=== PATIENT | male | born 1950 | race Caucasian/White ===

== ENCOUNTER → 2024-04-20 | Outpatient (CLI) | payer MEDICARE, SELFPAY ==
[2024-04-20 10:20] LABS: Basophils # (Auto) 0.1 Thou/mm3 (0.0-0.2); Basophils % (Auto) 1 % (0-2.5); Eosinophils # (Auto) 0.2 Thou/mm3 (0.0-0.5); Eosinophils % (Auto) 2 % (0-10); Hematocrit 39.2 % (41.0-53.0); Hemoglobin 12.8 g/dL (13.5-16.0); Immature Granulocytes % (Auto) 0 % (0-0); Immature Granulocytes Auto 0.03 Thou/mm3 (0.00-0.00); Lymphocytes # (Auto) 0.9 Thou/mm3 (1.0-4.8); Lymphocytes % (Auto) 11 % (10-50); Mean Corpuscular HGB Conc 32.7 g/dl (31.0-37.0); Mean Corpuscular Hemoglobin 30.5 pg (25.0-35.0); Mean Corpuscular Volume 93 fL (80-100); Monocytes # (Auto) 0.9 Thou/mm3 (0.0-0.8); Monocytes % (Auto) 10 % (0-12); Neutrophils # (Auto) 6.4 Thou/mm3 (1.8-7.7); Neutrophils % (Auto) 76 % (37-80); Nucleated Red Blood Cell % 0 /100 WBC (0); Platelet Count 305 Thou/mm3 (140-440); RDW Standard Deviation 50.3 fL (35.1-43.9); White Blood Count 8.4 Thou/mm3 (3.8-10.6)
[2024-04-20 10:37] LABS: Alanine Aminotransferase 21 U/L (10-49); Albumin, Serum 3.9 gm/dL (3.4-4.8); Alkaline Phosphatase 152 U/L (46-116); Anion Gap 8 (7-16); Aspartate Amino Transferase 19 U/L (0-34); BUN/Creatinine Ratio 19 Ratio (12-20); Bilirubin,Direct 0.3 mg/dL (0.0-0.3); Bilirubin,Total 0.8 mg/dL (0.3-1.2); Blood Urea Nitrogen 21 mg/dL (9-23); Calcium 9.1 mg/dL (8.3-10.6); Carbon Dioxide 28.2 mMol/L (20.0-31.0); Cardiac Risk Estimate 3.3 RATIO (4.0-6.7); Chloride 103 mMol/L (98-107); Cholesterol 166 mg/dL (132-200); Creatinine (Component) 1.1 mg/dL (0.6-1.3); Free T4 (Free Thyroxine) 1.23 ng/dL (0.89-1.76); Glucose 109 mg/dL (74-106); HDL Cholesterol 51 mg/dL (40-60); LDL Cholesterol,Calculated 100 mg/dL (0-130); Osmolality,Calculated 281 (275-295); Potassium 4.3 mMol/L (3.4-5.1); Sodium 139 mMol/L (136-145); Thyroid Stimulating Hormone 3.91 uIU/mL (0.55-4.78); Total Protein 6.5 gm/dL (5.7-8.2); Triglycerides 76 mg/dL (30-150); eGFR > 60 See Note
[2024-04-20 10:40] LABS: B-Type Natriuretic Peptide 459 pg/mL (0-100)
== END | disposition home or self-care (01) ==
LOC: COPL 08:53
PROVIDERS: PCP Family Medicine; Referring Provider Internal Medicine Cardiovascular Disease; Visit Provider Internal Medicine Cardiovascular Disease
DX: I11.0 Hypertensive heart disease with heart failure (principal); I50.9 Heart failure, unspecified; I48.0 Paroxysmal atrial fibrillation; I25.118 Atherosclerotic heart disease of native coronary artery with other forms of angina pectoris; E78.00 Pure hypercholesterolemia, unspecified
CPT/HCPCS: 36415; 80048; 80061; 80076; 83880; 84439; 84443; 85025

== ENCOUNTER 2024-07-06 07:28 | Day surgery (SDC) | payer MEDICARE, SELFPAY ==
[2024-07-02 15:41] VITALS: BMI 41.8
[2024-07-06] VITALS (7 sets, daily range): BP systolic 126–162; BP diastolic 63–78; PULSE 53–78; RESP 12–17; TEMP 36.5; O2SAT 96–99
[2024-07-06 07:18] LABS: Basophils # (Auto) 0.1 Thou/mm3 (0.0-0.2); Basophils % (Auto) 1 % (0-2.5); Eosinophils # (Auto) 0.2 Thou/mm3 (0.0-0.5); Eosinophils % (Auto) 2 % (0-10); Hematocrit 35.2 % (41.0-53.0); Hemoglobin 11.9 g/dL (13.5-16.0); Immature Granulocytes % (Auto) 0 % (0-0); Immature Granulocytes Auto 0.03 Thou/mm3 (0.00-0.00); Lymphocytes % (Auto) 10 % (10-50); Mean Corpuscular HGB Conc 33.8 g/dl (31.0-37.0); Mean Corpuscular Hemoglobin 31.8 pg (25.0-35.0); Mean Corpuscular Volume 94 fL (80-100); Monocytes # (Auto) 1.1 Thou/mm3 (0.0-0.8); Monocytes % (Auto) 11 % (0-12); Neutrophils # (Auto) 7.7 Thou/mm3 (1.8-7.7); Neutrophils % (Auto) 76 % (37-80); Nucleated Red Blood Cell % 0 /100 WBC (0); Platelet Count 282 Thou/mm3 (140-440); RDW Standard Deviation 50.4 fL (35.1-43.9); Red Blood Count 3.74 Miln/mm3 (4.50-5.90)
[2024-07-06 07:35] LABS: Anion Gap 7 (7-16); BUN/Creatinine Ratio 16 Ratio (12-20); Blood Urea Nitrogen 19 mg/dL (9-23); Calcium 8.6 mg/dL (8.3-10.6); Carbon Dioxide 27.3 mMol/L (20.0-31.0); Chloride 105 mMol/L (98-107); Creatinine (Component) 1.2 mg/dL (0.6-1.3); Estimated Creatinine Clearance 78.4 mL/min (>60); Glucose 112 mg/dL (74-106); INR 1.1 (0.9-1.3); Osmolality,Calculated 280 (275-295); Partial Thromboplastin Time 25.6 Seconds (22.0-36.0); Potassium 4.2 mMol/L (3.4-5.1); Prothrombin Time 11.6 Seconds (9.0-12.2); Sodium 139 mMol/L (136-145); eGFR > 60 See Note
[2024-07-06] MEDS: HYDROcodone/APAP 10/325 TAB PO (09:17)
--- NOTE | 2024-07-06 18:57 | ESOP_ITS ---
RE: DEMARCUS SINCLAIR : 1950 DATE OF OPERATION: 07/06/2024 PROCEDURE PERFORMED: 1. Dual chamber AICD generator change out. 2. Conscious sedation monitoring. INDICATIONS FOR PROCEDURE: The patient with a history of arteriosclerotic heart disease, chronic congestive heart failure, previous history of AICD implantation. During the routine check, the patient was noted to have end-of-life parameters of the pacemaker generator. DETAILS OF THE PROCEDURE: After explaining the procedure in detail to the patient and after obtaining appropriate consent, the patient was given intravenous Versed and intravenous fentanyl as premedication. The left subclavian area was prepped with antiseptic solution. Local anesthetic 2% lidocaine was used and an oblique incision 5 cm in length was made in the left subclavian area. Subcutaneous tissue was dissected and AICD pocket was opened. The generator was taken out of the pocket. The leads were unsecured and were tested and as the leads were functioning appropriately, new AICD generator were attached to the leads and was put back in the pocket. The pocket was irrigated with IV vancomycin solution and subcutaneous tissue was closed with 2- 0 chromic catgut continuous sutures. Skin was closed with yobani. The patient tolerated the procedure very well without any complications. The AICD data obtained is as follows: The atrial lead threshold potential obtained is 1.25 volts with lead resistance of 494 ohms and P-wave amplitude of 1.3 millivolts. Ventricular lead threshold potential obtained is 0.75 volts with lead resistance of 342 ohms and RV amplitude of 12.8 millivolts. The AICD used is [employer] [place] XTDR serial number [id number]. The AICD settings were set at VT mode above 143 beats per minute and VF mode of over 200 beats per minute at 40 joules each shock. The VT mode was set at first time with 20 joules and repeat one with 40 joules. DT: 09:06:21 TT: 13:23:00 Ref: [id number] - TID: [id number]
== END 2024-07-06 10:34 | disposition home or self-care (01) ==
PROVIDERS: Referring Provider Internal Medicine Cardiovascular Disease; Visit Provider Internal Medicine Cardiovascular Disease
PROC: (CPT 33228; principal; 2024-07-06 07:30)
DX: Z45.02 Encounter for adjustment and management of automatic implantable cardiac defibrillator (principal); E78.00 Pure hypercholesterolemia, unspecified; I10 Essential (primary) hypertension; I48.0 Paroxysmal atrial fibrillation; Z95.1 Presence of aortocoronary bypass graft; I50.9 Heart failure, unspecified; I25.10 Atherosclerotic heart disease of native coronary artery without angina pectoris
CPT/HCPCS: 33228; 36415; 80048; 85025; 85610; 85730; 99152; 99153; A4649; C1882; J0171; J0461; J2250; J2310; J2371; J3010; J3490; A9270

== ENCOUNTER 2024-08-22 20:15 | Inpatient (IN) | payer MEDICARE, SELFPAY ==
[2024-08-22] VITALS (7 sets, daily range): BP systolic 144–151; BP diastolic 47–76; PULSE 72–92; RESP 18–94; TEMP 37.4–37.5; O2SAT 24–97; BMI 44.7
--- NOTE | 2024-08-22 20:17 | EKG_ITS ---
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
--- NOTE | 2024-08-22 20:21 | XR_ITS ---
Examination: CT brain head without contrast. 2-D sagittal coronal reconstructions Date and time of exam:August 22, 2024 2126 hours INDICATIONS: Frequent falls this week with head pain CTDI: vol (mGy):11.5 DLP: (mGycm):294 Technique: Multiple CT axial sections of the brain have been obtained, 5 mm slice thickness. Contrast has not been administered. 2-D sagittal, coronal reconstructions have been obtained Low dose protocols were performed. One or more of the following dose reduction techniques were used; automated exposure control, adjustment of the mA and/or KV according to patient size, use of iterative reconstruction technique. Findings: No significant ventricular enlargement. Intra-axial or extra-axial hemorrhage density is not seen. No mass effect or midline shift Basal cisterns are not remarkable. Fourth ventricle is midline. Cranial vault intact. Impression: Negative for acute hemorrhage, mass effect or midline shift
--- NOTE | 2024-08-22 20:21 | XR_ITS ---
Examination: CT cervical spine without contrast 2-D sagittal reconstructions 2-D coronal reconstructions 3-D reconstructions. Exam date and time:August 22, 2024 2122 hours INDICATIONS: Patient fell today with injury to the neck, neck pain CTDI:vol (mGy) 11.6 DLP: (mGycm) 295 Technique: Multiple 2 mm axial sections of the cervical spine have been obtained. The coronal and sagittal reconstructions have been obtained. 3-D reconstructions have been obtained. Low dose protocols were performed. One or more of the following dose reduction techniques were used; automated exposure control, adjustment of the mA and/or KV according to patient size, use of iterative reconstruction technique. Findings: Axial sections demonstrate intact base of the skull. C1 exhibit satisfactory relationship to the odontoid. No acute cervical vertebral body fracture seen. Alignment posterior spinous processes satisfactory. Impression: No acute cervical fracture.
--- NOTE | 2024-08-22 20:22 | XR_ITS ---
Examination: AP chest single view Technique one AP portable semiupright chest single view Date and time: August 22, 20242042 hours INDICATIONS: Wheezing today. FINDINGS: Mild heart failure Mild large cardiac contour Prominent vascular congestion with early septal edema in the lung walter Cardiac leads satisfactory position IMPRESSION: Mild heart failure
--- NOTE | 2024-08-22 20:32 | PD.EDSOB ---
ED SOB =RME/HPI General Chief Complaint: Shortness of Breath/Dyspnea Stated Complaint: SOB Time Seen by Provider: 08/22/24 20:20 Source: patient and EMS Arrival date/time: 08/22/24 20:15 Mode of arrival: EMS Limitations: physical limitation RME / HPI RME / HPI Narrative: DR. GAUTAM?S MAIN ED EVALUATION: 74-year-old male with history of Pacemaker, HTN, and CAD presenting to the emergency department via EMS from home who is presenting for chief complaint of shortness of breath, generalized weakness and pain x 2 days. Patient also reports falling 2 times over the last 2 days. Denies hitting his head during falls, but does admit hitting his head when attempting to get back up. Patient fell evening around 2100 hours, then the fire department was able to get him back up at a730 hours the next morning. Patient fell again yesterday morning while trying to move from his motorized scooter to his desk chair. Patient has abrasions to BLE but attributes them to Xeralto. 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 No associated symptoms include abdominal pain and fever. Patient denies recent travel, history of COPD or current history of smoking or alcohol consumption, or any other associated symptoms or medical complaints. - PMH: Pacemaker, HTN, Pacemaker, Migraine, Coronary Artery Disease, Congestive Heart Failure, Edema, Chronic Obstructive Pulmonary Disease (COPD), Obesity, Renal Disease, Depression and Anxiety - PSH: Pacemaker - Social history: Former smoker, Former alcohol user - Current medications: Reviewed PCP is Unknown MD Complaint: shortness of breath Onset (ago): day(s) (2) Consistency/Duration: constant Exacerbating factors: exertion, movement and coughing Treatment prior to arrival: bronchodilator Related Data Home Medications ?Medication ?Instructions ?Recorded ?Confirmed amiodarone 200 mg tablet 200 mg PO QDAY 08/22/24 08/22/24 atorvastatin 40 mg tablet 40 mg PO QDAY 08/22/24 08/22/24 carvedilol 12.5 mg tablet 12.5 mg PO BID 08/22/24 08/22/24 furosemide 40 mg tablet 40 mg PO BID 08/22/24 08/22/24 lisinopril 5 mg tablet 5 mg PO QDAY 08/22/24 08/22/24 rivaroxaban 20 mg tablet (Xarelto) 20 mg PO QDAY 08/22/24 08/22/24 Allergies Allergy/AdvReac Type Severity Reaction Status Date / Time amoxicillin Allergy Verified 08/22/24 20:33 NSAIDS (Non-Steroidal Allergy Verified 08/22/24 22:59 Anti-Inflamma Penicillins Allergy Verified 08/22/24 20:33 salicylates Allergy Verified 08/22/24 20:33 Review of Systems Review of Systems Systems Reviewed: All systems reviewed, normal except as documented Past Medical History Past Medical History NEUROLOGIC: Positive Migraine CARDIAC: Positive Coronary Artery Disease, Congestive Heart Failure and Edema RESPIRATORY: Negative Chronic Obstructive Pulmonary Disease (COPD) GASTROINTESTINAL: Positive Obesity GENITOURINARY: Negative Renal Disease MUSCULOSKELETAL: Positive Musculoskeletal Disorders and Fractures ENDOCRINE: Negative Diabetes Mellitus Type 1 or Diabetes Mellitus Type 2 PSYCHO/SOCIAL: Positive Depression and Anxiety OTHER HISTORY: Positive Falls Surgical History SURGICAL: Positive Pacemaker Social History SMOKING STATUS: Former smoker ED Exam General Limitations: Present physical limitation General appearance: Present alert and in no apparent distress Head Head exam: Present atraumatic Eye Eye exam: Present normal appearance, PERRL and EOMI ENT ENT exam: Present normal exam, normal oropharynx and mucous membranes moist Neck Neck exam: Present normal inspection, full ROM and trachea midline Chest Chest inspection: Present normal inspection and symmetric chest wall rise Respiratory Respiratory exam: Present normal lung sounds bilaterally Cardiovascular Cardiovascular exam: Present regular rate, normal rhythm and normal heart sounds Abdominal Exam Abdominal exam: Present soft and normal bowel sounds Extremities Exam Extremities exam: Present normal inspection and full ROM Back Exam Back exam: Present normal inspection and full ROM Neurological Exam Neurological exam: Present alert, oriented X3 and CN II-XII intact Psychiatric Psychiatric exam: Present normal affect and normal mood Skin Skin exam: Present warm, dry, intact and normal color Course Quality Measures none Orders Category Date Time Status Bedside COVID-19 Antigen Test NOW Care 08/22/24 23:29 Active COVID-19 Screening Questionnaire NOW Care 08/22/24 23:55 Active Decision to Admit X1 Care 08/22/24 23:55 Completed EKG (ED ONLY) *Do not use* NOW Care 08/22/24 20:[address] cervical spine wo con Stat Exams 08/22/24 20:[address] head/brain wo con Stat Exams 08/22/24 20:[address] thoracic spine wo con Stat Exams 08/22/24 20:57 Completed CXRP [XR chest 1V portable] Stat Exams 08/22/24 20:22 Completed EKG (ED Only) Stat Exams 08/22/24 20:17 Draft BNP [B-Type Natriuretic Peptide] Stat Lab 08/22/24 20:49 Completed CBC Stat Lab 08/22/24 20:49 Completed CMP [Comprehensive Metabolic Panel] Stat Lab 08/22/24 20:49 Completed Mag [Magnesium] Stat Lab 08/22/24 20:49 Completed PTT [Partial Thromboplastin Time] Stat Lab 08/22/24 20:49 Completed Prothrombin Time with INR Stat Lab 08/22/24 20:49 Completed Troponin I Stat Lab 08/22/24 20:49 Completed Albuterol/Ipratr Rt Jacinta [Duoneb Rt Jacinta] Med 08/22/24 20:29 Discontinued 3 ml INH X1 ONE Albuterol/Ipratr Rt Jacinta [Duoneb Rt Jacinta] Med 08/22/24 22:34 Discontinued 3 ml INH X1 ONE Dexamethasone Inj [Decadron Inj] Med 08/22/24 23:53 Discontinued 6 mg IVP X1 ONE Diltiazem Inj [Cardizem Inj] Med 08/22/24 22:35 Discontinued 10 mg IV X1 ONE Furosemide Inj [Lasix Inj] Med 08/22/24 20:23 Discontinued 40 mg IVP X1 ONE Vital Signs Vital signs: Vital Signs Temperature 99.5 F 08/22/24 20:17 Pulse Rate 84 08/22/24 20:17 Respiratory Rate 94 H 08/22/24 20:17 Blood Pressure 151/76 H 08/22/24 20:17 Pulse Oximetry (%) 24 L 08/22/24 20:17 Oxygen Delivery Method Room Air 08/22/24 20:17 Shortness of Breath / Dyspnea MDM Narrative MDM Narrative:: Scribe Attestation: 08/22/2024 Jessy Wong am scribing for and in the presence of Dr. Gautam. Provider Notation: Although this document has been carefully reviewed, there may still be some phonetic and other typographical errors.? These errors are purely grammatical due to imperfections in the software program and should not be construed in any way to compromise the substance of the patient's medical care during this visit. ROS: shortness of breath, generalized weakness and pain, falls EDC: Differential diagnoses include CHF, COPD exacerbation, PE, Atrial Fibrillation Patient data External records reviewed:: [facility] previous records (No prior ED records available for review.) and EMS form Clinical information provided by:: patient and EMS Social determinants that could affect healthcare access:: none Patient has the following chronic illnesses:: Pacemaker, Migraine, Coronary Artery Disease, Congestive Heart Failure, Edema, Chronic Obstructive Pulmonary Disease (COPD), Obesity, Renal Disease, Depression and Anxiety How is presenting disease/condition affected by chronic disease/condition?: exacerbated by Evaluation data The following diagnostics were reviewed and interpreted by me:: lab results, radiology exam(s) and EKG tracing(s) (EKG manual reading, August 22, 2024 20:21 hours, my interpretation: Atrial fibrillation, 85 BPM, PA is 233, QTc is 512, QRS is -9.) Lab and/or radiology exams considered but not ordered:: None Interpretation Summary: RADIOLOGY Thoracic Spine CT: Findings: Adequate alignment thoracic vertebral bodies No thoracic vertebral body compression fracture Thoracic pedicles and lamina appear intact Moderate thoracic spondylosis IMPRESSION: No acute thoracic fracture Chest X-Ray: FINDINGS: Mild heart failure Mild large cardiac contour Prominent vascular congestion with early septal edema in the lung walter Cardiac leads satisfactory position IMPRESSION: Mild heart failure Head CT: Findings: No significant ventricular enlargement. Intra-axial or extra-axial hemorrhage density is not seen. No mass effect or midline shift Basal cisterns are not remarkable. Fourth ventricle is midline. Cranial vault intact. Impression: Negative for acute hemorrhage, mass effect or midline shift Cervical Spine CT: Findings: Axial sections demonstrate intact base of the skull. C1 exhibit satisfactory relationship to the odontoid. No acute cervical vertebral body fracture seen. Alignment posterior spinous processes satisfactory. Impression: No acute cervical fracture. LABS WBC 12, RBC 4.05, Hgb 13, Hct 37.1%, RDW Std Dev 49.9, Neut % 82%, Lymph % 6%, Neut # 9.8, Lymph # 0.7, [place] # 1.5, Immature Gran # 0.03. PT 12.5. BUN 32, BUN/Creatinine Ratio 27, Glucose 116, Total Bilirubin 1.4, AST 239, ALT 73, Alkaline Phosphatase 126, Troponin I 3.678, BNP 493. Medications / Prescriptions Medications or Prescriptions considered but not ordered:: None Medication administrations:: Medication Administration History Acetaminophen (Acetaminophen 325 Mg Tablet) 650 mg PO Q6H PRN PRN Reason: Fever >100.4 or Pain 1-3 Stop: 09/22/24 00:26 Albuterol/Ipratropium (Albuterol/Ipratropium (Duoneb) Rt Jacinta 3 Ml Nebu) 3 ml INH Q6HRRT ON LICENSE OF [facility] Stop: 09/22/24 00:59 Amiodarone HCl (Amiodarone Hcl 200 Mg Tablet) 200 mg PO QDAY ON LICENSE OF [facility] Stop: 09/22/24 08:59 Atorvastatin Calcium (Atorvastatin Calcium 20 Mg Tablet) 40 mg PO QDAY ON LICENSE OF [facility] Stop: 09/22/24 08:59 Carvedilol (Carvedilol 12.5 Mg Tablet) 12.5 mg PO BID ON LICENSE OF [facility] Stop: 09/22/24 08:59 Dexamethasone Sodium Phosphate (Dexamethasone Sod Phos Inj 4 Mg/Ml Vial) 6 mg IVP QDAY ON LICENSE OF [facility]; Protocol Stop: 09/23/24 08:59 Furosemide (Furosemide 40 Mg Tablet) 40 mg PO BID ON LICENSE OF [facility] Stop: 09/22/24 08:59 Gabapentin (Gabapentin 100 Mg Capsule) 200 mg PO BID ON LICENSE OF [facility] Stop: 09/22/24 00:49 Last Admin: 08/23/24 01:27 Dose: 200 mg Documented By: Remdesivir 100 mg/ Sodium (Chloride) 100 mls @ 100 mls/hr IV Q24H NR; Protocol Stop: 08/24/24 01:44 Ondansetron HCl (Ondansetron Inj 2 Mg/Ml Inj 2 Ml) 4 mg IVP Q6H PRN; Protocol PRN Reason: NAUSEA OR VOMITING Stop: 09/22/24 00:26 Oxycodone/Acetaminophen (Oxycodone/Apap 5/325 Tablet) 1 tab PO Q6HR PRN PRN Reason: PAIN SCALE 4-10(Mod-Sev Stop: 08/28/24 00:50 Last Admin: 08/23/24 02:37 Dose: 1 tab Documented By: EDUARDO Rivaroxaban (Rivaroxaban 10 Mg Tablet) 20 mg PO WSUPPER KARMEN Stop: 09/22/24 17:29 Discontinued Medications Albuterol/Ipratropium (Albuterol/Ipratropium (Duoneb) Rt Jacinta 3 Ml Nebu) 3 ml INH X1 ONE Stop: 08/22/24 20:30 Last Admin: 08/22/24 20:39 Dose: 3 ml Documented By: GREYSON Albuterol/Ipratropium (Albuterol/Ipratropium (Duoneb) Rt Jacinta 3 Ml Nebu) 3 ml INH X1 ONE Stop: 08/22/24 22:35 Last Admin: 08/22/24 22:40 Dose: 3 ml Documented By: GREYSON Dexamethasone Sodium Phosphate (Dexamethasone Sod Phos Inj 4 Mg/Ml Vial) 6 mg IVP X1 ONE; Protocol Stop: 08/22/24 23:54 Last Admin: 08/23/24 01:27 Dose: 6 mg Documented By: Diltiazem HCl (Diltiazem Inj 5 Mg/Ml Vial 5 Ml) 10 mg IV X1 ONE Stop: 08/22/24 22:36 Last Admin: 08/22/24 22:50 Dose: 10 mg Documented By: MODESTO Comments: pushed over 2mins Furosemide (Furosemide Inj 10 Mg/Ml 4ml Vial) 40 mg IVP X1 ONE Stop: 08/22/24 20:24 Last Admin: 08/22/24 20:37 Dose: 40 mg Documented By: MODESTO Sodium Chloride (Sodium Chloride Rt 10% 15 Ml Nebu) 5 ml INH X1 ONE Stop: 08/23/24 00:33 See above if any Consultations Consultation(s) initiated? (list below): Yes Consultation #1 (Physician, Specialty, Details): Dr. Carter made aware of the patient?s HPI, PMHx, lab and/or radiology results. Treatment plan was discussed. Will admit for further evaluation and management. Accepts patient for admission. Time: 00:00 Diagnosis Shortness of Breath Differential Diagnosis: congestive heart failure, pulmonary embolism and other (CHF exacerbation, COPD , PE, Atrial Fibrillation) Most likely diagnosis given after review of the tests above:: Atrial fibrilation, CHF, CHF exacerbation Admission Indicated Admission indicated?: indicated Explain why admission is indicated or not indicated:: CHF, CHF exacerbation, Atrial fibrilation, Elevated Troponin, Elevated BNP Admission Request Was there a request for admission?: Yes Admission Attestation Admission request attestation: Discussed case with [] from Hospitalist service regarding admission. Discussed patients ED course, exam findings, labs, and radiology results. The Hospitalist [agrees,declines] to accept the patient for admission. Disposition Plan Disposition Plan: Admit Critical Care Time Critical Care Time Critical Care Time: Yes Total Critical Care Time (min.): 45 Attestation: The high probability of sudden, clinically significant deterioration in the patient?s condition required the highest level of my preparedness to intervene urgently. The services I provided to this patient were to treat and/or prevent clinically significant deterioration. Services included the following: chart data review, reviewing nursing notes and/or old charts, documentation time, client relationship consultant collaboration regarding findings and treatment options, medication orders and management, direct patient care, vital sign assessments and ordering, interpreting and reviewing diagnostic studies and lab tests. Aggregate critical care time includes only time during which I was engaged in work directly related to the patient?s care, as described above, whether at bedside or elsewhere in the Emergency Department. It did not include time spent performing other reported procedures or the services of residents, students, nurses or physician assistants. Discharge Plan Plan Patient Disposition: Admit Acute Care w/in Hospital Problem List Clinical Impression: CHF (congestive heart failure), CHF exacerbation, Atrial fibrillation
[2024-08-22] MEDS: FUROSEMIDE INJ 10 MG/ML 4ML VIAL 40 MG IVP (20:37)
[2024-08-22] MEDS: ALBUTEROL/IPRATROPIUM (Duoneb) RT SOL 3 ML NEBU INH ×2 (20:39→22:40)
--- NOTE | 2024-08-22 20:57 | XR_ITS ---
Examination: CT thoracic spine, without contrast. 2-D sagittal reconstructions. 2-D coronal reconstructions. 3-D reconstructions. Date and time of exam:August 22, 2024 2126 hours INDICATIONS: Patient fell today with injury to the back, back pain CTDI: vol (mGy):34.5 DLP: (mGycm):3106 Technique: Multiple 1.25 mm axial sections of the thoracic spine have been obtained. 2-D sagittal and coronal reconstructions have been obtained. 3-D reconstructions have been obtained. Low dose protocols were performed. One or more of the following dose reduction techniques were used; automated exposure control, adjustment of the mA and/or KV according to patient size, use of iterative reconstruction technique. Findings: Adequate alignment thoracic vertebral bodies No thoracic vertebral body compression fracture Thoracic pedicles and lamina appear intact Moderate thoracic spondylosis IMPRESSION: No acute thoracic fracture
[2024-08-22 21:01] LABS: Basophils % (Auto) 0 % (0-2.5); Eosinophils % (Auto) 0 % (0-10); Hematocrit 37.1 % (41.0-53.0); Immature Granulocytes % (Auto) 0 % (0-0); Immature Granulocytes Auto 0.03 Thou/mm3 (0.00-0.00); Lymphocytes # (Auto) 0.7 Thou/mm3 (1.0-4.8); Lymphocytes % (Auto) 6 % (10-50); Mean Corpuscular Hemoglobin 32.1 pg (25.0-35.0); Mean Corpuscular Volume 92 fL (80-100); Monocytes # (Auto) 1.5 Thou/mm3 (0.0-0.8); Monocytes % (Auto) 12 % (0-12); Neutrophils # (Auto) 9.8 Thou/mm3 (1.8-7.7); Neutrophils % (Auto) 82 % (37-80); Nucleated Red Blood Cell % 0 /100 WBC (0); Platelet Count 252 Thou/mm3 (140-440); RDW Standard Deviation 49.9 fL (35.1-43.9); Red Blood Count 4.05 Miln/mm3 (4.50-5.90)
[2024-08-22 21:53] LABS: B-Type Natriuretic Peptide 493 pg/mL (0-100)
[2024-08-22 22:13] LABS: INR 1.2 (0.9-1.3); Partial Thromboplastin Time 29.2 Seconds (22.0-36.0); Prothrombin Time 12.5 Seconds (9.0-12.2)
[2024-08-22 22:22] LABS: Alanine Aminotransferase 73 U/L (10-49); Albumin/Globulin Ratio 1.4 (1.2-2.2); Alkaline Phosphatase 126 U/L (46-116); Anion Gap 10 (7-16); Aspartate Amino Transferase 239 U/L (0-34); BUN/Creatinine Ratio 27 Ratio (12-20); Bilirubin,Total 1.4 mg/dL (0.3-1.2); Blood Urea Nitrogen 32 mg/dL (9-23); Calcium 8.9 mg/dL (8.3-10.6); Calcium (Corrected) 8.9 mg/dL (8.5-10.1); Carbon Dioxide 24.6 mMol/L (20.0-31.0); Chloride 104 mMol/L (98-107); Creatinine (Component) 1.2 mg/dL (0.6-1.3); Estimated Creatinine Clearance 78.8 mL/min (>60); Globulin 2.9 gm/dL (2.3-3.5); Glucose 116 mg/dL (74-106); Magnesium 2.3 mg/dL (1.6-2.6); Osmolality,Calculated 285 (275-295); Sodium 139 mMol/L (136-145); Total Protein 6.9 gm/dL (5.7-8.2); eGFR > 60 See Note
[2024-08-22 22:25] LABS: Troponin I 3.678 ng/mL (0.0-0.045)
[2024-08-22] MEDS: DILTIAZEM INJ 5 MG/ML VIAL 5 ML 10 MG IV (22:50)
[2024-08-23] VITALS (14 sets, daily range): BP systolic 141–173; BP diastolic 63–89; PULSE 67–88; RESP 13–95; TEMP 36.1–36.9; O2SAT 90–100; BMI 44.7
--- NOTE | 2024-08-23 00:32 | ECHO_ITS ---
Transthoracic Echo Report Ht (in): 72 Wt (lb): 330 Exam Location: Echo Lab Status: Inpatient Comic Book Writer: RajeevPeggy marrero Indications: Procedure Performed: BP: 172 / 76 HR: 77 Technical Quality: Very technically difficult study MEASUREMENTS (Male / Female) Normal Values 2D ECHO LA Volume Index 26.4 cm?/m? 16 - 28 cm?/m? DOPPLER AV Peak Velocity 294.0 cm/s AV Peak Gradient 34.6 mmHg AV Mean Gradient 18.5 mmHg AV Velocity Time Integral 70.8 cm LVOT Peak Velocity 117.0 cm/s LVOT Peak Gradient 5.5 mmHg LVOT Velocity Time Integral 26.6 cm MV Area PHT 4.4 cm? Mitral E Point Velocity 89.7 cm/s Mitral A Point Velocity 96.0 cm/s Mitral E to A Ratio 0.9 LV E' Lateral Velocity 6.5 cm/s Mitral E to LV E' Lateral Ratio 13.7 LV E' Septal Velocity 3.0 cm/s Mitral E to LV E' Septal Ratio 29.4 TR Peak Velocity 169.5 cm/s TR Peak Gradient 11.5 mmHg FINDINGS Left Ventricle Normal left ventricular size, wall thickness. The ejection fraction is visually estimated at 20 %. Global left ventricular systolic function is severely decreased. Right Ventricle The right ventricle not well visualized, TAPSE normal. Left Atrium The left atrium is normal by two-dimensional, color flow and Doppler imaging with no structural abnormalities, no thrombus formation present. Right Atrium The right atrium is normal by two-dimensional imaging, color flow and Doppler imaging with no structural abnormalities, no thrombus formation present. Atrial Septum The interatrial septum appears normal with no evidence of a shunt. Aorta The aorta is normal by two-dimensional, color flow and Doppler interrogation. Mitral Valve The mitral valve is normal by two-dimensional, color flow and Doppler interrogation. There is no significant mitral valve regurgitation, stenosis or prolapse. Aortic Valve Mild to moderate aortic valve stenosis. Tricuspid Valve The tricuspid valve is normal by two-dimensional, color flow and Doppler interrogation. There is trace tricuspid valve regurgitation. Pulmonic Valve The pulmonic valve is not well visualized. There is no significant pulmonic valve regurgitation. Vessels Inferior vena cava not well visualized. Pericardium The pericardium is normal by two-dimensional imaging. There is no significant pericardial effusion. CONCLUSIONS Indication CHF All the cardiac structures suboptimally visualized. LV appears to be normal in size. The Estimated EF 20 %. Global left ventricular systolic function is severely decreased. The RV not well visualized, TAPSE normal. Mild to moderate . Donna Lin (Electronically Signed) Final Date: 24 Aug 2024 12:14
--- NOTE | 2024-08-23 00:46 | PD.RESHP ---
Documentation for date of: 08/23/24 [facility] History of Present Illness Chief complaint: General weakness, body aches, flu-like symptoms, cough with phelgm x 4 days History of present illness: Patient is a 74-year-old male with past medical history of CAD s/p CABG x3, HFrEF 30% s/p pacemaker/AICD, afib on Xarelto, hypertension, COPD, KIANA on CPAP, depression, and anxiety who presented to the ED on 08/22/2024 with symptoms of generalized weakness and frequent falls for 3 days. Patient lives at [facility] by himself. He fell evening and finally was able to call the fire department to get him up the next morning. He then had another fall the next day where it again took several hours before he was helped up. Patient typically gets around with his electric scooter and two canes for shorter distances. Patient describes general weakness in his lower body and pain from his sciatica bilaterally. He reports on Saturday, 08/19 this weakness started along with associated body aches, cough with brown phelgm, chills, and subjective fever. He denies any known sick contacts and generally does not go out often. He notes that he went out for a meal with a friend in [place] on Saturday. He otherwise denies any chest pain or pressure, any jaw or arm pain, shortness of breath, nausea, or vomiting. He follows regularly with Dr. Mcdonald and last had his pacemaker replaced in June 2024. ED Course: -Initial vitals were BP 151/76, HR 84, RR 24, Temp 99.4, O2 94 on room air -Labs significant for WBC 12.0, Hgb 13.0, BUN 32, creatinine 1.2, total bilirubin 1.4, AST 239, ALT 73, alk phos 126, troponin 3.678, BNP 493 -EKG showed normal sinus rhythm at a rate of 85, no ST-T changes, and prolonged AZ at 233 indicating a first-degree AV block -In the ED, patient was given furosemide 40 mg IV x1, albuterol/ipratropium 3 ml x2, diltiazem 10 mg IV x1, dexamethasone 6 mg IV x1 -Patient was admitted for COVID pneumonia and NSTEMI Review of Systems Review of systems otherwise negative except what is mentioned above. Past Medical History Past Medical History Comments PMH COMMENT: Past Medical History: CAD s/p CABG x3, HFrEF 30% s/p pacemaker/AICD, afib on Xarelto, hypertension, COPD, KIANA on CPAP, depression, and anxiety Family History: Surgical History: CABG x3 in 2005, debridement due to sternal infection following CABG, pacemaker/defibrillator implantation Social History: Former smoker quit few years ago (30-pack year history), denies current alcohol use, daily marijuana use for sleep and pain Current Medications: Xarelto 20 mg qday, amiodarone 200 mg qday, carvedilol 12.5 mg qday, furosemide 40 mg BID, lisinopril 5 mg qday, atorvastatin 40 mg qday (Source: [employer] rec) Allergies: NSAIDS, salicylates including aspirin, penicillins including amoxicillin Exam Vital Signs Temp Pulse Resp BP Pulse Ox O2 Del Method 99.4 F 75 19 144/47 H 97 Room Air 08/22/24 22:34 08/22/24 22:50 08/22/24 22:41 08/22/24 22:50 08/22/24 22:41 08/22/24 22:34 Narrative Exam Physical Exam General: Awake and in no acute distress. Conversational and non-toxic appearing. HEENT: Normocephalic, atraumatic, mucous membranes moist. CPAP nasal piece in place. Heart: Regular rate and rhythm, normal S1 and S2, no murmurs. Lungs: Clear to auscultation with no wheezing or crackles. Abdomen: Soft, obese, nondistended, nontender, positive bowel sounds. ?No guarding or rebound tenderness. Neurologic: Alert and oriented x3, 3/5 strength in bilateral lower extremities secondary to pain and general weakness, sensation intact. Extremities: 2+ nonpitting lower extremity edema. Skin: No rash or ecchymoses. Results: Labs 08/23/24 05:35 08/23/24 05:35 Labs: Short CBC 08/22/24 Range/Units 20:49 WBC 12.0 H (3.8-10.6) Thou/mm3 Hgb 13.0 L (13.5-16.0) g/dL Hct 37.1 L (41.0-53.0) % Plt Count 252 (140-440) Thou/mm3 BMP 08/22/24 20:49 Sodium 139 Potassium 4.0 Chloride 104 Carbon Dioxide 24.6 BUN 32 H Creatinine 1.2 Glucose 116 H Calcium 8.9 Cardiac Enzymes 08/22/24 Range/Units 20:49 Troponin I 3.678 H* (0.0-0.045) ng/mL Liver Function 08/22/24 Range/Units 20:49 Total Bilirubin 1.4 H (0.3-1.2) mg/dL AST 239 H (0-34) U/L ALT 73 H (10-49) U/L Alkaline Phosphatase 126 H (46-116) U/L Albumin 4.0 (3.4-4.8) gm/dL Quality Measures Quality Measures none Advance care planning discussed with:: patient Medications Home Medications and Allergies Home Medications ?Medication ?Instructions ?Recorded ?Confirmed ?Type amiodarone 200 mg tablet 200 mg PO QDAY 08/22/24 08/22/24 History atorvastatin 40 mg tablet 40 mg PO QDAY 08/22/24 08/22/24 History carvedilol 12.5 mg tablet 12.5 mg PO BID 08/22/24 08/22/24 History furosemide 40 mg tablet 40 mg PO BID 08/22/24 08/22/24 History lisinopril 5 mg tablet 5 mg PO QDAY 08/22/24 08/22/24 History rivaroxaban 20 mg tablet (Xarelto) 20 mg PO QDAY 08/22/24 08/22/24 History Allergies Allergy/AdvReac Type Severity Reaction Status Date / Time amoxicillin Allergy Verified 08/22/24 20:33 NSAIDS (Non-Steroidal Allergy Verified 08/22/24 22:59 Anti-Inflamma Penicillins Allergy Verified 08/22/24 20:33 salicylates Allergy Verified 08/22/24 20:33 Visit Medications Acetaminophen (Acetaminophen 325 Mg Tablet) 650 mg PO Q6H PRN PRN Reason: Fever >100.4 or Pain 1-3 Stop: 09/22/24 00:26 Albuterol/Ipratropium (Albuterol/Ipratropium (Duoneb) Rt Jacinta 3 Ml Nebu) 3 ml INH Q6HRRT KARMEN Stop: 09/22/24 00:59 Dexamethasone Sodium Phosphate (Dexamethasone Sod Phos Inj 4 Mg/Ml Vial) 6 mg IVP QDAY KARMEN; Protocol Stop: 09/23/24 08:59 Remdesivir 100 mg/ Sodium (Chloride) 100 mls @ 100 mls/hr IV Q24H NR; Protocol Stop: 08/24/24 01:44 Ondansetron HCl (Ondansetron Inj 2 Mg/Ml Inj 2 Ml) 4 mg IVP Q6H PRN; Protocol PRN Reason: NAUSEA OR VOMITING Stop: 09/22/24 00:26 Discontinued Medications Albuterol/Ipratropium (Albuterol/Ipratropium (Duoneb) Rt Jacinta 3 Ml Nebu) 3 ml INH X1 ONE Stop: 08/22/24 20:30 Last Admin: 08/22/24 20:39 Dose: 3 ml Albuterol/Ipratropium (Albuterol/Ipratropium (Duoneb) Rt Jacinta 3 Ml Nebu) 3 ml INH X1 ONE Stop: 08/22/24 22:35 Last Admin: 08/22/24 22:40 Dose: 3 ml Dexamethasone Sodium Phosphate (Dexamethasone Sod Phos Inj 4 Mg/Ml Vial) 6 mg IVP X1 ONE; Protocol Stop: 08/22/24 23:54 Diltiazem HCl (Diltiazem Inj 5 Mg/Ml Vial 5 Ml) 10 mg IV X1 ONE Stop: 08/22/24 22:36 Last Admin: 08/22/24 22:50 Dose: 10 mg Furosemide (Furosemide Inj 10 Mg/Ml 4ml Vial) 40 mg IVP X1 ONE Stop: 08/22/24 20:24 Last Admin: 08/22/24 20:37 Dose: 40 mg Sodium Chloride (Sodium Chloride Rt 10% 15 Ml Nebu) 5 ml INH X1 ONE Stop: 08/23/24 00:33 Assessment & Plan Plan 74-year-old male with past medical history of CAD s/p CABG x3, HFrEF 30% s/p pacemaker/AICD, afib on Xarelto, hypertension, COPD, KIANA on CPAP, depression, and anxiety who presented to the ED on 08/22/2024 with symptoms of generalized weakness and frequent falls for 3 days, admitted for COVID and NSTEMI. #NSTEMI, likely type 2 demand ischemia Initial troponin 3.678. Most likely demand ischemia, secondary to COVID, as patient has extensive cardiac history and low EF. Patient is not endorsing any chest pain symptoms, no ST-T changes on EKG. -Admit to Tele -Continue to trend troponin q6 until downtrend -Monitor for symptoms #COVID pneumonia Patient endorsed body aches, subjective fever, general weakness, and productive cough for 4 days. On arrival saturation was low 90s on room air, however patient also mildly tachypneic in the low 20s. WBC is elevated at 12.0. Patient meets sepsis criteria with 2/4 SIRS criteria. CXR shows cardiomegaly without obvious infiltrate. -Continue supportive care -Started remdesivir 100 mg qday -Continue dexamethasone 6 mg IV qday -DuoNebs scheduled q6h -Ordered sputum culture -Ordered blood cultures -Acetaminophen as needed for fever or pain -Zofran as needed for nausea #Paroxysmal afib, rate controlled Initial EKG in sinus rhythm however patient apparently went into afib while in ED, and was given a push of diltiazem, subsequently has been in sinus rhythm. Will resume home medications. -Continue home Xarelto 20 mg qday -Continue home amiodarone 200 mg qday -Continue home carvedilol 12.5 mg BID -Maintain K>4.0 and Mag>2.0 #HFrEF 30% s/p defibrillator, compensated Patient reports EF of about 30%, and follows with Dr. Mcdonald. He had his pacemaker/defibrillator first placed in 2005 shortly after the CABG. -Continue home furosemide 40 mg BID -Echo ordered as no echo on file -Fluid restrictions 1500 ml -Daily weights -Strict intake and output #Sciatic lower back pain -Started gabapentin 200 mg BID due to complaint of back pain #History of hypertension -Continue home lisinopril 5 mg qday #History of KIANA -Continue home CPAP at night DVT prophylaxis: Xarelto 20 mg qday GI prophylaxis: Not indicated Diet: Cardiac, fluid restriction 1500 ml Enriquez: None Lines: Peripheral IV Antibiotics: None CODE STATUS: DNR Reason for hospitalization: COVID pneumonia and NSTEMI Patient plan of care was discussed with the attending physician, Dr. Fernandez. Rina Carter, PGY-2 Attending Provider Attestation/Addendum I have examined the patient, reviewed labs and imaging findings, discussed the case with the resident(s), and reviewed entered orders. I agree with the plan of care as outlined in this note, with these additional summaries/recommendations: 74-year-old male with extensive past medical history including CAD s/p CABG, HFrEF with EF 30% status post pacemaker/AICD, A-fib on Xarelto, COPD, KIANA on CPAP presented to the ED with chief complaint of weakness, frequent falls, shortness of breath. Patient found to have troponin of over 3, chest x-ray showed vascular congestion and possible pneumonia, EKG with no ST-T changes. Patient denied any chest pain, NSTEMI likely type II, will consult cardiology and trend troponins. For COVID-pneumonia, will initiate patient on dexamethasone and remdesivir. Chito Fernandez MD
[2024-08-23] MEDS: GABAPENTIN 100 MG CAPSULE 200 MG PO ×2 (01:27→10:00)
[2024-08-23] MEDS: DEXAMETHASONE SOD PHOS INJ 4 MG/ML VIAL 6 MG IVP (01:27)
--- NOTE | 2024-08-23 01:43 | PC.NURSE ---
REPORT GIVEN TO FLOOR RNJEAN CLAUDE
[2024-08-23 02:24] LABS: Troponin I 3.122 ng/mL (0.0-0.045)
[2024-08-23] MEDS: oxyCODONE/APAP 5/325 TABLET 1 TAB PO ×2 (02:37→10:04)
[2024-08-23 05:52] LABS: Basophils % (Auto) 0 % (0-2.5); Eosinophils % (Auto) 0 % (0-10); Hematocrit 39.6 % (41.0-53.0); Hemoglobin 13.4 g/dL (13.5-16.0); Immature Granulocytes % (Auto) 0 % (0-0); Immature Granulocytes Auto 0.04 Thou/mm3 (0.00-0.00); Lymphocytes # (Auto) 0.2 Thou/mm3 (1.0-4.8); Lymphocytes % (Auto) 2 % (10-50); Mean Corpuscular HGB Conc 33.8 g/dl (31.0-37.0); Mean Corpuscular Volume 95 fL (80-100); Monocytes # (Auto) 0.5 Thou/mm3 (0.0-0.8); Monocytes % (Auto) 5 % (0-12); Neutrophils # (Auto) 10.2 Thou/mm3 (1.8-7.7); Neutrophils % (Auto) 92 % (37-80); Nucleated Red Blood Cell % 0 /100 WBC (0); Platelet Count 246 Thou/mm3 (140-440); RDW Standard Deviation 51.4 fL (35.1-43.9); Red Blood Count 4.19 Miln/mm3 (4.50-5.90)
[2024-08-23 06:21] LABS: Alanine Aminotransferase 80 U/L (10-49); Albumin, Serum 4.2 gm/dL (3.4-4.8); Albumin/Globulin Ratio 1.4 (1.2-2.2); Alkaline Phosphatase 132 U/L (46-116); Anion Gap 14 (7-16); Aspartate Amino Transferase 224 U/L (0-34); BUN/Creatinine Ratio 25 Ratio (12-20); Bilirubin,Total 1.5 mg/dL (0.3-1.2); Blood Urea Nitrogen 30 mg/dL (9-23); Carbon Dioxide 23.7 mMol/L (20.0-31.0); Chloride 101 mMol/L (98-107); Creatinine (Component) 1.2 mg/dL (0.6-1.3); Estimated Creatinine Clearance 78.8 mL/min (>60); Globulin 3.1 gm/dL (2.3-3.5); Glucose 140 mg/dL (74-106); Magnesium 2.3 mg/dL (1.6-2.6); Osmolality,Calculated 285 (275-295); Phosphorous 3.2 mg/dL (2.4-5.1); Potassium 4.3 mMol/L (3.4-5.1); Sodium 139 mMol/L (136-145); Thyroid Stimulating Hormone 1.74 uIU/mL (0.55-4.78); Total Protein 7.3 gm/dL (5.7-8.2); eGFR > 60 See Note
[2024-08-23 06:33] LABS: Cardiac Risk Estimate 3.7 RATIO (4.0-6.7); Cholesterol 179 mg/dL (132-200); HDL Cholesterol 49 mg/dL (40-60); LDL Cholesterol,Calculated 105 mg/dL (0-130); Triglycerides 123 mg/dL (30-150)
[2024-08-23] MEDS: ALBUTEROL/IPRATROPIUM (Duoneb) RT SOL 3 ML NEBU INH (07:19)
[2024-08-23 08:08] LABS: Troponin I 2.365 ng/mL (0.0-0.045)
[2024-08-23 08:31] LABS: Creatine Kinase 5491 U/L (34-171)
--- NOTE | 2024-08-23 09:32 | PD.RESPRO ---
Documentation for date of: 08/23/24 Subjective Subjective Interval history: Patient seen and examined at bedside this a.m. Overnight had rounds of V. tach and SVT on telemetry review, the rest of the time he was in A-fib with rates between 70s?80s. Patient says that he feels generalized weakness and pain today. Denies any chest pain/pressure, palpitations, shortness of breath, presyncope and syncope. Possible right sided weakness, stroke alert was activated and teleneurology recommended no further workup. 600 cc of urine output since admission, non-ambulant. Troponin downtrending from 3.122-2.365, BUN 30, CR 1.2. Cardiology, Dr. Lin consulted. Ordered CK, HbA1c. Discontinued troponin checks due to downtrending. Pending transthoracic echocardiogram. Exam Vital Signs Temp Pulse Resp BP Pulse Ox O2 Del Method 98.5 F 74 26 H 155/68 H 99 BiPAP 08/23/24 08:00 08/23/24 08:00 08/23/24 08:00 08/23/24 08:00 08/23/24 08:00 08/23/24 08:00 Narrative Exam Constitutional Alert, oriented x 3 and comfortable. Elderly male HEENT Vision grossly intact. Patent nares. Trachea midline Respiratory Chest normal on inspection and bilateral polyphonic wheeze in all lung wooten Cardiovascular S1 and S2 audible, RRR. No murmurs carotid bruit. No gross JVD. Abdominal Soft, obese and non tender to palpation in all quadrants. BS + Genitourinary No bladder tenderness, no flank pain. Normal to palpation Musculoskeletal Extremities tone within normal limits. No LE edema. Skin Warm, dry and intact. No apparent lesions. Psychiatric Patient has good affect, is cooperative Neurological CN II - XII grossly intact. Extremity motor and sensation grossly intact. 1A: Level of Consciousness - Alert; keenly responsive + 0 1B: Ask Month and Age - Both Questions Right + 0 1C: Blink Eyes & Squeeze Hands - Performs Both Tasks + 0 2: Test Horizontal Extraocular Movements - Normal + 0 3: Test Visual Wooten - No Visual Loss + 0 4: Test Facial Palsy (Use Grimace if Obtunded) - Minor paralysis (flat nasolabial fold, smile asymmetry) + 1 5A: Test Left Arm Motor Drift - No Drift for 10 Seconds + 0 5B: Test Right Arm Motor Drift - No Drift for 10 Seconds + 0 6A: Test Left Leg Motor Drift - No Drift for 5 Seconds + 0 6B: Test Right Leg Motor Drift - No Drift for 5 Seconds + 0 7: Test Limb Ataxia (FNF/Heel-Oneil) - No Ataxia + 0 8: Test Sensation - Normal; No sensory loss + 0 9: Test Language/Aphasia - Normal; No aphasia + 0 10: Test Dysarthria - Normal + 0 11: Test Extinction/Inattention - No abnormality + 0 NIHSS Score: 1 NIHSS Free Text : The patient is completely cognitively intact. There really isn't a nasolabial fold but there is a slight asymmetry of his smile with slightly less prominence of the LEFT nasolabial fold than the right. He is adamant that this is his normal smile. Pre-Morbid Modified Tulio Scale:3 Points = Moderate disability; requiring some help, but able to walk without assistance Objective Labs 08/23/24 05:35 08/23/24 05:35 Labs: Laboratory Results - last 24 hr 08/22/24 08/23/24 08/23/24 20:49 01:19 05:35 WBC 12.0 H 11.0 H RBC 4.05 L 4.19 L Hgb 13.0 L 13.4 L Hct 37.1 L 39.6 L MCV 92 95 MCH 32.1 32.0 MCHC 35.0 33.8 RDW Std Deviation 49.9 H 51.4 H Plt Count 252 246 Neut % (Auto) 82 H 92 H Lymph % (Auto) 6 L 2 L Mckean % (Auto) 12 5 Eos % (Auto) 0 0 Baso % (Auto) 0 0 Neut # (Auto) 9.8 H 10.2 H Lymph # (Auto) 0.7 L 0.2 L Mckean # (Auto) 1.5 H 0.5 Eos # (Auto) 0.0 0.0 Baso # (Auto) 0.0 0.0 Immature Gran # (Auto) 0.03 H 0.04 H Absolute Nucleated RBC 0.00 0.00 Immature Gran % 0 0 Nucleated RBC % 0 0 PT 12.5 H INR 1.2 APTT 29.2 Sodium 139 139 Potassium 4.0 4.3 Chloride 104 101 Carbon Dioxide 24.6 23.7 Anion Gap 10 14 BUN 32 H 30 H Creatinine 1.2 1.2 Estim Creat Clear Calc 78.8 78.8 eGFR > 60 > 60 BUN/Creatinine Ratio 27 H 25 H Glucose 116 H 140 H Calculated Osmolality 285 285 Calcium 8.9 9.0 Corrected Calcium 8.9 9.0 Phosphorus 3.2 Magnesium 2.3 2.3 Total Bilirubin 1.4 H 1.5 H AST 239 H 224 H ALT 73 H 80 H Alkaline Phosphatase 126 H 132 H Total Creatine Kinase Troponin I 3.678 H* 3.122 H* D B-Natriuretic Peptide 493 H* Total Protein 6.9 7.3 Albumin 4.0 4.2 Globulin 2.9 3.1 Albumin/Globulin Ratio 1.4 1.4 Triglycerides 123 Cholesterol 179 LDL Cholesterol, Calc 105 HDL Cholesterol 49 Cholesterol/HDL Ratio 3.7 L TSH 1.74 08/23/24 06:30 WBC RBC Hgb Hct MCV MCH MCHC RDW Std Deviation Plt Count Neut % (Auto) Lymph % (Auto) Mckean % (Auto) Eos % (Auto) Baso % (Auto) Neut # (Auto) Lymph # (Auto) Mckean # (Auto) Eos # (Auto) Baso # (Auto) Immature Gran # (Auto) Absolute Nucleated RBC Immature Gran % Nucleated RBC % PT INR APTT Sodium Potassium Chloride Carbon Dioxide Anion Gap BUN Creatinine Estim Creat Clear Calc eGFR BUN/Creatinine Ratio Glucose Calculated Osmolality Calcium Corrected Calcium Phosphorus Magnesium Total Bilirubin AST ALT Alkaline Phosphatase Total Creatine Kinase 5491 H Troponin I 2.365 H* D B-Natriuretic Peptide Total Protein Albumin Globulin Albumin/Globulin Ratio Triglycerides Cholesterol LDL Cholesterol, Calc HDL Cholesterol Cholesterol/HDL Ratio TSH Quality Measures Quality Measures none Advance care planning discussed with:: patient Assessment & Plan Assessment Current Active Medications: Generic Name Dose Route Start Last Admin Trade Name Freq PRN Reason Stop Dose Admin Acetaminophen 650 mg 08/23/24 00:27 Acetaminophen 325 Mg Tablet PO 09/22/24 00:26 Q6H PRN Fever >100.4 or Pain 1-3 Albuterol/Ipratropium 3 ml 08/23/24 01:00 08/23/24 07:19 Albuterol/Ipratropium (Duoneb) Rt Jacinta 3 Ml Nebu INH 09/22/24 00:59 3 ml Q6HRRT KARMEN Administration Amiodarone HCl 200 mg 08/23/24 09:00 Amiodarone Hcl 200 Mg Tablet PO 09/22/24 08:59 QDAY [facility] Atorvastatin Calcium 40 mg 08/23/24 09:00 Atorvastatin Calcium 20 Mg Tablet PO 09/22/24 08:59 QDAY [facility] Carvedilol 12.5 mg 08/23/24 09:00 Carvedilol 12.5 Mg Tablet PO 09/22/24 08:59 BID [facility] Dexamethasone Sodium Phosphate 6 mg 08/24/24 09:00 Dexamethasone Sod Phos Inj 4 Mg/Ml Vial IVP 09/23/24 08:59 QDAY [facility] Protocol Furosemide 40 mg 08/23/24 09:00 Furosemide 40 Mg Tablet PO 09/22/24 08:59 BID [facility] Gabapentin 200 mg 08/23/24 00:50 08/23/24 01:27 Gabapentin 100 Mg Capsule PO 09/22/24 00:49 200 mg BID KARMEN Administration Remdesivir 100 mg/ Sodium 100 mls @ 100 mls/hr 08/24/24 09:00 Chloride IV 08/25/24 09:59 Q24H NR Protocol Remdesivir 200 mg/ Sodium 250 mls @ 250 mls/hr 08/23/24 09:00 Chloride IV 08/23/24 09:59 X1 ONE Lisinopril 5 mg 08/23/24 09:00 Lisinopril 2.5 Mg Tablet PO 09/22/24 08:59 QDAY [facility] Ondansetron HCl 4 mg 08/23/24 00:27 Ondansetron Inj 2 Mg/Ml Inj 2 Ml IVP 09/22/24 00:26 Q6H PRN NAUSEA OR VOMITING Protocol Oxycodone/Acetaminophen 1 tab 08/23/24 00:51 08/23/24 02:37 Oxycodone/Apap 5/325 Tablet PO 08/28/24 00:50 1 tab Q6HR PRN Administration PAIN SCALE 4-10(Mod-Sev Rivaroxaban 20 mg 08/23/24 17:30 Rivaroxaban 10 Mg Tablet PO 09/22/24 17:29 WSUPPER [facility] Plan 74-year-old male with past medical history of CAD s/p CABG x3, HFrEF 30% s/p METAL SPRAYER MACHINED PARTS?D 07/06/24, afib on Xarelto, primary hypertension, COPD, KIANA on CPAP, depression, and anxiety who presented to the ED on 08/22/2024 with symptoms of generalized weakness and frequent falls for 3 days, admitted for COVID and NSTEMI. #CVA rule out Possible right sided weakness, stroke alert was activated and teleneurology recommended no further workup NIHSS 1. asymmetric facial droop since which is chronic Plan: ? Teleneurology recommended no further workup COVID Pneumonia Transaminitis, r-factor 1.4, likely cholestatic Plan: - Pending blood and sputum culture ? Continue to monitor CMP for LFTs - Remdesivir 200 Mg IV x 1 - Then remdesivir 100 Mg IV for the next 2 days based on ALT tomorrow - Switched dexamethasone to 6 Mg p.o. daily - Discontinued DuoNebs ? Started on levalbuterol Q8 hourly and ipratropium Q8 hourly - Started chest physiotherapy every 8 hourly History of tobacco use ?COPD Patient has chronic productive cough for past 2 years. And is an ex-smoker with [id number] history, quit a few years ago. According to him he had formal PFTs done as an outpatient through his PCP and states that the results were normal. We will request records from his PCP office. Currently high suspicion of COPD given patient history and symptoms, will treat as such. Plan: ? Continue nebs as above ? Peak flow ordered # Rhabdomyolysis secondary to fall, creatinine kinase 5491 DDx: Rhabdomyolysis, medication side effect, heat stress Patient had history of frequent falls during the past week and was immobilized for greater than 8 hours yesterday before fire service came to help him. Denied dark urine CK elevated at 5491. Plan: ? Repeat CK tomorrow morning ? Urinalysis ordered to assess for myoglobinuria [RBCs] ? Normal saline 250 cc bolus, gentle fluids considering history of heart failure with low EF - Orthostatic vitals x 1 ordered to rule out orthostatic hypotension as etiology of falls ? Physical therapy assessment ordered NSTEMI type II, likely secondary to demand ischemia Patient currently denies any chest pain/pressure, palpitations. Troponin downtrending from 3.122 - 2.365. EKG on admission did not show any ST changes. Etiology likely type II from demand ischemia secondary to CHF and COVID pneumonia. Plan: ? No need to further trend troponin ? TTE pending ? Cardiology, Dr. Lin consulted. Appreciate recommendation Paroxysmal afib?rate controlled and on anticoagulation Initial EKG in sinus rhythm however patient apparently went into afib while in ED, and was given a push of diltiazem, subsequently has been in sinus rhythm. Will resume home medications. From telemetry reviewed patient was on A-fib overnight rate 70s/80s. A few rounds of SVT and V. tach Plan: ? Continue radiation monitor ? Continue rhythm control with home medication amiodarone 200 Mg p.o. daily ? Continue rate control with carvedilol 12.5 Mg p.o. twice daily ? Continue anticoagulation with home medication rivaroxaban 20 Mg p.o. at bedtime ? Will maintain potassium greater than 4 and magnesium greater than 2 at all times without any further arrhythmias Chronic systolic congestive heart failure with reduced EF [30%] s/p METAL SPRAYER MACH[employer]ED [employer]S-D 07/06/2024 CAD s/p CABG Patient reports EF of about 30%, no echo seen on file and follows with Dr. Mcdonald. He had his first METAL SPRAYER MACHINED PARTS-D first placed in 2005 shortly after the CABG , last battery change, 07/06/2024. BNP on admission 493. Home diuretic furosemide 40 Mg p.o. twice daily NYHA stage III class C. Patient uses a motorized walker at baseline Plan: - Strict input/output charting - Daily weight recording - Diet: 2g sodium restriction - Fluid restriction to 1.5L/day ? Continue home diuretic furosemide 40 Mg p.o. twice daily - TTE pending ? Cardiology, Dr. Lin consulted. Appreciate recommendation Sciatic lower back pain - Continue gabapentin 200 mg BID due to complaint of back pain Primary hypertension Hyperlipidemia - Continue home lisinopril 5 mg qday ? Statin on hold due to transaminitis History of KIANA -Continue CPAP at night Health maintenance: Disposition: IV medication for COVID. Pending physical therapy assessment. Trending CK. Diet: Cardiac, 1500 cc fluid restriction Lines: pIVs GI Prophylaxis: Pantoprazole Thrombo Prophylaxis: Rivaroxaban Code status: DNR Plan of care discussed with Attending Dr. Kenney Ramirez MD PGY 1 Disclaimer: This note was dictated by speech recognition. Minor errors in court of appeals judge may be present due to voice recognition software. Attending Provider Attestation/Addendum I have discussed and was present for the essential components of the history, physical examination, diagnosis, and treatment plan with the resident. I agree with the patient's care as documented by the resident and amended herein by me. John Moulton DO. Although this document has been carefully reviewed, there may still be some phonetic and other typographical errors. These errors are purely grammatical due to imperfections in the software program and should not be construed in any way to compromise the substance of the patient's medical care during this visit.
[2024-08-23] MEDS: ATORVASTATIN CALCIUM 20 MG TABLET 40 MG PO (09:59)
[2024-08-23] MEDS: Lisinopril 2.5 MG TABLET 5 MG PO (09:59)
[2024-08-23] MEDS: REMDESIVIR INJ 200 MG in SODIUM CHLORIDE 0.9% 250 ML 250 ML 250 MG IV (09:59)
[2024-08-23] MEDS: carVEDILOL 12.5 MG TABLET PO (10:00)
[2024-08-23] MEDS: Furosemide 40 MG TABLET PO (10:00)
[2024-08-23] MEDS: AMIODARONE HCL 200 MG TABLET PO (10:00)
--- NOTE | 2024-08-23 10:33 | PD.TNEURO ---
Tele Neuro Consultation Consultation Date 08/23/24 Most Recent Vital Signs Last Vital Signs Temp 98.5 F 08/23/24 08:00 Pulse 88 08/23/24 10:00 Resp 26 H 08/23/24 08:00 BP 166/77 H 08/23/24 10:00 Pulse Ox 99 08/23/24 08:00 O2 Del Method BiPAP 08/23/24 08:00 Laboratory-Coagulation Panel PT 12.5 Seconds (9.0-12.2) H 08/22/24 20:49 INR 1.2 (0.9-1.3) 08/22/24 20:49 APTT 29.2 Seconds (22.0-36.0) 08/22/24 20:49 Consultation Narrative [facility] Patient Name:???Omar Bedolla Date of :???1950 Identification Number:???MRN - Omar Bedolla Date of Service:???08/23/2024 09:39:05 Diagnosis:?R29.6 - Fall Repeated Impression: ?This is a 74 y/o man who was admitted yesterday to the hospital after multiple falls beginning August 20. He has had progressive mobility issues over years. He takes rivaroxaban for atrial fibrillation and last took it August 20. In the hospital he has been found to have runs of VT and is COVID positive. ?The patient feels fine other than the frustration he has with not being able to ambulate and get up from the floor when he falls. RNs called a stroke alert because they noticed that he has an asymmetric smile. The patient informed them that he has always had that smile but as they had not noticed it previously in the day, they wanted to be cautious. He denies headache, neck pain, dizziness, visual changes, speech changes, numbness, tingling, or new weakness. ? ?#1 Asymmetric smile from ? ?I do not recommend any further diagnostic investigation. Sign Out: ? Discussed with Rapid Response Team Advanced Imaging: Advanced Imaging Deferred because: Stroke not suspected with clinical presentation and exam Metrics: Last Known Well: 08/23/2024 08:00:00 Dispatch Time: 08/23/2024 09:39:05 Initial Response Time: 08/23/2024 09:39:45Symptoms: right hand weakness. Initial patient interaction: 08/23/2024 09:42:29 NIHSS Assessment Completed: 08/23/2024 09:46:28Patient is not a candidate for Thrombolytic. Thrombolytic Medical Decision: 08/23/2024 09:46:29Patient was not deemed candidate for Thrombolytic because of following reasons: other diagnosis suspected there is no new symptom at all. CT Head: Images were unavailable to me at the time of the exam. Radiologist was unavailable to review images. As per the radiologist report: NOT INDICATED Primary Provider Notified of Diagnostic Impression and Management Plan on: 08/23/2024 09:51:52 Spoke With: [phone] Able to Reach 08/23/2024 09:51:52 History of Present Illness:Patient is a 74 year old Male. Inpatient stroke alert was called for symptoms of right hand weakness. This is a 74 y/o man who was admitted yesterday to the hospital after multiple falls beginning August 20. He has had progressive mobility issues over years. He takes rivaroxaban for atrial fibrillation and last took it August 20. In the hospital he has been found to have runs of VT and is COVID positive. The patient feels fine other than the frustration he has with not being able to ambulate and get up from the floor when he falls. RNs called a stroke alert because they noticed that he has an asymmetric smile. The patient informed them that he has always had that smile but as they had not noticed it previously in the day, they wanted to be cautious. He denies headache, neck pain, dizziness, visual changes, speech changes, numbness, tingling, or new weakness. Past Medical History: ?Hypertension ?Atrial Fibrillation ?Coronary Artery Disease Other PMH:? KIANA Medications: Anticoagulant use:??Yes?rivaroxaban last dose August 20 No Antiplatelet use Reviewed EMR for current medications Allergies:? Reviewed Social History: Smoking: Former Family History: There is no family history of premature cerebrovascular disease pertinent to this consultation ROS : 14 Points Review of Systems was performed and was negative except mentioned in HPI. Past Surgical History: There Is No Surgical History Contributory To Today?s Visit Examination: BP(153/70),?Pulse(74),?Blood Glucose(166) 1A: Level of Consciousness - Alert; keenly responsive?+ 0 1B: Ask Month and Age - Both Questions Right?+ 0 1C: Blink Eyes & Squeeze Hands - Performs Both Tasks?+ 0 2: Test Horizontal Extraocular Movements - Normal?+ 0 3: Test Visual Wooten - No Visual Loss?+ 0 4: Test Facial Palsy (Use Grimace if Obtunded) - Minor paralysis (flat nasolabial fold, smile asymmetry)?+ 1 5A: Test Left Arm Motor Drift - No Drift for 10 Seconds?+ 0 5B: Test Right Arm Motor Drift - No Drift for 10 Seconds?+ 0 6A: Test Left Leg Motor Drift - No Drift for 5 Seconds?+ 0 6B: Test Right Leg Motor Drift - No Drift for 5 Seconds?+ 0 7: Test Limb Ataxia (FNF/Heel-Oneil) - No Ataxia?+ 0 8: Test Sensation - Normal; No sensory loss?+ 0 9: Test Language/Aphasia - Normal; No aphasia?+ 0 10: Test Dysarthria - Normal?+ 0 11: Test Extinction/Inattention - No abnormality?+ 0 NIHSS Score:?1 NIHSS Free Text :?The patient is completely cognitively intact. There really isn't a nasolabial fold but there is a slight asymmetry of his smile with slightly less prominence of the LEFT nasolabial fold than the right. He is adamant that this is his normal smile. Pre-Morbid Modified [place] Scale:3 Points = Moderate disability; requiring some help, but able to walk without assistance Spoke with :?[phone] This consult was conducted in real time using interactive audio and video technology. Patient was informed of the technology being used for this visit and agreed to proceed. Patient located in hospital and provider located at home/office setting. Patient is being evaluated for possible acute neurologic impairment and high probability of imminent or life-threatening deterioration. I spent total of 28 minutes providing care to this patient, including time for face to face visit via telemedicine, review of medical records, imaging studies and discussion of findings with providers, the patient and/or family. Dr Charito Hussein [facility] For Inpatient follow-up with [facility] physician please call [facility] at . As we are not an outpatient service for any post hospital discharge needs please contact the hospital for assistance. If you have any questions for the [facility] physicians or need to reconsult for clinical or diagnostic changes please contact us via [facility] at .
--- NOTE | 2024-08-23 11:00 | EVENTNT_ITS ---
Documentation for date of: 08/23/24 Event Note Event Note: At approximately 9:20 AM rapid response was called for patient due to possible new onset right upper extremity weakness. Assessment patient did have a asymmetric facial droop on the left and mild tongue deviation, however patient stated that this is his baseline and has been present since childhood also has bilateral involving weakness and this has been present for the past few days. A new finding was possible right upper limb weakness or 4/5 compared to 5/5 on the left. Subsequently stroke alert was activated. Plan: ? Teleneurology consult stat Plan of care discussed with Attending Dr. Kenney Ramirez MD PGY 1 Disclaimer: This note was dictated by speech recognition. Minor errors in cloth tester quality may be present due to voice recognition software.
--- NOTE | 2024-08-23 12:13 | PD.IMCONS ---
HPI Data of Consult Requesting Physician: Chito Fernandez MD Primary Care Provider: Physician No Primary/Family Consult Narrative History of present illness: This is a 74-year-old male with past medical history of CAD s/p CABG x3, HFrEF 30% s/p pacemaker/AICD, afib on Xarelto, hypertension, COPD, KIANA on CPAP, depression, and anxiety Patient is seen in the emergency room with a history of generalized fatigue weakness recurrent falls Patient usually follows up with Dr. Maurice patient's EKG shows sinus rhythm Patient is on chronic anticoagulation treatment for atrial fibrillation His pacemaker was checked appears to be functioning adequately recently as outpatient No chest pain noted troponin is elevated 3.1 Patient also developed right-sided weakness and was evaluated by neurology Initial CAT scan was negative cc:: cc: Chito Fernandez MD Meds Home Medications and Allergies Home Medications ?Medication ?Instructions ?Recorded ?Confirmed ?Type amiodarone 200 mg tablet 200 mg PO QDAY 08/22/24 08/22/24 History atorvastatin 40 mg tablet 40 mg PO QDAY 08/22/24 08/22/24 History carvedilol 12.5 mg tablet 12.5 mg PO BID 08/22/24 08/22/24 History furosemide 40 mg tablet 40 mg PO BID 08/22/24 08/22/24 History lisinopril 5 mg tablet 5 mg PO QDAY 08/22/24 08/22/24 History rivaroxaban 20 mg tablet (Xarelto) 20 mg PO QDAY 08/22/24 08/22/24 History Allergies Allergy/AdvReac Type Severity Reaction Status Date / Time amoxicillin Allergy Verified 08/22/24 20:33 NSAIDS (Non-Steroidal Allergy Verified 08/22/24 22:59 Anti-Inflamma Penicillins Allergy Verified 08/22/24 20:33 salicylates Allergy Verified 08/22/24 20:33 Exam Vital Signs Temp Pulse Resp BP Pulse Ox O2 Del Method 97 F 67 20 157/89 H 93 L Room Air 08/23/24 12:00 08/23/24 12:00 08/23/24 12:00 08/23/24 12:00 08/23/24 12:00 08/23/24 12:00 Routine HEENT Exam Head: Present normocephalic and atraumatic Eye: Present EOMI and PERRL ENT: Present mucous membranes moist Routine Neck Exam Neck: Present supple and trachea midline Routine Respiratory Exam Respiratory: Present chest non-tender, lungs clear, normal breath sounds and no resp distress Routine Cardiovascular Exam Cardiovascular: Present RRR Routine Abdominal Exam Abdominal: Present soft and normoactive bowel sounds Routine Extremities Exam Extremities: Present full ROM Routine Skin Exam Skin: Present intact, dry and warm Routine Neurological Exam Neurological: Present alert, oriented X3 and CN II-XII intact Routine Psychiatric Exam Psychiatric: Present normal affect and normal thought process Results Labs 08/23/24 05:35 08/23/24 05:35 Labs: Short CBC 08/22/24 08/23/24 Range/Units 20:49 05:35 WBC 12.0 H 11.0 H (3.8-10.6) Thou/mm3 Hgb 13.0 L 13.4 L (13.5-16.0) g/dL Hct 37.1 L 39.6 L (41.0-53.0) % Plt Count 252 246 (140-440) Thou/mm3 BMP 08/22/24 08/23/24 20:49 05:35 Sodium 139 139 Potassium 4.0 4.3 Chloride 104 101 Carbon Dioxide 24.6 23.7 BUN 32 H 30 H Creatinine 1.2 1.2 Glucose 116 H 140 H Calcium 8.9 9.0 Cardiac Enzymes 08/22/24 08/23/24 08/23/24 Range/Units 20:49 01:19 06:30 Total Creatine Kinase 5491 H (34-171) U/L Troponin I 3.678 H* 3.122 H* D 2.365 H* D (0.0-0.045) ng/mL Liver Function 08/22/24 08/23/24 Range/Units 20:49 05:35 Total Bilirubin 1.4 H 1.5 H (0.3-1.2) mg/dL AST 239 H 224 H (0-34) U/L ALT 73 H 80 H (10-49) U/L Alkaline Phosphatase 126 H 132 H (46-116) U/L Albumin 4.0 4.2 (3.4-4.8) gm/dL Assessment and Plan Assessment and plan (1) Atrial fibrillation: Status: Acute (2) Elevated troponin: Status: Acute (3) CVA (cerebral vascular accident): Status: Acute (4) Paroxysmal A-fib: Status: Acute Additional Assessment & Plan Additional Plan: At this time patient's troponin elevation is possibly due to demand ischemia Patient has multiple comorbidities including a possible stroke patient is on DNR status Echo will be recommended Will continue conservative medical management
[2024-08-23] MEDS: ONDANSETRON INJ 2 MG/ML INJ 2 ML 4 MG IVP (13:36)
[2024-08-23] MEDS: MORPHINE SULF INJ 10 MG/ML VIAL 2 MG IVP ×2 (14:00→20:08)
[2024-08-23] MEDS: LEVALBUTEROL RT 0.31 MG/3 ML NEBU INH ×2 (14:24→22:55)
[2024-08-23] MEDS: IPRATROPIUM RT 0.5 MG/ 2.5 ML NEBU INH ×2 (14:24→22:55)
[2024-08-23] MEDS: PANTOPRAZOLE 40 MG TABLET PO (15:12)
[2024-08-23] MEDS: SODIUM CHLORIDE 0.9% 250 ML 250 ML 999 ML IV (15:13)
[2024-08-23 15:40] LABS: Collection Type, Urine Clean Catch
[2024-08-23 15:56] LABS: Bilirubin,Urine Negative (Negative); Blood,Urine 2+ (Negative); Clarity,Urine Clear (Clear/Hazy); Color,Urine Yellow (Lt Yel-Yel); Glucose, Urine Negative (Negative); Ketones,Urine 1+ (Negative); Leukocyte Esterase,Urine Negative (Negative); Nitrite,Urine Negative (Negative); Protein,Urine 2+ (Neg - Trace); RBC,Urine 2 /hpf (0-3); Specific Gravity,Urine 1.038 (1.001-1.035); Squamous Epithelial Cell,Urine < 1 /hpf (0-5); Urobilinogen,Urine Negative mg/dL (0.0-1.0); WBC,Urine 13 /hpf (0-5)
[2024-08-23] MEDS: METOCLOPRAMIDE INJ 5 MG/ML VIAL 2 ML 10 MG IVP (17:34)
--- NOTE | 2024-08-23 18:30 | XR_ITS ---
Examination: Abdomen AP single view Technique: AP portable supine abdomen, single view Exam date and time: August 23, 2024, 1843 hours INDICATIONS: Abdominal distention today. FINDINGS: Air distended stomach Moderate air and stool in the colon Moderate air distended small bowel No free air IMPRESSION: Air distended stomach Mild colonic ileus Mild to moderate small bowel ileus
--- NOTE | 2024-08-23 19:32 | PC.NURSE ---
DR. ESTRADA MADE AWARE OF KUB. WILL TAKE A LOOK AT XRAY FOR POTENTIAL NGT PLACEMENT. MD AWARE PT C/O NAUSEA, BILE LIKE OUTPUT
--- NOTE | 2024-08-23 19:50 | XR_ITS ---
Examination: AP chest single view Technique one AP portable semiupright chest single view Date and time: August 24, 20242036 hours INDICATIONS: Posterior orogastric tube placement FINDINGS: Orogastric tube in the stomach satisfactory position Mildly large cardiac contour with prominent vascular congestion Cardiac there is satisfactory position IMPRESSION: Orogastric tube satisfactory position
[2024-08-23] MEDS: PROMETHAZINE INJ 12.5 MG in SODIUM CHLORIDE 0.9% 50 ML 2.5 MG IV (20:04)
[2024-08-23] MEDS: PANTOPRAZOLE INJ 40 MG VIAL IVP ×2 (21:56→22:22)
[2024-08-23 22:12] LABS: Hematocrit 40.4 % (41.0-53.0); Hemoglobin 13.9 g/dL (13.5-16.0)
[2024-08-24] VITALS (11 sets, daily range): BP systolic 130–160; BP diastolic 56–76; PULSE 67–777; RESP 16–22; TEMP 36–36.5; O2SAT 92–100; BMI 44.7
[2024-08-24] MEDS: MORPHINE SULF INJ 10 MG/ML VIAL 2 MG IVP ×6 (00:20→21:48)
--- NOTE | 2024-08-24 00:44 | PC.NURSE ---
DR. ESTRADA MADE AWARE. PT WITH EXP WHEEZING BILATERALLY. NO C/O SOB. ON 5L NC STARTED AT START OF SHIFT. TO ORDER X1 BREATHING TX
[2024-08-24] MEDS: SODIUM CHLORIDE RT SOL 0.9% 3 ML NEBU INH (01:03)
[2024-08-24] MEDS: LEVALBUTEROL RT 1.25 MG/0.5 ML NEBU INH (01:03)
[2024-08-24] MEDS: IPRATROPIUM RT 0.5 MG/ 2.5 ML NEBU INH ×4 (01:03→22:24)
[2024-08-24] MEDS: LEVALBUTEROL RT 0.31 MG/3 ML NEBU INH ×3 (06:15→22:24)
--- NOTE | 2024-08-24 06:15 | PC.NURSE ---
pt w/ c/o of cotton mouth and dry throat. requesting to have small sips of water. Dr. Karlie knapp with small sips of water.
[2024-08-24 06:43] LABS: Basophils % (Auto) 0 % (0-2.5); Eosinophils % (Auto) 0 % (0-10); Hematocrit 38.2 % (41.0-53.0); Hemoglobin 12.5 g/dL (13.5-16.0); Immature Granulocytes % (Auto) 0 % (0-0); Immature Granulocytes Auto 0.05 Thou/mm3 (0.00-0.00); Lymphocytes # (Auto) 0.5 Thou/mm3 (1.0-4.8); Lymphocytes % (Auto) 3 % (10-50); Mean Corpuscular HGB Conc 32.7 g/dl (31.0-37.0); Mean Corpuscular Hemoglobin 31.8 pg (25.0-35.0); Mean Corpuscular Volume 97 fL (80-100); Monocytes # (Auto) 1.6 Thou/mm3 (0.0-0.8); Monocytes % (Auto) 11 % (0-12); Neutrophils # (Auto) 12.3 Thou/mm3 (1.8-7.7); Neutrophils % (Auto) 85 % (37-80); Nucleated Red Blood Cell % 0 /100 WBC (0); Platelet Count 257 Thou/mm3 (140-440); RDW Standard Deviation 53.9 fL (35.1-43.9); Red Blood Count 3.93 Miln/mm3 (4.50-5.90); White Blood Count 14.4 Thou/mm3 (3.8-10.6)
[2024-08-24 09:15] LABS: Alanine Aminotransferase 69 U/L (10-49); Albumin, Serum 3.9 gm/dL (3.4-4.8); Albumin/Globulin Ratio 1.6 (1.2-2.2); Alkaline Phosphatase 115 U/L (46-116); Anion Gap 10 (7-16); Aspartate Amino Transferase 145 U/L (0-34); BUN/Creatinine Ratio 31 Ratio (12-20); Bilirubin,Total 0.8 mg/dL (0.3-1.2); Blood Urea Nitrogen 37 mg/dL (9-23); Calcium 8.2 mg/dL (8.3-10.6); Calcium (Corrected) 8.3 mg/dL (8.5-10.1); Carbon Dioxide 29.1 mMol/L (20.0-31.0); Chloride 105 mMol/L (98-107); Creatine Kinase 2402 U/L (34-171); Creatinine (Component) 1.2 mg/dL (0.6-1.3); Estimated Creatinine Clearance 78.8 mL/min (>60); Globulin 2.5 gm/dL (2.3-3.5); Glucose 125 mg/dL (74-106); Osmolality,Calculated 296 (275-295); Potassium 4.5 mMol/L (3.4-5.1); Sodium 144 mMol/L (136-145); Total Protein 6.4 gm/dL (5.7-8.2); eGFR > 60 See Note
[2024-08-24] MEDS: PANTOPRAZOLE INJ 40 MG VIAL IVP (09:24)
[2024-08-24] MEDS: DEXAMETHASONE SOD PHOS INJ 10 MG/ML VIAL 6 MG IV (09:24)
[2024-08-24] MEDS: FUROSEMIDE INJ 10 MG/ML 4ML VIAL 40 MG IVP (09:25)
[2024-08-24 09:28] LABS: Magnesium 2.4 mg/dL (1.6-2.6); Phosphorous 4.1 mg/dL (2.4-5.1)
[2024-08-24 09:51] LABS: Glucose Estimated Average 117 mg/dL (80-131); Hemoglobin A1C 5.7 % Hgb (4.8-6.0)
--- NOTE | 2024-08-24 10:06 | PD.RESPRO ---
Documentation for date of: 08/24/24 Subjective Subjective Interval history: Patient was seen and examined at bedside this AM. Overnight patient had NG tube placement for ileus seen on x-ray, approximately 1000 cc of coffee-ground liquid drained. Patient NPO, adequate urine output and mentation is at baseline. Patient endorses improvement of abdominal pain, however still has generalized weakness and malaise. From telemetry review patient remains in A-fib with rates between 70s?80s. CK down trended to 2402 from 5491, HbA1c 5.7%, hemoglobin decreased to 12.5 from 13.9. Will keep patient n.p.o., NGT on low intermittent suction and pantoprazole 40 Mg IV twice daily. Gastroenterology, Dr. Smith consulted and closely following the case Exam Vital Signs Temp Pulse Resp BP Pulse Ox O2 Del Method O2 Flow Rate 97.6 F 83 20 131/57 H 96 Nasal Cannula 3 08/24/24 08:00 08/24/24 09:25 08/24/24 08:00 08/24/24 09:25 08/24/24 08:00 08/24/24 08:00 08/24/24 08:00 Narrative Exam Constitutional Alert, oriented x 3 and comfortable. Elderly male HEENT Vision grossly intact. Patent nares. Trachea midline Respiratory Chest normal on inspection and bilateral polyphonic wheeze in all lung walter -improving Cardiovascular S1 and S2 audible, RRR. No murmurs carotid bruit. No gross JVD. Abdominal Soft, obese and non tender to palpation in all quadrants. BS + Genitourinary No bladder tenderness, no flank pain. Normal to palpation Musculoskeletal Extremities tone within normal limits. No LE edema. Skin Warm, dry and intact. No apparent lesions. Psychiatric Patient has good affect, is cooperative Neurological CN II - XII grossly intact. Extremity motor and sensation grossly intact. 1A: Level of Consciousness - Alert; keenly responsive + 0 1B: Ask Month and Age - Both Questions Right + 0 1C: Blink Eyes & Squeeze Hands - Performs Both Tasks + 0 2: Test Horizontal Extraocular Movements - Normal + 0 3: Test Visual Walter - No Visual Loss + 0 4: Test Facial Palsy (Use Grimace if Obtunded) - Minor paralysis (flat nasolabial fold, smile asymmetry) + 1 5A: Test Left Arm Motor Drift - No Drift for 10 Seconds + 0 5B: Test Right Arm Motor Drift - No Drift for 10 Seconds + 0 6A: Test Left Leg Motor Drift - No Drift for 5 Seconds + 0 6B: Test Right Leg Motor Drift - No Drift for 5 Seconds + 0 7: Test Limb Ataxia (FNF/Heel-Oneil) - No Ataxia + 0 8: Test Sensation - Normal; No sensory loss + 0 9: Test Language/Aphasia - Normal; No aphasia + 0 10: Test Dysarthria - Normal + 0 11: Test Extinction/Inattention - No abnormality + 0 NIHSS Score: 1 NIHSS Free Text : The patient is completely cognitively intact. There really isn't a nasolabial fold but there is a slight asymmetry of his smile with slightly less prominence of the LEFT nasolabial fold than the right. He is adamant that this is his normal smile. Pre-Morbid Modified Harding Scale:3 Points = Moderate disability; requiring some help, but able to walk without assistance Objective Labs 08/24/24 06:00 08/24/24 06:00 Labs: Laboratory Results - last 24 hr 08/23/24 08/23/24 08/24/24 15:26 21:54 06:00 WBC 14.4 H RBC 3.93 L Hgb 13.9 12.5 L Hct 40.4 L 38.2 L MCV 97 MCH 31.8 MCHC 32.7 RDW Std Deviation 53.9 H Plt Count 257 Neut % (Auto) 85 H Lymph % (Auto) 3 L Smith % (Auto) 11 Eos % (Auto) 0 Baso % (Auto) 0 Neut # (Auto) 12.3 H Lymph # (Auto) 0.5 L Smith # (Auto) 1.6 H Eos # (Auto) 0.0 Baso # (Auto) 0.0 Immature Gran # (Auto) 0.05 H Absolute Nucleated RBC 0.00 Immature Gran % 0 Nucleated RBC % 0 Sodium 144 Potassium 4.5 Chloride 105 Carbon Dioxide 29.1 Anion Gap 10 BUN 37 H Creatinine 1.2 Estim Creat Clear Calc 78.8 eGFR > 60 BUN/Creatinine Ratio 31 H Glucose [address] Glu mg/dL 117 Hemoglobin A1c 5.7 Calculated Osmolality 296 H Calcium 8.2 L Corrected Calcium 8.3 L Phosphorus 4.1 Magnesium 2.4 Total Bilirubin 0.8 D AST 145 H ALT 69 H Alkaline Phosphatase 115 Total Creatine Kinase 2402 H D Total Protein 6.4 Albumin 3.9 Globulin 2.5 Albumin/Globulin Ratio 1.6 Ur Collection Type Clean Catch Urine Color Yellow Urine Clarity Clear Urine pH 6.0 Ur Specific [place] 1.038 H Urine Protein 2+ A Urine Glucose (UA) Negative Urine Ketones 1+ A Urine Blood 2+ A Urine Nitrite Negative Urine Bilirubin Negative Urine Urobilinogen (Auto) Negative Ur Leukocyte Esterase Negative Urine RBC 2 Urine WBC 13 H Ur Squamous Epith Cells < 1 Urine Bacteria None Quality Measures Quality Measures none Advance care planning discussed with:: patient Assessment & Plan Assessment Current Active Medications: Generic Name Dose Route Start Last Admin Trade Name Freq PRN Reason Stop Dose Admin Acetaminophen 650 mg 08/23/24 00:27 Acetaminophen 325 Mg Tablet PO 09/22/24 00:26 Q6H PRN Fever >100.4 or Pain 1-3 Hydrocodone Bitart/Acetaminophen 1 tab 08/23/24 14:33 Hydrocodone/Apap 5/325 Tablet PO 08/28/24 14:32 Q6HR PRN PAIN SCALE 4-10(Mod-Sev Amiodarone HCl 200 mg 08/23/24 09:00 08/24/24 08:49 Amiodarone Hcl 200 Mg Tablet PO 09/22/24 08:59 Not Given QDAY KARMEN Atorvastatin Calcium 40 mg 08/23/24 09:00 08/23/24 09:59 Atorvastatin Calcium 20 Mg Tablet PO 09/22/24 08:59 40 mg QDAY KARMEN Administration Carvedilol 12.5 mg 08/23/24 09:00 08/24/24 08:49 Carvedilol 12.5 Mg Tablet PO 09/22/24 08:59 Not Given BID KARMEN Furosemide 40 mg 08/24/24 09:00 08/24/24 09:25 Furosemide Inj 10 Mg/Ml 4ml Vial IVP 09/23/24 08:59 40 mg QDAY KARMEN Administration Gabapentin 200 mg 08/23/24 00:50 08/24/24 08:50 Gabapentin 100 Mg Capsule PO 09/22/24 00:49 Not Given BID KARMEN Remdesivir 100 mg/ Sodium 100 mls @ 100 mls/hr 08/24/24 09:00 Chloride IV 08/25/24 09:59 Q24H NR Protocol Ipratropium [place] 0.5 mg 08/23/24 15:00 08/24/24 06:15 Ipratropium Rt 0.5 Mg/ 2.5 Ml Nebu INH 09/22/24 14:59 0.5 mg Q8HRRT KARMEN Administration Levalbuterol HCl 0.31 mg 08/23/24 15:00 08/24/24 06:15 Levalbuterol Rt 0.31 Mg/3 Ml Nebu INH 09/22/24 14:59 0.31 mg Q8HRRT KARMEN Administration Lisinopril 5 mg 08/23/24 09:00 08/24/24 08:50 Lisinopril 2.5 Mg Tablet PO 09/22/24 08:59 Not Given QDAY KARMEN Morphine Sulfate 2 mg 08/23/24 11:39 08/24/24 09:23 Morphine Sulf Inj 10 Mg/Ml Vial IVP 08/28/24 11:38 2 mg Q4HR PRN Administration BREAKTHROUGH PAIN Ondansetron HCl 4 mg 08/23/24 00:27 08/23/24 13:36 Ondansetron Inj 2 Mg/Ml Inj 2 Ml IVP 09/22/24 00:26 4 mg Q6H PRN Administration NAUSEA OR VOMITING Protocol Pantoprazole Sodium 40 mg 08/24/24 21:00 Pantoprazole 40 Mg Tablet PO 09/23/24 20:59 BID KARMEN Protocol Rivaroxaban 20 mg 08/23/24 17:30 08/23/24 18:37 Rivaroxaban 10 Mg Tablet PO 09/22/24 17:29 Not Given WSUPPER KARMEN Sodium Chloride 3 ml 08/24/24 00:44 08/24/24 01:03 Sodium Chloride Rt Jacinta 0.9% 3 Ml Nebu INH 09/23/24 00:43 3 ml PRN PRN Administration SOLN Plan 74-year-old male with past medical history of CAD s/p CABG x3, HFrEF 30% s/p [employer]D 07/06/24, afib on Xarelto, primary hypertension, COPD, KIANA on CPAP, depression, and anxiety who presented to the ED on 08/22/2024 with symptoms of generalized weakness and frequent falls for 3 days, admitted for COVID and NSTEMI. #GI bleed, coffee-ground emesis observed via OG tube Patient had NG tube placed last night due to ileus seen on KUB x-ray. Had 1000 cc of coffee-ground drainage. Plan: ? Keep n.p.o. ? NG tube on low intermittent suction ? Continue pantoprazole 40 Mg IV twice daily ? Gastroenterology, Dr. Smith consulted and closely following the case. Appreciate recommendations COVID Pneumonia Transaminitis, r-factor 1.4, likely cholestatic COVID-positive, blood culture MBG x 1 day and sputum culture 1+ GPC preliminary. Plan: ? Continue to monitor CMP for LFTs - Remdesivir 100mg IV x 2 days [last dose on 08/25] - Switched dexamethasone to 6 Mg IV daily ? Continue levalbuterol Q8 hourly and ipratropium Q8 hourly - Continue chest physiotherapy every 8 hourly History of tobacco use ?COPD Patient has chronic productive cough for past 2 years. And is an ex-smoker with [id number] history, quit a few years ago. According to him he had formal PFTs done as an outpatient through his PCP and states that the results were normal. We will request records from his PCP office. Currently high suspicion of COPD given patient history and symptoms, will treat as such. Plan: ? Continue nebs as above ? Peak flow ordered Rhabdomyolysis secondary to fall DDx: Rhabdomyolysis, medication side effect, heat stress Patient had history of frequent falls during the past week and was immobilized for greater than 8 hours yesterday before fire service came to help him. Denied dark urine Urinalysis showed 2+ blood, 1+ ketone, 2+ protein and 2 RBC. CK elevated at 5491 ---> 2402 Orthostatic vitals were negative Plan: ? Physical therapy assessment ordered NSTEMI type II, likely secondary to demand ischemia Patient currently denies any chest pain/pressure, palpitations. Troponin downtrending from 3.122 - 2.365. EKG on admission did not show any ST changes. Etiology likely type II from demand ischemia secondary to CHF and COVID pneumonia. Plan: ? No need to further trend troponin ? TTE pending ? Cardiology, Dr. Lin consulted. Appreciate recommendation Paroxysmal afib?rate controlled and on anticoagulation Initial EKG in sinus rhythm however patient apparently went into afib while in ED, and was given a push of diltiazem, subsequently has been in sinus rhythm. Will resume home medications. From telemetry reviewed patient was on A-fib overnight rate 70s/80s. A few rounds of SVT and V. tach Plan: ? Continue potline monitor ? Continue rhythm control with home medication amiodarone 200 Mg p.o. daily ? Continue rate control with carvedilol 12.5 Mg p.o. twice daily ? Continue anticoagulation with home medication rivaroxaban 20 Mg p.o. at bedtime ? Will maintain potassium greater than 4 and magnesium greater than 2 at all times without any further arrhythmias Chronic systolic congestive heart failure with reduced EF [30%] s/p [employer]-D 07/06/2024 CAD s/p CABG Patient reports EF of about 30%, no echo seen on file and follows with Dr. Mcdonald. He had his first [employer]-D first placed in 2005 shortly after the CABG , last battery change, 07/06/2024. BNP on admission 493. Home diuretic furosemide 40 Mg p.o. twice daily NYHA stage III class C. Patient uses a motorized walker at baseline Plan: - Strict input/output charting - Daily weight recording - Diet: 2g sodium restriction - Fluid restriction to 1.5L/day ? Decreased furosemide to 20 Mg IV daily due to possibility of GI bleed - TTE pending ? Cardiology, Dr. Lin consulted. Appreciate recommendation Sciatic lower back pain - Continue gabapentin 200 mg BID due to complaint of back pain ? Lidocaine patch ordered for back pain Primary hypertension Hyperlipidemia - Continue home lisinopril 5 mg qday ? Statin on hold due to transaminitis History of KIANA -Continue CPAP at night Stroke Ruled out Possible right sided weakness, stroke alert was activated and teleneurology recommended no further workup NIHSS 1. asymmetric facial droop since which is chronic Health maintenance: Disposition: IV medication for COVID. Pending physical therapy assessment. Pending GI consult Diet: N.p.o. Lines: pIVs GI Prophylaxis: Pantoprazole Thrombo Prophylaxis: On hold due to GI bleed for investigation Code status: DNR Plan of care discussed with Attending Dr. Kenney Ramirez MD PGY 1 Disclaimer: This note was dictated by speech recognition. Minor errors in swimming pool maintenance may be present due to voice recognition software. Attending Provider Attestation/Addendum I have discussed and was present for the essential components of the history, physical examination, diagnosis, and treatment plan with the resident. I agree with the patient's care as documented by the resident and amended herein by me. John Moulton DO. Patient seen and evaluated this AM. Vital signs stable, patient afebrile overnight, patient on NC, 3 L, SpO2 96% at time of bedside visit. I/O900/2500. Significant labs include a WBC 14, hemoglobin 13, corrected calcium 8.3, T. bili normal, AST 145, ALT 69 and a downtrending CK to 2402. Overnight, patient suspected of having GI bleed, coffee-ground emesis observed with OG tube suction, placed due to distended abdomen. Gastroenterology consulted for EGD, cardiology also consulted, echo recommended. Will also continue dexamethasone, remdesivir at this time continue to monitor closely. Although this document has been carefully reviewed, there may still be some phonetic and other typographical errors. These errors are purely grammatical due to imperfections in the software program and should not be construed in any way to compromise the substance of the patient's medical care during this visit.
[2024-08-24] MEDS: REMDESIVIR INJ 100 MG in SODIUM CHLORIDE 0.9% 100 ML IV (10:16)
--- NOTE | 2024-08-24 10:17 | PD.IMCONS ---
HPI Data of Consult Requesting Physician: Chito Fernandez MD Primary Care Provider: Physician No Primary/Family Consult Narrative Reason for consult: Coffee-ground emesis History of present illness: 74 years old male I been asked to evaluate for coffee-ground lavage via the NGT Patient was admitted for frequent falls shortness of breath and weakness Current hemoglobin hematocrit dropped to 12.5 and 38.2 from baseline 13.9 and 38.2 Patient does take Xarelto Patient has a history of permanent cardiac pacemaker essential hypertension coronary artery disease and congestive heart failure cc:: cc: Chito Fernandez MD Review of Systems Review of Systems Systems Reviewed: All systems reviewed, normal except as documented Past Medical History Surgical History OTHER SURGICAL HX: As in the history of present illness Meds Home Medications and Allergies Home Medications ?Medication ?Instructions ?Recorded ?Confirmed ?Type amiodarone 200 mg tablet 200 mg PO QDAY 08/22/24 08/22/24 History atorvastatin 40 mg tablet 40 mg PO QDAY 08/22/24 08/22/24 History carvedilol 12.5 mg tablet 12.5 mg PO BID 08/22/24 08/22/24 History furosemide 40 mg tablet 40 mg PO BID 08/22/24 08/22/24 History lisinopril 5 mg tablet 5 mg PO QDAY 08/22/24 08/22/24 History rivaroxaban 20 mg tablet (Xarelto) 20 mg PO QDAY 08/22/24 08/22/24 History Allergies Allergy/AdvReac Type Severity Reaction Status Date / Time amoxicillin Allergy Verified 08/22/24 20:33 NSAIDS (Non-Steroidal Allergy Verified 08/22/24 22:59 Anti-Inflamma Penicillins Allergy Verified 08/22/24 20:33 salicylates Allergy Verified 08/22/24 20:33 Exam Vital Signs Temp Pulse Resp BP Pulse Ox O2 Del Method O2 Flow Rate 97.6 F 83 20 131/57 H 96 Nasal Cannula 3 08/24/24 08:00 08/24/24 09:25 08/24/24 08:00 08/24/24 09:25 08/24/24 08:00 08/24/24 08:00 08/24/24 08:00 Constitutional Comments: Chronically ill-appearing male patient Routine Respiratory Exam Comments: Scattered rhonchi Routine Abdominal Exam Comments: Soft nontender Results Labs 08/24/24 06:00 08/24/24 06:00 Labs: Short CBC 08/23/24 08/24/24 Range/Units 21:54 06:00 WBC 14.4 H (3.8-10.6) Thou/mm3 Hgb 13.9 12.5 L (13.5-16.0) g/dL Hct 40.4 L 38.2 L (41.0-53.0) % Plt Count 257 (140-440) Thou/mm3 BMP 08/24/24 06:00 Sodium 144 Potassium 4.5 Chloride 105 Carbon Dioxide 29.1 BUN 37 H Creatinine 1.2 Glucose 125 H Calcium 8.2 L Cardiac Enzymes 08/24/24 Range/Units 06:00 Total Creatine Kinase 2402 H D (34-171) U/L Liver Function 08/24/24 Range/Units 06:00 Total Bilirubin 0.8 D (0.3-1.2) mg/dL AST 145 H (0-34) U/L ALT 69 H (10-49) U/L Alkaline Phosphatase 115 (46-116) U/L Albumin 3.9 (3.4-4.8) gm/dL Urine 08/23/24 Range/Units 15:26 Urine Color Yellow (Lt Yel-Yel) Urine Clarity Clear (Clear/Hazy) Urine pH 6.0 (5.0-7.0) Ur Specific [place] 1.038 H (1.001-1.035) Urine Protein 2+ A (Neg - Trace) Urine Glucose (UA) Negative (Negative) Assessment and Plan Additional Assessment & Plan Additional Plan: # Coffee-ground via the NGT in a patient taking Xarelto Plan Consent obtained for fiberoptic esophagogastroduodenoscopy with possible biopsy possible therapeutic intervention under intravenous moderate sedation Other medical problems include Permanent cardiac pacemaker Essential hypertension Coronary artery disease Congestive heart failure Thank you very much for the opportunity to participate in care of this patient
--- NOTE | 2024-08-24 11:46 | PD.IMPROG ---
Documentation for date of: 08/24/24 Subjective Subjective Interval history: Continue treatment for COVID Elevated troponin noted Medical management recommended Exam Vital Signs Temp Pulse Resp BP Pulse Ox O2 Del Method O2 Flow Rate 97.6 F 83 20 131/57 H 96 Nasal Cannula 3 08/24/24 08:00 08/24/24 09:25 08/24/24 08:00 08/24/24 09:25 08/24/24 08:00 08/24/24 08:00 08/24/24 08:00 Routine HEENT Exam Head: Present normocephalic and atraumatic Eye: Present EOMI and PERRL ENT: Present mucous membranes moist Routine Neck Exam Neck: Present supple and trachea midline Routine Respiratory Exam Respiratory: Present chest non-tender, lungs clear, normal breath sounds and no resp distress Routine Cardiovascular Exam Cardiovascular: Present RRR Routine Abdominal Exam Abdominal: Present soft and normoactive bowel sounds Routine Extremities Exam Extremities: Present full ROM Routine Skin Exam Skin: Present intact, dry and warm Routine Neurological Exam Neurological: Present alert, oriented X3 and CN II-XII intact Routine Psychiatric Exam Psychiatric: Present normal affect and normal thought process Objective Labs 08/24/24 06:00 08/24/24 06:00 Labs: Laboratory Results - last 24 hr 08/23/24 08/23/24 08/24/24 15:26 21:54 06:00 WBC 14.4 H RBC 3.93 L Hgb 13.9 12.5 L Hct 40.4 L 38.2 L MCV 97 MCH 31.8 MCHC 32.7 RDW Std Deviation 53.9 H Plt Count 257 Neut % (Auto) 85 H Lymph % (Auto) 3 L [place] % (Auto) 11 Eos % (Auto) 0 Baso % (Auto) 0 Neut # (Auto) 12.3 H Lymph # (Auto) 0.5 L [place] # (Auto) 1.6 H Eos # (Auto) 0.0 Baso # (Auto) 0.0 Immature Gran # (Auto) 0.05 H Absolute Nucleated RBC 0.00 Immature Gran % 0 Nucleated RBC % 0 Sodium 144 Potassium 4.5 Chloride 105 Carbon Dioxide 29.1 Anion Gap 10 BUN 37 H Creatinine 1.2 Estim Creat Clear Calc 78.8 eGFR > 60 BUN/Creatinine Ratio 31 H Glucose [address] Glu mg/dL 117 Hemoglobin A1c 5.7 Calculated Osmolality 296 H Calcium 8.2 L Corrected Calcium 8.3 L Phosphorus 4.1 Magnesium 2.4 Total Bilirubin 0.8 D AST 145 H ALT 69 H Alkaline Phosphatase 115 Total Creatine Kinase 2402 H D Total Protein 6.4 Albumin 3.9 Globulin 2.5 Albumin/Globulin Ratio 1.6 Ur Collection Type Clean Catch Urine Color Yellow Urine Clarity Clear Urine pH 6.0 Ur Specific [place] 1.038 H Urine Protein 2+ A Urine Glucose (UA) Negative Urine Ketones 1+ A Urine Blood 2+ A Urine Nitrite Negative Urine Bilirubin Negative Urine Urobilinogen (Auto) Negative Ur Leukocyte Esterase Negative Urine RBC 2 Urine WBC 13 H Ur Squamous Epith Cells < 1 Urine Bacteria None Assessment & Plan A&P Narrative Continue treatment for COVID Patient has multiple comorbidities including a possible stroke patient is on DNR status Echo will be recommended Will continue conservative medical management Time Spent With Patient Time: Total time spent is greater than 50% in coordination of care (as documented) at patient's floor/unit and/or counseling patient:
[2024-08-24] MEDS: LIDOCAINE 5% 1 PATCH TOP (13:43)
--- NOTE | 2024-08-24 16:33 | PC.SS ---
Rounding note: Being treated for COVID, GI bleed now found. Dr. Smith consulted and may perform endoscopy. May discharge home in 1-2 days.
[2024-08-25] VITALS (17 sets, daily range): BP systolic 127–170; BP diastolic 53–77; PULSE 60–94; RESP 15–20; TEMP 36.2–36.6; O2SAT 91–99; BMI 43.7
[2024-08-25] MEDS: MORPHINE SULF INJ 10 MG/ML VIAL 2 MG IVP ×5 (01:47→22:18)
[2024-08-25 05:51] LABS: Basophils % (Auto) 0 % (0-2.5); Eosinophils % (Auto) 0 % (0-10); Hematocrit 39.4 % (41.0-53.0); Hemoglobin 12.8 g/dL (13.5-16.0); Immature Granulocytes % (Auto) 0 % (0-0); Immature Granulocytes Auto 0.05 Thou/mm3 (0.00-0.00); Lymphocytes # (Auto) 0.4 Thou/mm3 (1.0-4.8); Lymphocytes % (Auto) 3 % (10-50); Mean Corpuscular HGB Conc 32.5 g/dl (31.0-37.0); Mean Corpuscular Hemoglobin 32.2 pg (25.0-35.0); Mean Corpuscular Volume 99 fL (80-100); Monocytes # (Auto) 1.2 Thou/mm3 (0.0-0.8); Monocytes % (Auto) 9 % (0-12); Neutrophils # (Auto) 11.8 Thou/mm3 (1.8-7.7); Neutrophils % (Auto) 88 % (37-80); Nucleated Red Blood Cell % 0 /100 WBC (0); Platelet Count 269 Thou/mm3 (140-440); RDW Standard Deviation 53.2 fL (35.1-43.9); Red Blood Count 3.98 Miln/mm3 (4.50-5.90); White Blood Count 13.4 Thou/mm3 (3.8-10.6)
[2024-08-25 06:24] LABS: Alanine Aminotransferase 68 U/L (10-49); Albumin, Serum 3.9 gm/dL (3.4-4.8); Albumin/Globulin Ratio 1.4 (1.2-2.2); Alkaline Phosphatase 109 U/L (46-116); Anion Gap 10 (7-16); Aspartate Amino Transferase 111 U/L (0-34); BUN/Creatinine Ratio 32 Ratio (12-20); Bilirubin,Total 0.8 mg/dL (0.3-1.2); Blood Urea Nitrogen 38 mg/dL (9-23); Calcium 9.4 mg/dL (8.3-10.6); Calcium (Corrected) 9.5 mg/dL (8.5-10.1); Carbon Dioxide 30.4 mMol/L (20.0-31.0); Chloride 102 mMol/L (98-107); Creatinine (Component) 1.2 mg/dL (0.6-1.3); Estimated Creatinine Clearance 77.8 mL/min (>60); Globulin 2.8 gm/dL (2.3-3.5); Glucose 123 mg/dL (74-106); Magnesium 2.8 mg/dL (1.6-2.6); Osmolality,Calculated 293 (275-295); Phosphorous 3.8 mg/dL (2.4-5.1); Potassium 4.2 mMol/L (3.4-5.1); Sodium 142 mMol/L (136-145); Total Protein 6.7 gm/dL (5.7-8.2); eGFR > 60 See Note
[2024-08-25] MEDS: IPRATROPIUM RT 0.5 MG/ 2.5 ML NEBU INH ×3 (06:44→22:45)
[2024-08-25] MEDS: LEVALBUTEROL RT 0.31 MG/3 ML NEBU INH ×3 (06:44→22:45)
--- NOTE | 2024-08-25 07:48 | PD.IMPROG ---
Documentation for date of: 08/25/24 Subjective Subjective Interval history: pt comfortable Exam Vital Signs Temp Pulse Resp BP Pulse Ox O2 Del Method O2 Flow Rate 97.1 F 75 18 155/77 H 99 Nasal Cannula 2 08/25/24 04:00 08/25/24 06:48 08/25/24 06:48 08/25/24 04:00 08/25/24 06:48 08/25/24 04:00 08/25/24 06:48 Routine HEENT Exam Head: Present normocephalic and atraumatic Eye: Present EOMI and PERRL ENT: Present mucous membranes moist Routine Neck Exam Neck: Present supple and trachea midline Routine Respiratory Exam Respiratory: Present chest non-tender, lungs clear, normal breath sounds and no resp distress Routine Cardiovascular Exam Cardiovascular: Present RRR Routine Abdominal Exam Abdominal: Present soft and normoactive bowel sounds Routine Extremities Exam Extremities: Present full ROM Routine Skin Exam Skin: Present intact, dry and warm Routine Neurological Exam Neurological: Present alert, oriented X3 and CN II-XII intact Routine Psychiatric Exam Psychiatric: Present normal affect and normal thought process Objective Labs 08/25/24 04:30 08/25/24 04:30 Labs: Laboratory Results - last 24 hr 08/24/24 08/25/24 06:00 04:30 WBC 13.4 H RBC 3.98 L Hgb 12.8 L Hct 39.4 L MCV 99 MCH 32.2 MCHC 32.5 RDW Std Deviation 53.2 H Plt Count 269 Neut % (Auto) 88 H Lymph % (Auto) 3 L [place] % (Auto) 9 Eos % (Auto) 0 Baso % (Auto) 0 Neut # (Auto) 11.8 H Lymph # (Auto) 0.4 L [place] # (Auto) 1.2 H Eos # (Auto) 0.0 Baso # (Auto) 0.0 Immature Gran # (Auto) 0.05 H Absolute Nucleated RBC 0.00 Immature Gran % 0 Nucleated RBC % 0 Sodium 144 142 Potassium 4.5 4.2 Chloride 105 102 Carbon Dioxide 29.1 30.4 Anion Gap 10 10 BUN 37 H 38 H Creatinine 1.2 1.2 Estim Creat Clear Calc 78.8 77.8 eGFR > 60 > 60 BUN/Creatinine Ratio 31 H 32 H Glucose [address] Glu mg/dL 117 Hemoglobin A1c 5.7 Calculated Osmolality 296 H 293 Calcium 8.2 L 9.4 Corrected Calcium 8.3 L 9.5 Phosphorus 4.1 3.8 Magnesium 2.4 2.8 H Total Bilirubin 0.8 D 0.8 AST 145 H 111 H ALT 69 H 68 H Alkaline Phosphatase 115 109 Total Creatine Kinase 2402 H D Total Protein 6.4 6.7 Albumin 3.9 3.9 Globulin 2.5 2.8 Albumin/Globulin Ratio 1.6 1.4 Assessment & Plan A&P Narrative w/u for GI bleed Plan Time Spent With Patient Time: Total time spent is greater than 50% in coordination of care (as documented) at patient's floor/unit and/or counseling patient:
[2024-08-25] MEDS: FUROSEMIDE INJ 10 MG/ML 4ML VIAL 40 MG IVP (08:08)
[2024-08-25] MEDS: REMDESIVIR INJ 100 MG in SODIUM CHLORIDE 0.9% 100 ML IV (09:32)
--- NOTE | 2024-08-25 09:38 | ESPR_ITS ---
<Statement entered by Merle Matias MD - 08/25/24 22:33> Patient was seen and examined at bedside. Echocardiogram was done showed ejection fraction of 20%. Driver Operator was consulted he recommended to continue medical treatment at this time patient is in goal-directed medical therapy. Patient has A-fib however it is rate controlled and is currently on Lasix 40 mg IV daily with strict in and out. Patient will undergo cardiac catheterization by Dr. Lin today. - Patient's plan and care discussed with my attending, Dr. Macho Matias MD Internal Medicine PGY-2 Documentation for date of: 08/25/24 Subjective Subjective Interval history: Patient was seen and examined at bedside this AM. No events overnight Patient NPO, adequate urine output and mentation is at baseline. Patient endorses improvement of abdominal pain,generalized weakness and malaise. Transthoracic echocardiogram completed on 08/23/2024 findings include: LV appears to be normal in size. Estimated EF 20%. Global ventricular systolic function is severely reduced. Mild to moderate From telemetry review patient remains in A-fib with rates between 70s?80s. Currently on diuresis with Lasix 40 Mg IV daily and had a fluid balance of -2604 cc in past 24 hours. Hemoglobin stable at 12.8. Will keep patient n.p.o., NGT on low intermittent suction and pantoprazole 40 Mg IV twice daily. Currently pending EGD which will be done sometime today. Gastroenterology, Dr. Smith consulted, appreciate recommendations. Exam Vital Signs Temp Pulse Resp BP Pulse Ox O2 Del Method O2 Flow Rate 97.8 F 68 19 127/58 L 95 Nasal Cannula 1 08/25/24 08:00 08/25/24 08:08 08/25/24 08:00 08/25/24 08:08 08/25/24 08:00 08/25/24 08:00 08/25/24 08:00 Narrative Exam Constitutional Alert, oriented x 3 and comfortable. Elderly male HEENT Vision grossly intact. Patent nares. Trachea midline Respiratory Chest normal on inspection and bilateral polyphonic wheeze in all lung walter - improving Cardiovascular S1 and S2 audible, RRR. No murmurs carotid bruit. No gross JVD. Abdominal Soft, obese and non tender to palpation in all quadrants. BS + Genitourinary No bladder tenderness, no flank pain. Normal to palpation Musculoskeletal Extremities tone within normal limits. Trace lower extremity edema up to knees bilaterally Skin Warm, dry and intact. No apparent lesions. Psychiatric Patient has good affect, is cooperative Neurological CN II - XII grossly intact. Extremity motor and sensation grossly intact. 1A: Level of Consciousness - Alert; keenly responsive + 0 1B: Ask Month and Age - Both Questions Right + 0 1C: Blink Eyes & Squeeze Hands - Performs Both Tasks + 0 2: Test Horizontal Extraocular Movements - Normal + 0 3: Test Visual Walter - No Visual Loss + 0 4: Test Facial Palsy (Use Grimace if Obtunded) - Minor paralysis (flat nasolabial fold, smile asymmetry) + 1 5A: Test Left Arm Motor Drift - No Drift for 10 Seconds + 0 5B: Test Right Arm Motor Drift - No Drift for 10 Seconds + 0 6A: Test Left Leg Motor Drift - No Drift for 5 Seconds + 0 6B: Test Right Leg Motor Drift - No Drift for 5 Seconds + 0 7: Test Limb Ataxia (FNF/Heel-Oneil) - No Ataxia + 0 8: Test Sensation - Normal; No sensory loss + 0 9: Test Language/Aphasia - Normal; No aphasia + 0 10: Test Dysarthria - Normal + 0 11: Test Extinction/Inattention - No abnormality + 0 NIHSS Score: 1 NIHSS Free Text : The patient is completely cognitively intact. There really isn't a nasolabial fold but there is a slight asymmetry of his smile with slightly less prominence of the LEFT nasolabial fold than the right. He is adamant that this is his normal smile. Pre-Morbid Modified Tulio Scale:3 Points = Moderate disability; requiring some help, but able to walk without assistance Objective Labs 08/26/24 04:27 08/26/24 04:27 Labs: Laboratory Results - last 24 hr 08/24/24 08/25/24 06:00 04:30 WBC 13.4 H RBC 3.98 L Hgb 12.8 L Hct 39.4 L MCV 99 MCH 32.2 MCHC 32.5 RDW Std Deviation 53.2 H Plt Count 269 Neut % (Auto) 88 H Lymph % (Auto) 3 L [place] % (Auto) 9 Eos % (Auto) 0 Baso % (Auto) 0 Neut # (Auto) 11.8 H Lymph # (Auto) 0.4 L [place] # (Auto) 1.2 H Eos # (Auto) 0.0 Baso # (Auto) 0.0 Immature Gran # (Auto) 0.05 H Absolute Nucleated RBC 0.00 Immature Gran % 0 Nucleated RBC % 0 Sodium 142 Potassium 4.2 Chloride 102 Carbon Dioxide 30.4 Anion Gap 10 BUN 38 H Creatinine 1.2 Estim Creat Clear Calc 77.8 eGFR > 60 BUN/Creatinine Ratio 32 H Glucose [address] Glu mg/dL 117 Hemoglobin A1c 5.7 Calculated Osmolality 293 Calcium 9.4 Corrected Calcium 9.5 Phosphorus 3.8 Magnesium 2.8 H Total Bilirubin 0.8 AST 111 H ALT 68 H Alkaline Phosphatase 109 Total Protein 6.7 Albumin 3.9 Globulin 2.8 Albumin/Globulin Ratio 1.4 Quality Measures Quality Measures none Advance care planning discussed with:: patient Assessment & Plan Assessment Current Active Medications: Generic Name Dose Route Start Last Admin Trade Name Freq PRN Reason Stop Dose Admin Acetaminophen 650 mg 08/23/24 00:27 Acetaminophen 325 Mg Tablet PO 09/22/24 00:26 Q6H PRN Fever >100.4 or Pain 1-3 Hydrocodone Bitart/Acetaminophen 1 tab 08/23/24 14:33 Hydrocodone/Apap 5/325 Tablet PO 08/28/24 14:32 Q6HR PRN PAIN SCALE 4-10(Mod-Sev Amiodarone HCl 200 mg 08/23/24 09:00 08/24/24 08:49 Amiodarone Hcl 200 Mg Tablet PO 09/22/24 08:59 Not Given QDAY KARMEN Atorvastatin Calcium 40 mg 08/23/24 09:00 08/23/24 09:59 Atorvastatin Calcium 20 Mg Tablet PO 09/22/24 08:59 40 mg QDAY KARMEN Administration Carvedilol 12.5 mg 08/23/24 09:00 08/24/24 21:52 Carvedilol 12.5 Mg Tablet PO 09/22/24 08:59 Not Given BID KARMEN Furosemide 40 mg 08/25/24 09:00 08/25/24 08:08 Furosemide Inj 10 Mg/Ml 4ml Vial IVP 09/24/24 08:59 40 mg QDAY KARMEN Administration Gabapentin 200 mg 08/23/24 00:50 08/24/24 21:52 Gabapentin 100 Mg Capsule PO 09/22/24 00:49 Not Given BID KARMEN Remdesivir 100 mg/ Sodium 100 mls @ 100 mls/hr 08/24/24 09:00 08/25/24 09:32 Chloride IV 08/25/24 09:59 100 mls/hr Q24H NR Administration Protocol Ipratropium [place] 0.5 mg 08/23/24 15:00 08/25/24 06:44 Ipratropium Rt 0.5 Mg/ 2.5 Ml Nebu INH 09/22/24 14:59 0.5 mg Q8HRRT KARMEN Administration Levalbuterol HCl 0.31 mg 08/23/24 15:00 08/25/24 06:44 Levalbuterol Rt 0.31 Mg/3 Ml Nebu INH 09/22/24 14:59 0.31 mg Q8HRRT KARMEN Administration Lisinopril 5 mg 08/23/24 09:00 08/24/24 08:50 Lisinopril 2.5 Mg Tablet PO 09/22/24 08:59 Not Given QDAY KARMEN Morphine Sulfate 2 mg 08/23/24 11:39 08/25/24 08:07 Morphine Sulf Inj 10 Mg/Ml Vial IVP 08/28/24 11:38 2 mg Q4HR PRN Administration BREAKTHROUGH PAIN Ondansetron HCl 4 mg 08/23/24 00:27 08/23/24 13:36 Ondansetron Inj 2 Mg/Ml Inj 2 Ml IVP 09/22/24 00:26 4 mg Q6H PRN Administration NAUSEA OR VOMITING Protocol Pantoprazole Sodium 40 mg 08/24/24 21:00 08/24/24 21:53 Pantoprazole 40 Mg Tablet PO 09/23/24 20:59 Not Given BID KARMEN Protocol Rivaroxaban 20 mg 08/23/24 17:30 08/23/24 18:37 Rivaroxaban 10 Mg Tablet PO 09/22/24 17:29 Not Given WSUPPER KARMEN Sennosides 1 tab 08/25/24 07:57 Senna Tablet PO 09/24/24 07:56 QDAY PRN CONSTIPATION Protocol Sodium Chloride 3 ml 08/24/24 00:44 08/24/24 01:03 Sodium Chloride Rt Jacinta 0.9% 3 Ml Nebu INH 09/23/24 00:43 3 ml PRN PRN Administration SOLN Plan 74-year-old male with past medical history of CAD s/p CABG x3, HFrEF 30% s/p CHILD CARE GIVER?D 07/06/24, afib on Xarelto, primary hypertension, COPD, KIANA on CPAP, depression, and anxiety who presented to the ED on 08/22/2024 with symptoms of generalized weakness and frequent falls for 3 days, admitted for COVID and NSTEMI. GI bleed, coffee-ground emesis observed via NG tube Coffee-ground emesis noted on nasogastric lavage Plan: ? Keep n.p.o. ? NG tube on low intermittent suction ? Continue pantoprazole 40 Mg IV twice daily ? Scheduled for EGD today ? Gastroenterology, Dr. Smith consulted and closely following the case. Appreciate recommendations Chronic systolic congestive heart failure with reduced EF [20%] s/p CHILD CARE GIVER-D 07/06/2024 CAD s/p CABG Patient reports EF of about 30%, no echo seen on file and follows with Dr. Mcdonald. He had his first CHILD CARE GIVER-D first placed in 2005 shortly after the CABG , last battery change, 07/06/2024. BNP on admission 493. Home diuretic furosemide 40 Mg p.o. twice daily NYHA stage III class C. Patient uses a motorized walker at baseline Transthoracic echocardiogram completed on 08/23/2024 findings include: LV appears to be normal in size. Estimated EF 20%. Global ventricular systolic function is severely reduced. Mild to moderate Plan: - Strict input/output charting - Daily weight recording - Diet: 2g sodium restriction - Fluid restriction to 1.5L/day ? Continue diuresis with Lasix 40 Mg IV daily ? Continue carvedilol 12.5 Mg p.o. twice daily as part of GDMT ? Lisinopril on hold for past 48 hours ? To start Entresto after EGD as part of GDMT ? Depending on blood pressure patient will also need to be started on spironolactone and SGLT2 as part of GDMT. ? Cardiology, Dr. Lin consulted. Appreciate recommendation COVID Pneumonia Transaminitis, r-factor 1.4, likely cholestatic?resolving COVID-positive, blood culture MBG x 1 day and sputum culture 1+ GPC preliminary. Plan: ? Continue to monitor CMP for LFTs - Remdesivir 100mg IV [last dose on 08/25] - Continue dexamethasone to 6 Mg IV daily started on [08/23? ? Continue levalbuterol Q8 hourly and ipratropium Q8 hourly - Continue chest physiotherapy every 8 hourly Paroxysmal afib?rate controlled and on anticoagulation Initial EKG in sinus rhythm however patient apparently went into afib while in ED, and was given a push of diltiazem, subsequently has been in sinus rhythm. Will resume home medications. From telemetry reviewed patient was on A-fib overnight rate 70s/80s. A few rounds of SVT and V. tach Patient has had a history of GI bleeds in the past on Xarelto. Unable to take aspirin due to allergy. Dr. Mcdonald contacted and recommended to start patient on Plavix once cleared with GI Plan: ? 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 Continue rhythm control with home medication amiodarone 200 Mg p.o. daily ? Continue rate control with carvedilol 12.5 Mg p.o. twice daily ? Rivaroxaban on hold due to GI bleed. ? To start patient on Plavix after EGD once cleared with GI. ? Will maintain potassium greater than 4 and magnesium greater than 2 at all times without any further arrhythmias History of tobacco use ?COPD Patient has chronic productive cough for past 2 years. And is an ex-smoker with [id number] history, quit a few years ago. According to him he had formal PFTs done as an outpatient through his PCP and states that the results were normal. We will request records from his PCP office. Currently high suspicion of COPD given patient history and symptoms, will treat as such. Plan: ? Continue nebs as above ? Peak flow ordered Rhabdomyolysis secondary to fall - improving DDx: Rhabdomyolysis, medication side effect, heat stress Patient had history of frequent falls during the past week and was immobilized for greater than 8 hours yesterday before fire service came to help him. Denied dark urine Urinalysis showed 2+ blood, 1+ ketone, 2+ protein and 2 RBC. CK elevated at 5491 ---> 2402 Orthostatic vitals were negative Plan: ? Repeat CK in the am NSTEMI type II, likely secondary to demand ischemia Patient currently denies any chest pain/pressure, palpitations. Troponin downtrending from 3.122 - 2.365. EKG on admission did not show any ST changes. Etiology likely type II from demand ischemia secondary to CHF and COVID pneumonia. Plan: ? No need to further trend troponin ? Cardiology, Dr. Lin consulted. Appreciate recommendation Sciatic lower back pain Lumbar Herniated discs - Continue gabapentin 200 mg BID due to complaint of back pain ? Lidocaine patch ordered for back pain Primary hypertension Hyperlipidemia - Continue home lisinopril 5 mg qday ? Statin on hold due to transaminitis History of KIANA -Continue CPAP at night Stroke Ruled out Possible right sided weakness, stroke alert was activated and teleneurology recommended no further workup NIHSS 1. asymmetric facial droop since which is chronic Health maintenance: Disposition: Pending EGD. Anticipate discharge within next 24 hours Diet: N.p.o. Lines: pIVs GI Prophylaxis: Pantoprazole Thrombo Prophylaxis: On hold due to GI bleed for investigation Code status: DNR Plan of care discussed with Attending Dr. Macho Ramirez MD PGY 1 Disclaimer: This note was dictated by speech recognition. Minor errors in guitar player may be present due to voice recognition software. Attending Provider Attestation/Addendum I reviewed labs, imaging, EKG, home medications and prior available records. Face to face evaluation was performed by me. I have personally examined the patient and discussed assessment and plan with the IM team. I reviewed the resident note and agree with the plan with exceptions as below. COVID-19 Non-STEMI HFrEF, EF 30%, repeat 20% CAD status post CABG Coffee-ground emesis Upper GI bleed Small bowel ileus Stopped Xarelto Status post remdesivir Continue PPI Continue atorvastatin Consulted GI: Plan for EGD today PT recommended SNF but he refused. Ordered home health
--- NOTE | 2024-08-25 10:32 | PC.SS ---
Initial assessment: patient is a 74 year old male being treated for covid and nstemi. Spoke with patient via phone call and he informs that he is a resident at [facility] independent living facility, has been there for about over a year now. Patient confirmed demographic information. Patient assigned his son, Juan Carlos as his emergency contact. Patient also provided his son Keenan Bedolla contact number: . Patient informs he resides alone. Per patient he requires minimal assistance with ADL's and has the following DME at home: electric scooter and wheelchair and two canes. Patient also reports having a CPAP machine, used at night. Patient informs his PCP is provider Roseann. Patient utilizes [facility] pharmacy for medication needs. Patient informs he has declined SNF even short term SNF. Patient also declined home health services at this time. Per patient, he will be paying out of pocket for a caregiver at [facility] as needed. Patient informs he has tried applying for medical and has not been approved due to income. Patient has no preferred DME vendor should any further DME be needed. Patient plans to return back to [facility] at time of discharge. [facility] to be contacted to arrange transportation needs if necessary. D/c plan: return to [facility] Next of kin: son, uJan Carlos
[2024-08-25] MEDS: DEXAMETHASONE SOD PHOS INJ 10 MG/ML VIAL 6 MG IV (14:10)
--- NOTE | 2024-08-25 16:16 | PC.SS ---
Addendum entered by ALLIE Castellon 08/25/24 16:41: PASRR completed. LV1. Addendum entered by ALLIE Castellon 08/25/24 16:38: SNF inquiry sent via [employer]. Pending responses. Addendum entered by ALLIE Castellon 08/25/24 16:31: SS follow up: HERBERT spoke with patient's son Keenan who goes by Ty [phone] regarding the d/c plan. Informed him the patient declined SNF and he states he and patient have spoken and would like to proceed with short term SNF, no current preferred facility. Original Note: Rounding note; pending EGD.
[2024-08-25] MEDS: carVEDILOL 12.5 MG TABLET PO (21:31)
[2024-08-25] MEDS: GABAPENTIN 100 MG CAPSULE 200 MG PO (21:31)
[2024-08-26] VITALS (14 sets, daily range): BP systolic 141–170; BP diastolic 54–72; PULSE 50–69; RESP 12–27; TEMP 36.1–37.1; O2SAT 94–100; BMI 43.7
[2024-08-26] MEDS: MORPHINE SULF INJ 10 MG/ML VIAL 2 MG IVP ×4 (05:19→20:03)
[2024-08-26 05:36] LABS: Basophils % (Auto) 0 % (0-2.5); Eosinophils % (Auto) 0 % (0-10); Hematocrit 39.8 % (41.0-53.0); Hemoglobin 13.1 g/dL (13.5-16.0); Immature Granulocytes % (Auto) 1 % (0-0); Immature Granulocytes Auto 0.06 Thou/mm3 (0.00-0.00); Lymphocytes # (Auto) 0.4 Thou/mm3 (1.0-4.8); Lymphocytes % (Auto) 3 % (10-50); Mean Corpuscular HGB Conc 32.9 g/dl (31.0-37.0); Mean Corpuscular Hemoglobin 32.1 pg (25.0-35.0); Mean Corpuscular Volume 98 fL (80-100); Monocytes # (Auto) 0.8 Thou/mm3 (0.0-0.8); Monocytes % (Auto) 6 % (0-12); Neutrophils % (Auto) 91 % (37-80); Nucleated Red Blood Cell % 0 /100 WBC (0); Platelet Count 292 Thou/mm3 (140-440); Red Blood Count 4.08 Miln/mm3 (4.50-5.90); White Blood Count 13.2 Thou/mm3 (3.8-10.6)
[2024-08-26 06:15] LABS: Alanine Aminotransferase 66 U/L (10-49); Albumin, Serum 3.8 gm/dL (3.4-4.8); Albumin/Globulin Ratio 1.5 (1.2-2.2); Alkaline Phosphatase 105 U/L (46-116); Anion Gap 12 (7-16); Aspartate Amino Transferase 85 U/L (0-34); BUN/Creatinine Ratio 35 Ratio (12-20); Bilirubin,Total 0.6 mg/dL (0.3-1.2); Blood Urea Nitrogen 42 mg/dL (9-23); Calcium 8.4 mg/dL (8.3-10.6); Calcium (Corrected) 8.6 mg/dL (8.5-10.1); Carbon Dioxide 30.1 mMol/L (20.0-31.0); Chloride 102 mMol/L (98-107); Creatine Kinase 646 U/L (34-171); Creatinine (Component) 1.2 mg/dL (0.6-1.3); Estimated Creatinine Clearance 77.8 mL/min (>60); Globulin 2.5 gm/dL (2.3-3.5); Glucose 167 mg/dL (74-106); Magnesium 2.5 mg/dL (1.6-2.6); Osmolality,Calculated 301 (275-295); Phosphorous 3.6 mg/dL (2.4-5.1); Potassium 4.4 mMol/L (3.4-5.1); Sodium 144 mMol/L (136-145); Total Protein 6.3 gm/dL (5.7-8.2); eGFR > 60 See Note
[2024-08-26] MEDS: LEVALBUTEROL RT 0.31 MG/3 ML NEBU INH ×2 (06:25→22:03)
[2024-08-26] MEDS: IPRATROPIUM RT 0.5 MG/ 2.5 ML NEBU INH ×2 (06:25→22:03)
[2024-08-26] MEDS: HYDROcodone/APAP 5/325 TABLET 1 TAB PO ×2 (07:50→17:12)
[2024-08-26] MEDS: Furosemide 40 MG TABLET PO ×2 (08:01→17:06)
[2024-08-26] MEDS: carVEDILOL 12.5 MG TABLET PO (08:01)
[2024-08-26] MEDS: ATORVASTATIN CALCIUM 20 MG TABLET 40 MG PO (08:01)
[2024-08-26] MEDS: GABAPENTIN 100 MG CAPSULE 200 MG PO ×2 (08:01→20:50)
[2024-08-26] MEDS: PANTOPRAZOLE 40 MG TABLET PO (08:01)
[2024-08-26] MEDS: AMIODARONE HCL 200 MG TABLET PO (08:02)
[2024-08-26] MEDS: SENNA TABLET 1 TAB PO (08:02)
[2024-08-26] MEDS: SACUBITRIL 24 MG/VALSARTAN 26 MG TABLET 1 TAB PO (08:02)
[2024-08-26] MEDS: CLOPIDOGREL BISULFATE 75 MG TABLET PO (08:02)
--- NOTE | 2024-08-26 09:50 | PC.SS ---
Update: Plan is to d/c the patient to SNF today.
--- NOTE | 2024-08-26 09:53 | PC.SS ---
Update: Plan is to d/c the patient to SNF today.
--- NOTE | 2024-08-26 10:18 | PC.SS ---
HIGHER EDUCATION ADMINISTRATOR confirmed with patient that SNF of choice is [facility]. SNF has accepted the patient for placement. HIGHER EDUCATION ADMINISTRATOR left voicemail with patient's son, TY ; to provide update.
[2024-08-26] MEDS: SPIRONOLACTONE 25 MG TABLET PO (10:53)
[2024-08-26] MEDS: LOSARTAN POTASSIUM 25 MG TABLET 50 MG PO (10:54)
--- NOTE | 2024-08-26 13:05 | ESPR_ITS ---
Documentation for date of: 08/26/24 Subjective Subjective Interval history: Patient evaluated Hemoglobin hematocrit of 13.1 and 35.8 From a GI viewpoint patient can be discharged home Upper endoscopy showed gastritis Patient can be fully anticoagulated Exam Vital Signs Temp Pulse Resp BP Pulse Ox O2 Del Method O2 Flow Rate 98.8 F 55 L 27 H 141/62 H 96 Nasal Cannula 2 08/26/24 12:00 08/26/24 12:00 08/26/24 12:00 08/26/24 12:00 08/26/24 12:00 08/26/24 12:00 08/26/24 12:00 Objective Labs 08/26/24 04:27 08/26/24 04:27 Labs: Laboratory Results - last 24 hr 08/26/24 04:27 WBC 13.2 H RBC 4.08 L Hgb 13.1 L Hct 39.8 L MCV 98 MCH 32.1 MCHC 32.9 RDW Std Deviation 52.0 H Plt Count 292 Neut % (Auto) 91 H Lymph % (Auto) 3 L [place] % (Auto) 6 Eos % (Auto) 0 Baso % (Auto) 0 Neut # (Auto) 12.0 H Lymph # (Auto) 0.4 L [place] # (Auto) 0.8 Eos # (Auto) 0.0 Baso # (Auto) 0.0 Immature Gran # (Auto) 0.06 H Absolute Nucleated RBC 0.00 Immature Gran % 1 H Nucleated RBC % 0 Sodium 144 Potassium 4.4 Chloride 102 Carbon Dioxide 30.1 Anion Gap 12 BUN 42 H Creatinine 1.2 Estim Creat Clear Calc 77.8 eGFR > 60 BUN/Creatinine Ratio 35 H Glucose 167 H Calculated Osmolality 301 H Calcium 8.4 Corrected Calcium 8.6 Phosphorus 3.6 Magnesium 2.5 Total Bilirubin 0.6 AST 85 H ALT 66 H Alkaline Phosphatase 105 Total Creatine Kinase 646 H D Total Protein 6.3 Albumin 3.8 Globulin 2.5 Albumin/Globulin Ratio 1.5 Impressions Impression: Gastritis Upper GI bleed stable Okay to discharge patient home and be fully anticoagulate Assessment & Plan A&P Narrative w/u for GI bleed Plan Time Spent With Patient Time: Total time spent is greater than 50% in coordination of care (as documented) at patient's floor/unit and/or counseling patient:
--- NOTE | 2024-08-26 13:27 | ESDS_ITS ---
<Statement entered by Merle Matias MD - 08/26/24 22:12> Patient was seen and examined at bedside. I agree on the assessment and plan on this note. - Patient's plan and care discussed with my attending, Dr. Macho Matias MD Internal Medicine PGY-2 Planned Discharge Date 08/26/24 DS: Providers Provider Date of admission: 08/23/24 00:27 Primary care physician: Physician No Primary/Family Admitting Provider: Chito Fernandez MD Attending Provider on Admission: Casey Pritchard MD Consults: 08/23/24 07:25 Referral Physical Therapy Routine Comment: Physician Instructions: Instructions: History of frequent falls. Resides in assisted living facility 08/23/24 10:48 Consult to Cardiology Routine Comment: Consulting Provider: George Lin Instructions: Pacemaker 07/06/2024. Afib, SVT overnight 08/24/24 07:51 Consult to Gastroenterology Routine Comment: Coffee ground contents from NGT Consulting Provider: Alin Smith Attending Provider on DC: Casey Pritchard MD Discharging Provider: Boris Ramirez MD DS: Diagnosis Problem List Completed Was Problem List Reviewed/Reconciled?: Yes Hospital Course Hospital Course Hospital course: 74-year-old male with past medical history of CAD s/p CABG x3, HFrEF 30% s/p MENTAL HEALTH NURSE?D 07/06/24, afib on Xarelto, primary hypertension, COPD, KIANA on CPAP, depression, and anxiety who presented to the ED on 08/22/2024 with symptoms of generalized weakness and frequent falls for 3 days, admitted for COVID and NSTEMI.1 4 patient was COVID pneumonia he was treated with loading dose of remdesivir 200 Mg IV x 1 followed by remdesivir 100 Mg IV for 2 days. He also was treated with levalbuterol nebs every 8 hourly, ipratropium nebs every 8 hourly, dexamethasone 6 Mg IV 3 days and chest physiotherapy after which his symptoms of shortness of breath and cough significantly improved. On admission he also had an episode of A-fib with RVR with heart rates in the 130s which ret urned to normal rates after diltiazem 5 Mg IV x 1 was given. During hospitalization patient complained of abdominal pain and a KUB x-ray was obtained which showed ileus. Subsequently a G-tube was placed and approximately 1000 cc of coffee-ground lavage was obtained. Xarelto was discontinued, pantoprazole 40 Mg IV twice daily was started and dental claims processor, Dr. Smith was consulted for EGD. EGD was done and showed no signs of active bleeding and gastritis of the examined stomach. Patient's glove stitcher, Dr. Mcdonald was reached out to for recommendations about anticoagulation, he agreed with our decision to stop Xarelto and to start the patient on Plavix 75 Mg p.o. daily. Of note patient also had repeat echocardiogram done while in hospital which showed estimated EF 20% global ventricular systolic function severely reduced and mild to moderate . Patient's GDMT was optimized by adding losartan 50 Mg p.o. daily, discontinuing lisinopril and starting spironolactone 25 Mg p.o. daily. We will defer to his outpatient glove stitcher for recommendations about starting SGLT2 as part of GDMT. All patient's labs are now returning to his baseline and patient is clinically stable and fit for discharge to SNF. Discharge diagnoses: 1. GI bleed, coffee-ground contents observed via NG tube lavage?resolved 2. Chronic systolic congestive heart failure with reduced EF [20%] s/p MENTAL HEALTH NURSE-D 07/06/2024 3. COVID-pneumonia?resolving 4. Transaminitis?resolving 5. Paroxysmal atrial fibrillation, rate controlled and on antiplatelet 6. History of tobacco use 7. Likely chronic bronchitis 9. Rhabdomyolysis?resolved 10. NSTEMI type II, likely secondary to demand ischemia 11. Sciatic lower back pain 12. Lumbar herniated disc 13. Primary hypertension 14. Hyperlipidemia 15. History of KIANA 16. Stroke ruled out Discharge plan: ? You have been started on an inhaler albuterol. Take 2 puffs up to 4 times a day as necessary for shortness of breath or wheezing. ? You have been started on an inhaler tiotropium. Take 2 puffs/day as needed for shortness of breath or wheezing. ? We have decreased your Coreg dose to 6.25 twice a day. This was because of your low heart rate. If you have any remaining 12.5 tablets at home you can cut them in half. ? We have started you on a medication gabapentin for your back pain. Take 2 tablets twice a day. ? We have started you on a medication losartan for your blood pressure and heart failure. Take 1 tablet once a day. ? We have started you on a medication spironolactone for your heart failure. Take 1 tablet once a day. ? We have started you on a medication pantoprazole for the inflammation in your stomach. Take 1 tablet once a day. ? We have completely discontinued your medication Xarelto due to your bleeding risk. If you have any remaining at home please discard. ? We have completely discontinued your medication lisinopril. If you have any remaining at home please discard. ? You will have to restrict your daily liquid intake to 1.5 Litres / 50 ounces per day. This includes water, teas, coffees and soups. ? You will have to follow a low salt diet for the rest of your life. This means no Sinhala food or fast food. ? You will have to take your weight daily. If your weight increases by more than 3-5 pounds in 1-2 days, take an extra water pill that day. ? You will have to measure your blood pressure daily. If the top number is less than 100, do not take your blood pressure medications that day. ? Keep a log of your blood pressures to take to your primary doctor and glove stitcher. ? Continue taking amiodarone 1 tablet once a day. ? Continue taking atorvastatin 1 tablet a day. ? Continue taking your Lasix, 1 tablet twice a day. ? We recommend you wear a facemask when interacting with people for the next 2 days due to your COVID infection ? We recommend you follow-up with your primary care doctor for referral to a clinical genetics laboratory chief for formal lung function test. ? Recommend you follow-up with your glove stitcher, Dr. Mcdonald within 1 week to review your medications and blood pressure control. Also to assess for you starting SGLT2 - Follow up with your primary care physician within 1 week of discharge. If you do not have a primary care physician, please follow up with the [facility] Residents clinic ([phone]) ? If you experience any new, worsening or persistent symptoms either call your primary doctor, or dial 911 or present to the emergency department. We are grateful to be able to participate in Mr. Bedolla's care. We wish him the best. Plan of care discussed with Attending Dr. Pritchard and PGY2 Dr. Florencio Ramirez MD PGY 1 Disclaimer: This note was dictated by speech recognition. Minor errors in billing and insurance coordinator may be present due to voice recognition software. Time Spent with Patient Time attestation: Total time spent providing and/or coordinating discharge services: Time spent: Greater than 30 minutes (41) Home Health Home Health Referral Orders: 08/25/24 11:02 Home Health Referral Routine Reason For Exam: Home PT Home-Bound The patient must either because of illness or injury, need the aid of supportive devices such as crutches, canes, wheelchairs, and walkers; the use of special transportation; or the assistance of another person in order to leave their place of residence; OR have a condition such that leaving his or her home is medically contraindicated. In addition, the patient also meets the following criteria: patient is normally unable to leave the home and leaving home requires considerable taxing effort. Addendum to Home Health Certification Practitioner's Certification: I certify that the patient has been under my care in the hospital and the care of attending physician (see below). We had a yant-vh-[id number] encounter on (see date below). My clinical findings indicate that the patient is home bound per the above criteria and the Home Health Services noted in these orders are medically necessary. The primary reason for the wnae-vv-yndd encounter is related to the fact that the patient requires home health services. Date Certifying Eeza-kb-Tabx Physician Encounter: 08/23/24 Physician's Name who will Assume Oversight for HH Services: Physician No Primary/Family DRAMA CRITIC - Community Resources: Yes PT to Evaluate: Yes PT to evaluate and provide a treatmnet plan to increase patient's mobility and strength. Wound Care: No IV Therapy: No RN Safety Evaluation: Yes RN to evaluate and create a plan of care that will produce positive outcomes. Palliative Treatment: No Palliative treatment and evaluate the need for hospice. Home Health Aide - Personal Care: Yes Home Health Aide to assist with any ADL's. Exam Vital Signs Temp Pulse Resp BP Pulse Ox O2 Del Method O2 Flow Rate 98.8 F 55 L 27 H 141/62 H 96 Nasal Cannula 2 08/26/24 12:00 08/26/24 12:00 08/26/24 12:00 08/26/24 12:00 08/26/24 12:00 08/26/24 12:00 08/26/24 12:00 Narrative Exam Constitutional Alert, oriented x 3 and comfortable. Elderly male HEENT Vision grossly intact. Patent nares. Trachea midline Respiratory Chest normal on inspection and transmitted sounds, lungs clear to auscultation Cardiovascular S1 and S2 audible, RRR. No murmurs carotid bruit. No gross JVD. Abdominal Soft, obese and non tender to palpation in all quadrants. BS + Genitourinary No bladder tenderness, no flank pain. Normal to palpation Musculoskeletal Extremities tone within normal limits. No signs of lower extremity edema Skin Warm, dry and intact. No apparent lesions. Psychiatric Patient has good affect, is cooperative Neurological CN II - XII grossly intact. Extremity motor and sensation grossly intact. 1A: Level of Consciousness - Alert; keenly responsive + 0 1B: Ask Month and Age - Both Questions Right + 0 1C: Blink Eyes & Squeeze Hands - Performs Both Tasks + 0 2: Test Horizontal Extraocular Movements - Normal + 0 3: Test Visual [place]en - No Visual Loss + 0 4: Test Facial Palsy (Use Grimace if Obtunded) - Minor paralysis (flat nasolabial fold, smile asymmetry) + 1 5A: Test Left Arm Motor Drift - No Drift for 10 Seconds + 0 5B: Test Right Arm Motor Drift - No Drift for 10 Seconds + 0 6A: Test Left Leg Motor Drift - No Drift for 5 Seconds + 0 6B: Test Right Leg Motor Drift - No Drift for 5 Seconds + 0 7: Test Limb Ataxia (FNF/Heel-Oneil) - No Ataxia + 0 8: Test Sensation - Normal; No sensory loss + 0 9: Test Language/Aphasia - Normal; No aphasia + 0 10: Test Dysarthria - Normal + 0 11: Test Extinction/Inattention - No abnormality + 0 NIHSS Score: 1 NIHSS Free Text : The patient is completely cognitively intact. There really isn't a nasolabial fold but there is a slight asymmetry of his smile with slightly less prominence of the LEFT nasolabial fold than the right. He is adamant that this is his normal smile. Pre-Morbid Modified [place] Scale:3 Points = Moderate disability; requiring some help, but able to walk without assistance Discharge Plan Plan Patient Disposition: Xfer Skilled Ns Fac (SNF) Patient condition on transfer: Stable and Benefits outweigh risks Care Plan Goals: ? You have been started on an inhaler albuterol. Take 2 puffs up to 4 times a day as necessary for shortness of breath or wheezing. ? You have been started on an inhaler tiotropium. Take 2 puffs/day as needed for shortness of breath or wheezing. ? We have decreased your Coreg dose to 6.25 twice a day. This was because of your low heart rate. If you have any remaining 12.5 tablets at home you can cut them in half. ? We have started you on a medication gabapentin for your back pain. Take 2 tablets twice a day. ? We have started you on a medication losartan for your blood pressure and heart failure. Take 1 tablet once a day. ? We have started you on a medication spironolactone for your heart failure. Take 1 tablet once a day. ? We have started you on a medication pantoprazole for the inflammation in your stomach. Take 1 tablet once a day. ? We have completely discontinued your medication Xarelto due to your bleeding risk. If you have any remaining at home please discard. ? We have completely discontinued your medication lisinopril. If you have any remaining at home please discard. ? You will have to restrict your daily liquid intake to 1.5 Litres / 50 ounces per day. This includes water, teas, coffees and soups. ? You will have to follow a low salt diet for the rest of your life. This means no Sinhala food or fast food. ? You will have to take your weight daily. If your weight increases by more than 3-5 pounds in 1-2 days, take an extra water pill that day. ? You will have to measure your blood pressure daily. If the top number is less than 100, do not take your blood pressure medications that day. ? Keep a log of your blood pressures to take to your primary doctor and glove stitcher. ? Continue taking amiodarone 1 tablet once a day. ? Continue taking atorvastatin 1 tablet a day. ? Continue taking your Lasix, 1 tablet twice a day. ? We recommend you wear a facemask when interacting with people for the next 2 days due to your COVID infection ? We recommend you follow-up with your primary care doctor for referral to a clinical genetics laboratory chief for formal lung function test. ? Recommend you follow-up with your glove stitcher, Dr. Mcdonald within 1 week to review your medications and blood pressure control. Also to assess for you starting SGLT2 - Follow up with your primary care physician within 1 week of discharge. If you do not have a primary care physician, please follow up with the [facility] Residents clinic ([phone]) ? If you experience any new, worsening or persistent symptoms either call your primary doctor, or dial 911 or present to the emergency department. Prescriptions/Referrals Prescriptions/Med Rec: New clopidogrel 75 mg Tablet 75 mg PO QDAY 30 Days Qty: 30 1RF gabapentin 100 mg Capsule 200 mg PO BID 30 Days Qty: 120 0RF losartan 50 mg tablet 50 mg PO QDAY 30 Days Qty: 30 0RF spironolactone 25 mg Tablet 25 mg PO DAILY 30 Days Qty: 30 1RF pantoprazole 40 mg Tablet,Delayed Release (Dr/Ec) 40 mg PO QDAY 30 Days Qty: 30 0RF albuterol sulfate [Ventolin HFA] 90 mcg/actuation HFA aerosol inhaler 2 puff inhalation QID PRN (Reason: shortness of breath or wheezing) 30 Days Qty: 6.7 3RF tiotropium bromide 1.25 mcg/actuation mist 2 puff inhalation Q24H PRN (Reason: shortness of breath or wheezing) Qty: 4 0RF Continued atorvastatin 40 mg tablet 40 mg PO QDAY Patient Comments: TAKE 1 TABLET BY MOUTH EVERY DAY furosemide 40 mg tablet 40 mg PO BID Patient Comments: TAKE 1 TABLET BY MOUTH TWICE A DAY amiodarone 200 mg tablet 200 mg PO QDAY Patient Comments: TAKE 1 TABLET BY MOUTH EVERY DAY Discontinued Xarelto 20 mg tablet 20 mg PO QDAY Rx Instructions: must administer with evening meal carvedilol 12.5 mg tablet 12.5 mg PO BID Patient Comments: TAKE 1 TABLET BY MOUTH TWICE A DAY lisinopril 5 mg tablet 5 mg PO QDAY Patient Comments: TAKE 1 TABLET BY MOUTH EVERY DAY Referrals: Rod Mcdonald MD [Physician] - No Primary/Family,Physician [Primary Care Provider] - Patient/Caregiver Discharge Instructions Discharge Activity: as per physical therapy Education Materials: COVID-19 Home Care, AFL/Afib, Coping with Heart Failure Print Language: French Stand Alone Forms: Anna Award Info., Patient Portal Info Letter Discharge Order Discharge Orders: Discharge (Routine); Ordered 08/26/24 Ordered By: Boris Ramirez Quality Discharge Quality Measures VTE prophylaxis Attestestation Attestation I reviewed labs, imaging, EKG, home medications and prior available records. Face to face evaluation was performed by me. I have personally examined the patient and discussed assessment and plan with the IM team. I reviewed the resident note and agree with the plan with exceptions as below. COVID-19 Non-STEMI HFrEF, EF 30%, repeat 20% CAD status post CABG Coffee-ground emesis Upper GI bleed Small bowel ileus Status post EGD that showed gastritis Discussed with cardiology: Plavix only Stopped Xarelto Status post remdesivir Continue PPI Continue atorvastatin PT recommended SNF. He refused initially then agreed. Discussed with health and social care teacher Refused Entresto. Started losartan in addition to Coreg. Continue Lasix and spironolactone
--- NOTE | 2024-08-26 14:41 | PC.SS ---
Addendum entered and electronically signed by ALLIE Garland 08/26/24 17:05: PHLEBOTOMY MANAGER updated patient's son that discharge to SNF held due to lack of bowel movement. Original Note: ALLIE confirmed with patient's son, TY ; that patient has agreed to transition to [facility].
--- NOTE | 2024-08-26 14:41 | PC.SS ---
Addendum entered and electronically signed by ALLIE Garland 08/26/24 17:06: SCHOOL TEACHER notified SNF staff that patient is pending bowel movement. Transition to SNF on hold. Original Note: SCHOOL TEACHER informed by bedside nurse that patient has not had a bowel movement. SCHOOL TEACHER notified resident team. Discharge to SNF pending confirmation of bowel movement.
--- NOTE | 2024-08-26 15:55 | PC.CC ---
pt accepted to SNF, will keep hh referral open until pt d/c's to SNF
[2024-08-26] MEDS: LACTULOSE SYRUP 20 GM/30 ML UDC PO (20:50)
[2024-08-26] MEDS: carVEDILOL 12.5 MG TABLET 6.25 MG PO (20:51)
[2024-08-26] MEDS: POLYETHYLENE GLYCOL 17 GM PACKET PO (20:54)
[2024-08-27] VITALS (12 sets, daily range): BP systolic 115–151; BP diastolic 54–71; PULSE 50–64; RESP 12–18; TEMP 35.3–37.6; O2SAT 94–100; BMI 43.7; BMI 43.6
[2024-08-27] MEDS: MORPHINE SULF INJ 10 MG/ML VIAL 2 MG IVP ×2 (03:06→08:44)
[2024-08-27] MEDS: HYDROcodone/APAP 5/325 TABLET 1 TAB PO ×2 (04:37→13:04)
[2024-08-27] MEDS: Furosemide 40 MG TABLET PO ×2 (05:41→17:38)
[2024-08-27 06:10] LABS: Basophils % (Auto) 0 % (0-2.5); Eosinophils % (Auto) 0 % (0-10); Hematocrit 42.1 % (41.0-53.0); Hemoglobin 14.1 g/dL (13.5-16.0); Immature Granulocytes % (Auto) 1 % (0-0); Lymphocytes # (Auto) 0.8 Thou/mm3 (1.0-4.8); Lymphocytes % (Auto) 6 % (10-50); Mean Corpuscular HGB Conc 33.5 g/dl (31.0-37.0); Mean Corpuscular Hemoglobin 32.1 pg (25.0-35.0); Mean Corpuscular Volume 96 fL (80-100); Monocytes # (Auto) 1.4 Thou/mm3 (0.0-0.8); Monocytes % (Auto) 10 % (0-12); Neutrophils # (Auto) 12.1 Thou/mm3 (1.8-7.7); Neutrophils % (Auto) 83 % (37-80); Nucleated Red Blood Cell % 0 /100 WBC (0); Platelet Count 273 Thou/mm3 (140-440); RDW Standard Deviation 50.1 fL (35.1-43.9); Red Blood Count 4.39 Miln/mm3 (4.50-5.90); White Blood Count 14.5 Thou/mm3 (3.8-10.6)
[2024-08-27 06:12] LABS: Alanine Aminotransferase 59 U/L (10-49); Albumin, Serum 3.7 gm/dL (3.4-4.8); Albumin/Globulin Ratio 1.4 (1.2-2.2); Alkaline Phosphatase 103 U/L (46-116); Anion Gap 11 (7-16); Aspartate Amino Transferase 61 U/L (0-34); BUN/Creatinine Ratio 39 Ratio (12-20); Bilirubin,Total 0.7 mg/dL (0.3-1.2); Blood Urea Nitrogen 47 mg/dL (9-23); Calcium 8.4 mg/dL (8.3-10.6); Calcium (Corrected) 8.6 mg/dL (8.5-10.1); Carbon Dioxide 30.8 mMol/L (20.0-31.0); Chloride 102 mMol/L (98-107); Creatinine (Component) 1.2 mg/dL (0.6-1.3); Estimated Creatinine Clearance 77.8 mL/min (>60); Globulin 2.6 gm/dL (2.3-3.5); Glucose 107 mg/dL (74-106); Magnesium 2.3 mg/dL (1.6-2.6); Osmolality,Calculated 299 (275-295); Phosphorous 3.8 mg/dL (2.4-5.1); Sodium 144 mMol/L (136-145); Total Protein 6.3 gm/dL (5.7-8.2); eGFR > 60 See Note
[2024-08-27] MEDS: LEVALBUTEROL RT 0.31 MG/3 ML NEBU INH (06:21)
[2024-08-27] MEDS: IPRATROPIUM RT 0.5 MG/ 2.5 ML NEBU INH (06:21)
[2024-08-27] MEDS: POLYETHYLENE GLYCOL 17 GM PACKET PO (08:21)
--- NOTE | 2024-08-27 08:27 | PC.SS ---
Addendum entered by ALLIE Castellon 08/27/24 16:20: Patient unable to pay for transport and requiring 02 needs. [facility] obtained by transfer nurse Dena. [facility] ETA 1730. Patient's son, TY was notified of d/c for today. Lyssa at [facility] and [facility] aware of ETA. Addendum entered by ALLIE Castellon 08/27/24 14:21: Per [facility] patient had Bowel movement. Transportation via [facility] is pending an ETA. Lyssa at [facility] is aware. Addendum entered by ALLIE Castellon 08/27/24 09:25: SS update: [facility] was sent via file exchange to [facility]. Original Note: SS follow up: per [facility], the patient has not had a bowel movement. Pending before d/c to [facility].
[2024-08-27] MEDS: CLOPIDOGREL BISULFATE 75 MG TABLET PO (08:28)
[2024-08-27] MEDS: ATORVASTATIN CALCIUM 20 MG TABLET 40 MG PO (08:28)
[2024-08-27] MEDS: SENNA TABLET 1 TAB PO (08:28)
[2024-08-27] MEDS: AMIODARONE HCL 200 MG TABLET PO (08:31)
[2024-08-27] MEDS: PANTOPRAZOLE 40 MG TABLET PO (08:31)
[2024-08-27] MEDS: SPIRONOLACTONE 25 MG TABLET PO (08:31)
[2024-08-27] MEDS: GABAPENTIN 100 MG CAPSULE 200 MG PO (08:32)
[2024-08-27] MEDS: LOSARTAN POTASSIUM 25 MG TABLET 50 MG PO (08:32)
--- NOTE | 2024-08-27 08:37 | PD.IMPROG ---
Documentation for date of: 08/27/24 Subjective Subjective Interval history: Patient evaluated Hemoglobin hematocrit stable at 14.1 and 42.1 Okay to discharge patient home from a GI viewpoint to be followed by the PCP Exam Vital Signs Temp Pulse Resp BP Pulse Ox O2 Del Method O2 Flow Rate 99.7 F 58 L 18 129/63 100 CPAP 2 08/27/24 04:00 08/27/24 08:32 08/27/24 06:21 08/27/24 08:32 08/27/24 06:21 08/27/24 04:00 08/27/24 06:21 Objective Labs 08/27/24 04:33 08/27/24 04:33 Labs: Laboratory Results - last 24 hr 08/27/24 04:33 WBC 14.5 H RBC 4.39 L Hgb 14.1 Hct 42.1 MCV 96 MCH 32.1 MCHC 33.5 RDW Std Deviation 50.1 H Plt Count 273 Neut % (Auto) 83 H Lymph % (Auto) 6 L [place] % (Auto) 10 Eos % (Auto) 0 Baso % (Auto) 0 Neut # (Auto) 12.1 H Lymph # (Auto) 0.8 L [place] # (Auto) 1.4 H Eos # (Auto) 0.0 Baso # (Auto) 0.0 Immature Gran # (Auto) 0.10 H Absolute Nucleated RBC 0.00 Immature Gran % 1 H Nucleated RBC % 0 Sodium 144 Potassium 4.0 Chloride 102 Carbon Dioxide 30.8 Anion Gap 11 BUN 47 H Creatinine 1.2 Estim Creat Clear Calc 77.8 eGFR > 60 BUN/Creatinine Ratio 39 H Glucose 107 H D Calculated Osmolality 299 H Calcium 8.4 Corrected Calcium 8.6 Phosphorus 3.8 Magnesium 2.3 Total Bilirubin 0.7 AST 61 H ALT 59 H Alkaline Phosphatase 103 Total Protein 6.3 Albumin 3.7 Globulin 2.6 Albumin/Globulin Ratio 1.4 Impressions Impression: Gastritis Esophagitis Stable hemoglobin hematocrit okay to discharge patient home and patient can be fully anticoagulated Assessment & Plan A&P Narrative w/u for GI bleed Plan Time Spent With Patient Time: Total time spent is greater than 50% in coordination of care (as documented) at patient's floor/unit and/or counseling patient:
[2024-08-27] MEDS: LIDOCAINE 5% 1 PATCH TOP (10:35)
[2024-08-27] MEDS: LACTULOSE SYRUP 20 GM/30 ML UDC PO (10:35)
--- NOTE | 2024-08-27 13:35 | PD.RESDS ---
Planned Discharge Date 08/27/24 DS: Providers Provider Date of admission: 08/23/24 00:27 Primary care physician: Physician No Primary/Family Admitting Provider: Chito Fernandez MD Attending Provider on Admission: Casey Pritchard MD Consults: 08/23/24 07:25 Referral Physical Therapy Routine Comment: Physician Instructions: Instructions: History of frequent falls. Resides in assisted living facility 08/23/24 10:48 Consult to Cardiology Routine Comment: Consulting Provider: George Lin Instructions: Pacemaker 07/06/2024. Afib, SVT overnight 08/24/24 07:51 Consult to Gastroenterology Routine Comment: Coffee ground contents from NGT Consulting Provider: Alin Smith Attending Provider on DC: Casey Pritchard MD Discharging Provider: Boris Ramirez MD DS: Diagnosis Problem List Completed Was Problem List Reviewed/Reconciled?: Yes Hospital Course Hospital Course Hospital course: 74-year-old male with past medical history of CAD s/p CABG x3, HFrEF 30% s/p ELECTRIC FREIGHT CAR OPERATOR?D 07/06/24, afib on Xarelto, primary hypertension, COPD, KIANA on CPAP, depression, and anxiety who presented to the ED on 08/22/2024 with symptoms of generalized weakness and frequent falls for 3 days, admitted for COVID and NSTEMI.1 4 patient was COVID pneumonia he was treated with loading dose of remdesivir 200 Mg IV x 1 followed by remdesivir 100 Mg IV for 2 days. He also was treated with levalbuterol nebs every 8 hourly, ipratropium nebs every 8 hourly, dexamethasone 6 Mg IV 3 days and chest physiotherapy after which his symptoms of shortness of breath and cough significantly improved. On admission he also had an episode of A-fib with RVR with heart rates in the 130s which returned to normal rates after diltiazem 5 Mg IV x 1 was given. During hospitalization patient complained of abdominal pain and a KUB x-ray was obtained which showed ileus. Subsequently a G-tube was placed and approximately 1000 cc of coffee-ground lavage was obtained. Xarelto was discontinued, pantoprazole 40 Mg IV twice daily was started and contact center assistant, Dr. Smith was consulted for EGD. EGD was done and showed no signs of active bleeding and gastritis of the examined stomach. Patient's insecticide supervisor, Dr. Mcdonald was reached out to for recommendations about anticoagulation, he agreed with our decision to stop Xarelto and to start the patient on Plavix 75 Mg p.o. daily. Of note patient also had repeat echocardiogram done while in hospital which showed estimated EF 20% global ventricular systolic function severely reduced and mild to moderate . Patient's GDMT was optimized by adding losartan 50 Mg p.o. daily, discontinuing lisinopril and starting spironolactone 25 Mg p.o. daily. We will defer to his outpatient insecticide supervisor for recommendations about starting SGLT2 as part of GDMT. Ideally we wanted to start the patient on Entresto as part of GDMT, but patient expressed difficulties obtaining this due to his insurance issues. All patient's labs are now returning to his baseline and patient is clinically stable and fit for discharge to SNF. Discharge diagnoses: 1. GI bleed, coffee-ground contents observed via NG tube lavage?resolved 2. Chronic systolic congestive heart failure with reduced EF [20%] s/p ELECTRIC FREIGHT CAR OPERATOR-D 07/06/2024 3. COVID-pneumonia?resolving 4. Transaminitis?resolving 5. Paroxysmal atrial fibrillation, rate controlled and on antiplatelet 6. History of tobacco use 7. Likely chronic bronchitis 9. Rhabdomyolysis?resolved 10. NSTEMI type II, likely secondary to demand ischemia 11. Sciatic lower back pain 12. Lumbar herniated disc 13. Primary hypertension 14. Hyperlipidemia 15. History of KIANA 16. Stroke ruled out Discharge plan: ? You have been started on an inhaler albuterol. Take 2 puffs up to 4 times a day as necessary for shortness of breath or wheezing. ? You have been started on an inhaler tiotropium. Take 2 puffs/day as needed for shortness of breath or wheezing. ? We have decreased your Coreg dose to 3.125 twice a day. This was because of your low heart rate. If you have any remaining 12.5 tablets at home you can cut them in quarter. ? We have started you on a medication gabapentin for your back pain. Take 2 tablets twice a day. ? We have started you on a medication losartan for your blood pressure and heart failure. Take 1 tablet once a day. ? We have started you on a medication spironolactone for your heart failure. Take 1 tablet once a day. ? We have started you on a medication pantoprazole for the inflammation in your stomach. Take 1 tablet once a day. ? We have completely discontinued your medication Xarelto due to your bleeding risk. If you have any remaining at home please discard. ? We have completely discontinued your medication lisinopril. If you have any remaining at home please discard. - Ideally we wanted to start you on Entresto for your heart failure, but patient expressed difficulties affording the medication ? You will have to restrict your daily liquid intake to 1.5 Litres / 50 ounces per day. This includes water, teas, coffees and soups. ? You will have to follow a low salt diet for the rest of your life. This means no Tristanian food or fast food. ? You will have to take your weight daily. If your weight increases by more than 3-5 pounds in 1-2 days, take an extra water pill that day. ? You will have to measure your blood pressure daily. If the top number is less than 100, do not take your blood pressure medications that day. ? Keep a log of your blood pressures to take to your primary doctor and insecticide supervisor. ? Continue taking amiodarone 1 tablet once a day. ? Continue taking atorvastatin 1 tablet a day. ? Continue taking your Lasix, 1 tablet twice a day. ? We recommend you wear a facemask when interacting with people for the next 2 days due to your COVID infection ? We recommend you follow-up with your primary care doctor for referral to a cnc router operator for formal lung function test. ? Recommend you follow-up with your insecticide supervisor, Dr. Mcdonald within 1 week to review your medications and blood pressure control. Also to assess for you starting SGLT2 - Follow up with your primary care physician within 1 week of discharge. If you do not have a primary care physician, please follow up with the [facility] Residents clinic ([phone]) ? If you experience any new, worsening or persistent symptoms either call your primary doctor, or dial 911 or present to the emergency department. We are grateful to be able to participate in Mr. Bedolla's care. We wish him the best. Plan of care discussed with Attending Dr. Pritchard and PGY2 Dr. Florencio Ramirez MD PGY 1 Disclaimer: This note was dictated by speech recognition. Minor errors in fulfillment coordinator may be present due to voice recognition software. Time Spent with Patient Time attestation: Total time spent providing and/or coordinating discharge services: Time spent: Greater than 30 minutes (41) Home Health Home Health Referral Orders: 08/25/24 11:02 Home Health Referral Routine Reason For Exam: Home PT Home-Bound The patient must either because of illness or injury, need the aid of supportive devices such as crutches, canes, wheelchairs, and walkers; the use of special transportation; or the assistance of another person in order to leave their place of residence; OR have a condition such that leaving his or her home is medically contraindicated. In addition, the patient also meets the following criteria: patient is normally unable to leave the home and leaving home requires considerable taxing effort. Addendum to Home Health Certification Practitioner's Certification: I certify that the patient has been under my care in the hospital and the care of attending physician (see below). We had a [id number] encounter on (see date below). My clinical findings indicate that the patient is home bound per the above criteria and the Home Health Services noted in these orders are medically necessary. The primary reason for the [id number] encounter is related to the fact that the patient requires home health services. Date Certifying Bpxv-ve-Uutd Physician Encounter: 08/23/24 Physician's Name who will Assume Oversight for HH Services: Physician No Primary/Family RUBBER ROLLER GRINDER OPERATOR - Community Resources: Yes PT to Evaluate: Yes PT to evaluate and provide a treatmnet plan to increase patient's mobility and strength. Wound Care: No IV Therapy: No RN Safety Evaluation: Yes RN to evaluate and create a plan of care that will produce positive outcomes. Palliative Treatment: No Palliative treatment and evaluate the need for hospice. Home Health Aide - Personal Care: Yes Home Health Aide to assist with any ADL's. Exam Vital Signs Temp Pulse Resp BP Pulse Ox O2 Del Method O2 Flow Rate 97.0 F 54 L 12 127/71 94 L CPAP 2 08/27/24 12:00 08/27/24 12:00 08/27/24 12:00 08/27/24 12:00 08/27/24 12:00 08/27/24 12:08/27/24 12:00 Narrative Exam Constitutional Alert, oriented x 3 and comfortable. Elderly male HEENT Vision grossly intact. Patent nares. Trachea midline Respiratory Chest normal on inspection and transmitted sounds, lungs clear to auscultation Cardiovascular S1 and S2 audible, RRR. No murmurs carotid bruit. No gross JVD. Abdominal Soft, obese and non tender to palpation in all quadrants. BS + Genitourinary No bladder tenderness, no flank pain. Normal to palpation Musculoskeletal Extremities tone within normal limits. No signs of lower extremity edema Skin Warm, dry and intact. No apparent lesions. Psychiatric Patient has good affect, is cooperative Neurological CN II - XII grossly intact. Extremity motor and sensation grossly intact. 1A: Level of Consciousness - Alert; keenly responsive + 0 1B: Ask Month and Age - Both Questions Right + 0 1C: Blink Eyes & Squeeze Hands - Performs Both Tasks + 0 2: Test Horizontal Extraocular Movements - Normal + 0 3: Test Visual Wooten - No Visual Loss + 0 4: Test Facial Palsy (Use Grimace if Obtunded) - Minor paralysis (flat nasolabial fold, smile asymmetry) + 1 5A: Test Left Arm Motor Drift - No Drift for 10 Seconds + 0 5B: Test Right Arm Motor Drift - No Drift for 10 Seconds + 0 6A: Test Left Leg Motor Drift - No Drift for 5 Seconds + 0 6B: Test Right Leg Motor Drift - No Drift for 5 Seconds + 0 7: Test Limb Ataxia (FNF/Heel-Oneil) - No Ataxia + 0 8: Test Sensation - Normal; No sensory loss + 0 9: Test Language/Aphasia - Normal; No aphasia + 0 10: Test Dysarthria - Normal + 0 11: Test Extinction/Inattention - No abnormality + 0 NIHSS Score: 1 NIHSS Free Text : The patient is completely cognitively intact. There really isn't a nasolabial fold but there is a slight asymmetry of his smile with slightly less prominence of the LEFT nasolabial fold than the right. He is adamant that this is his normal smile. Pre-Morbid Modified [place] Scale:3 Points = Moderate disability; requiring some help, but able to walk without assistance Discharge Plan Plan Patient Disposition: Xfer Skilled Ns Fac (SNF) Patient condition on transfer: Stable and Benefits outweigh risks Care Plan Goals: ? You have been started on an inhaler albuterol. Take 2 puffs up to 4 times a day as necessary for shortness of breath or wheezing. ? You have been started on an inhaler tiotropium. Take 2 puffs/day as needed for shortness of breath or wheezing. ? We have decreased your Coreg dose to 3.125 twice a day. This was because of your low heart rate. If you have any remaining 12.5 tablets at home you can cut them in quarter. ? We have started you on a medication gabapentin for your back pain. Take 2 tablets twice a day. ? We have started you on a medication losartan for your blood pressure and heart failure. Take 1 tablet once a day. ? We have started you on a medication spironolactone for your heart failure. Take 1 tablet once a day. ? We have started you on a medication pantoprazole for the inflammation in your stomach. Take 1 tablet once a day. ? We have completely discontinued your medication Xarelto due to your bleeding risk. If you have any remaining at home please discard. ? We have completely discontinued your medication lisinopril. If you have any remaining at home please discard. - Ideally we wanted to start you on Entresto for your heart failure, but patient expressed difficulties affording the medication ? You will have to restrict your daily liquid intake to 1.5 Litres / 50 ounces per day. This includes water, teas, coffees and soups. ? You will have to follow a low salt diet for the rest of your life. This means no Tristanian food or fast food. ? You will have to take your weight daily. If your weight increases by more than 3-5 pounds in 1-2 days, take an extra water pill that day. ? You will have to measure your blood pressure daily. If the top number is less than 100, do not take your blood pressure medications that day. ? Keep a log of your blood pressures to take to your primary doctor and insecticide supervisor. ? Continue taking amiodarone 1 tablet once a day. ? Continue taking atorvastatin 1 tablet a day. ? Continue taking your Lasix, 1 tablet twice a day. - Remove the Lidocaine patch at 10:35 pm tonight ? We recommend you wear a facemask when interacting with people for the next 2 days due to your COVID infection ? We recommend you follow-up with your primary care doctor for referral to a cnc router operator for formal lung function test. ? Recommend you follow-up with your insecticide supervisor, Dr. Mcdonald within 1 week to review your medications and blood pressure control. Also to assess for you starting SGLT2 - Follow up with your primary care physician within 1 week of discharge. If you do not have a primary care physician, please follow up with the [facility] Residents clinic ([phone]) ? If you experience any new, worsening or persistent symptoms either call your primary doctor, or dial 911 or present to the emergency department. Prescriptions/Referrals Prescriptions/Med Rec: New clopidogrel 75 mg Tablet 75 mg PO QDAY 30 Days Qty: 30 1RF gabapentin 100 mg Capsule 200 mg PO BID 30 Days Qty: 120 0RF losartan 50 mg tablet 50 mg PO QDAY 30 Days Qty: 30 0RF spironolactone 25 mg Tablet 25 mg PO DAILY 30 Days Qty: 30 1RF pantoprazole 40 mg Tablet,Delayed Release (Dr/Ec) 40 mg PO QDAY 30 Days Qty: 30 0RF albuterol sulfate [Ventolin HFA] 90 mcg/actuation HFA aerosol inhaler 2 puff inhalation QID PRN (Reason: shortness of breath or wheezing) 30 Days Qty: 6.7 3RF tiotropium bromide 1.25 mcg/actuation mist 2 puff inhalation Q24H PRN (Reason: shortness of breath or wheezing) Qty: 4 0RF carvedilol 3.125 mg tablet 3.125 mg PO BID 30 Days Qty: 60 2RF Rx Instructions: must administer with a meal/food Continued atorvastatin 40 mg tablet 40 mg PO QDAY Patient Comments: TAKE 1 TABLET BY MOUTH EVERY DAY furosemide 40 mg tablet 40 mg PO BID Patient Comments: TAKE 1 TABLET BY MOUTH TWICE A DAY amiodarone 200 mg tablet 200 mg PO QDAY Patient Comments: TAKE 1 TABLET BY MOUTH EVERY DAY Discontinued Xarelto 20 mg tablet 20 mg PO QDAY Rx Instructions: must administer with evening meal carvedilol 12.5 mg tablet 12.5 mg PO BID Patient Comments: TAKE 1 TABLET BY MOUTH TWICE A DAY lisinopril 5 mg tablet 5 mg PO QDAY Patient Comments: TAKE 1 TABLET BY MOUTH EVERY DAY Referrals: Rod Mcdonald MD [Physician] - No Primary/Family,Physician [Primary Care Provider] - Patient/Caregiver Discharge Instructions Discharge Activity: as per physical therapy Education Materials: COVID-19 Home Care, AFL/Afib, Coping with Heart Failure Print Language: Montenegrin Stand Alone Forms: Anna Award Info., Patient Portal Info Letter Discharge Order Discharge Orders: Discharge (Routine); Ordered 08/27/24 Ordered By: Boris Ramirez Quality Discharge Quality Measures VTE prophylaxis Attestestation MD Attestation I reviewed labs, imaging, EKG, home medications and prior available records. Face to face evaluation was performed by me. I have personally examined the patient and discussed assessment and plan with the IM team. I reviewed the resident note and agree with the plan with exceptions as below. COVID-19 Non-STEMI HFrEF, EF 30%, repeat 20% CAD status post CABG Coffee-ground emesis Upper GI bleed Small bowel ileus Status post EGD that showed gastritis Discussed with cardiology: Plavix only Stopped Xarelto Status post remdesivir Continue PPI Continue atorvastatin PT recommended SNF. He refused initially then agreed. He was pending bowel movement which she had on the morning of 08/19 and was discharged after Refused Entresto. Started losartan in addition to Coreg. Continue Lasix and spironolactone Time spent is 40 minutes. More than 50% of the time was spent on patient education and coordination of care.
--- NOTE | 2024-08-27 17:40 | PC.NURSE ---
Report given to Tricia MANAGER OF FINANCIAL REPORTING at [facility]. Notified Tricia of last pain medications and when to remove lidocaine patch at 10:35pm. Notified Dr. Ramirez of lidocaine patch going to snf, ok to go with lidocaine patch. Notified Dr. Ramirez about pain regimen at [facility], pt going to snf on gabapentin. Notified Tricia of parameters of carvedilol to hold if HR less than 55. Notified Tricia of follow up appts with primary, referral to pulm, and with cardio. 48hr med list sent in packet with code status. Report given to ambulance personnel at bedside.
== END 2024-08-27 17:50 | disposition skilled nursing facility (03) | DRG 177 ==
LOC: SERX 08-23 00:07 → SERHOLD 08-23 00:44 → S2NX 08-23 02:05
PROVIDERS: Specialist; Student in an Organized Health Care Education/Training Program; Admitting Provider Student in an Organized Health Care Education/Training Program; Emergency Provider Emergency Medicine; Visit Provider Student in an Organized Health Care Education/Training Program
PROC: 0DJ08ZZ Inspection of Upper Intestinal Tract, Via Natural or Artificial Opening Endoscopic (ICD-10-PCS; CPT 43239; principal; 2024-08-25 21:00)
DX: U07.1 COVID-19 (principal); I21.A1 Myocardial infarction type 2; J12.82 Pneumonia due to coronavirus disease 2019; K20.91 Esophagitis, unspecified with bleeding; K29.71 Gastritis, unspecified, with bleeding; I50.22 Chronic systolic (congestive) heart failure; I47.20 Ventricular tachycardia, unspecified; I47.10 Supraventricular tachycardia, unspecified; M62.82 Rhabdomyolysis; K56.7 Ileus, unspecified; J44.0 Chronic obstructive pulmonary disease with (acute) lower respiratory infection; Z68.41 Body mass index [BMI] 40.0-44.9, adult; I25.10 Atherosclerotic heart disease of native coronary artery without angina pectoris; I11.0 Hypertensive heart disease with heart failure; I48.0 Paroxysmal atrial fibrillation; M54.40 Lumbago with sciatica, unspecified side; G47.33 Obstructive sleep apnea (adult) (pediatric); R29.6 Repeated falls; R29.810 Facial weakness; E78.5 Hyperlipidemia, unspecified; M51.26 Other intervertebral disc displacement, lumbar region; E66.9 Obesity, unspecified; Z95.0 Presence of cardiac pacemaker; R74.01 Elevation of levels of liver transaminase levels; Z87.891 Personal history of nicotine dependence; W19.XXXA Unspecified fall, initial encounter; K14.8 Other diseases of tongue; Z66 Do not resuscitate; Z79.01 Long term (current) use of anticoagulants; Z79.899 Other long term (current) drug therapy; Z95.1 Presence of aortocoronary bypass graft; Z91.81 History of falling
CPT/HCPCS: 36415; 70450; 71045; 72125; 72128; 74018; 80053; 80061; 81001; 82270; 82550; 83036; 83735; 83880; 84100; 84443; 84484; 85014; 85018; 85025; 85610; 85730; 87040; 87081; 87205; 87811; 93005; 93306; 94640; 94667; 96374; 99291; A9270; J0248; J1100; J1200; J1938; J2250; J2270; J2405; J2470; J2550; J2765; J3010; J3490; J7050

== ENCOUNTER 2024-10-02 13:18 | Inpatient (IN) | payer MEDICARE, SELFPAY ==
[2024-10-02] VITALS (10 sets, daily range): BP systolic 115–171; BP diastolic 56–85; PULSE 17–84; RESP 14–93; TEMP 36.5–37.1; O2SAT 93–100; BMI 41.3; BMI 43.7
--- NOTE | 2024-10-02 13:30 | EKG_ITS ---
[facility] Test Date: 2024-10-02 Pat Name: DEMARCUS SINCLAIR Department: Room: - Gender: Male Briquetter Operator: : [id number] Requested By: ED Temporary Provider Order Number: [id number] Reading MD: ED Temporary Provider Measurements Intervals Dawn Rate: 66 P: -78 NM: 192 QRS: -29 QRSD: 177 T: 133 QT: 459 QTc: 483 Interpretive Statements SINUS RHYTHM WITH OCCASIONAL VENTRICULAR PREMATURE COMPLEXES LEFT BUNDLE BRANCH BLOCK [120+ ms QRS DURATION, 80+ ms Q/S IN V1/V2, 85+ ms R IN I/aVL/V5/V6] No previous ECG available for comparison /store/S0/[id number].pdf
--- NOTE | 2024-10-02 14:29 | XR_ITS ---
Examination: AP chest single view Technique one AP portable semiupright chest single view Date and time: October 02, 2024, 1450 hrs. Comparison August 23, 2024 Indications: Onset chest pain today. Findings: Moderate enlargement cardiac contour Cardiac leads satisfactory position Accentuation bronchovascular markings. No pulmonary edema or lobar pneumonia Impression: Bronchitis pattern
[2024-10-02 15:06] LABS: Basophils # (Auto) 0.1 Thou/mm3 (0.0-0.2); Basophils % (Auto) 0 % (0-2.5); Eosinophils # (Auto) 0.2 Thou/mm3 (0.0-0.5); Eosinophils % (Auto) 1 % (0-10); Hematocrit 35.2 % (41.0-53.0); Hemoglobin 11.6 g/dL (13.5-16.0); Immature Granulocytes Auto 0.15 Thou/mm3 (0.00-0.00); Lymphocytes # (Auto) 1.0 Thou/mm3 (1.0-4.8); Lymphocytes % (Auto) 5 % (10-50); Mean Corpuscular HGB Conc 33.0 g/dl (31.0-37.0); Mean Corpuscular Hemoglobin 31.6 pg (25.0-35.0); Mean Corpuscular Volume 96 fL (80-100); Monocytes # (Auto) 1.4 Thou/mm3 (0.0-0.8); Monocytes % (Auto) 7 % (0-12); Neutrophils # (Auto) 16.6 Thou/mm3 (1.8-7.7); Neutrophils % (Auto) 86 % (37-80); Nucleated Red Blood Cell # 0.00 Thou/mm3 (0.00-0.00); Nucleated Red Blood Cell % 0 /100 WBC (0); Platelet Count 413 Thou/mm3 (140-440); RDW Standard Deviation 47.4 fL (35.1-43.9); Red Blood Count 3.67 Miln/mm3 (4.50-5.90); White Blood Count 19.3 Thou/mm3 (3.8-10.6)
--- NOTE | 2024-10-02 15:06 | PD.EDCHEST ---
ED Chest Pain RME/HPI General Chief Complaint: Chest Pain Stated Complaint: CHEST PAIN Time Seen by Provider: 10/02/24 17:59 Arrival date/time: 10/02/24 13:18 Limitations: no limitations RME / HPI RME / HPI narrative: DR. BOOTH MAIN ED EVALUATION: 74 year old male presents to the Emergency Department [facility] with complaint of mid lower chest pain onset this morning. Pain is constant since this morning until now. Pain is described as aching and rated 5/10; movement exacerbates the pain. EMS gave nitro prior to arrival. He mentions that he was exposed to a virus a few days ago and now has a cough. He also complains of lower back pain but this is chronic. No shortness of breath or other symptoms reported at this time. 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 Bad osteoarthritis of bilateral knees but not a candidate for knee replacement due to heart problems. Social Hx: No tobacco, alcohol, or substance use. Related Data Home Medications ?Medication ?Instructions ?Recorded ?Confirmed Amiodarone Hcl 200 mg PO QDAY ##0 01/23/09 10/03/24 atorvastatin 40 mg tablet (Lipitor) 40 mg PO QDAY ##0 01/23/09 10/03/24 lisinopril 5 mg tablet 5 mg PO QDAY ##0 01/23/09 10/02/24 ascorbic acid (vitamin C) 1,000 mg 1 g PO QDAY 07/06/24 10/03/24 tablet (C-1000) furosemide 40 mg tablet 40 mg PO QAM 07/06/24 10/03/24 multivitamin (Daily Multi-Vitamin 1 tab PO QAM 07/06/24 10/03/24 tablet) amiodarone 200 mg tablet 200 mg PO QDAY 08/22/24 10/02/24 atorvastatin 40 mg tablet 40 mg PO QDAY 08/22/24 10/02/24 furosemide 40 mg tablet 40 mg PO BID 08/22/24 10/03/24 carvedilol 12.5 mg tablet 12.5 mg PO Q12H 10/02/24 10/02/24 Previous Rx's ?Medication ?Instructions ?Recorded clopidogrel 75 mg tablet 75 mg PO QDAY 30 days #30 tabs 08/26/24 doxycycline monohydrate 100 mg 100 mg PO BID bronchitis #20 caps 10/02/24 capsule Allergies Allergy/AdvReac Type Severity Reaction Status Date / Time Salicylates Allergy Severe RAPID Verified 10/02/24 13:26 HEART RATE Penicillins Allergy Mild Anaphylaxis Verified 10/02/24 22:32 Cephalosporins Allergy Unknown Verified 10/02/24 13:23 amoxicillin Allergy Verified 10/02/24 13:23 NSAIDS (Non-Steroidal Allergy Verified 10/02/24 13:23 Anti-Inflamma salicylates Allergy Verified 10/02/24 13:23 Review of Systems Review of Systems Systems Reviewed: All systems reviewed, normal except as documented Past Medical History Past Medical History NEUROLOGIC: Positive Migraine; Negative Neurological Disorders or Seizures CARDIAC: Positive Cardiac Disorders, Myocardial Infarction, Cardiac Arrhythmia, Atrial Fibrillation, Coronary Artery Disease, Hypercholesterolemia, Congestive Heart Failure, Edema and Hypertension RESPIRATORY: Positive Sleep Apnea; Negative Chronic Obstructive Pulmonary Disease (COPD) GASTROINTESTINAL: Positive Obesity; Negative Gastrointestinal Disorders GENITOURINARY: Negative Genitourinary Disorders or Renal Disease MUSCULOSKELETAL: Positive Musculoskeletal Disorders, Arthritis, Osteoporosis and Fractures ENDOCRINE: Negative Endocrine Disorders, Diabetes Mellitus Type 1 or Diabetes Mellitus Type 2 HEMATOLOGIC: Negative Blood Disorders PSYCHO/SOCIAL: Positive Depression and Anxiety OTHER HISTORY: Positive Hospitalization and Falls; Negative Autoimmune Disease, Blood Transfusions, Blood Transfusion Reaction (NA), Anesthesia Reactions or Cancer Surgical History SURGICAL: Positive Cardiac Surgery (TRIPLE BYPASS), Open Heart Surgery (2005), Pacemaker (PACEMAKER & ICD), Angiogram and Carotid Endarterectomy; Negative Joint Replacement or Neurologic Surgery Social History SMOKING STATUS: Never smoker ED Exam General Limitations: Present no limitations General appearance: Present alert, in no apparent distress, obese and other (wears glasses) Head Head exam: Present atraumatic, normocephalic and normal inspection Eye Eye exam: Present normal appearance, PERRL and EOMI ENT ENT exam: Present normal exam, normal oropharynx and mucous membranes moist Neck Neck exam: Present normal inspection, full ROM and trachea midline Chest Chest inspection: Present normal inspection and symmetric chest wall rise Respiratory Respiratory exam: Present normal lung sounds bilaterally Cardiovascular Cardiovascular exam: Present regular rate, normal rhythm and normal heart sounds; Absent systolic murmur or diastolic murmur Abdominal Exam Abdominal exam: Present soft, normal bowel sounds and other (obese) Extremities Exam Extremities exam: Present full ROM and pedal edema (bilateral 2+ pitting edema) Back Exam Back exam: Present normal inspection and full ROM Neurological Exam Neurological exam: Present alert, oriented X3 and CN II-XII intact Psychiatric Psychiatric exam: Present normal affect and normal mood Skin Skin exam: Present warm, dry, intact and normal color Course Quality Measures none Orders Category Date Time Status Bedside COVID-19 Antigen Test NOW Care 10/02/24 19:12 Completed Bedside COVID-19 Antigen Test NOW Care 10/02/24 19:22 Completed Bedside Influenza A&B Antigen Test NOW Care 10/02/24 19:22 Completed User Support Specialist STAT Care 10/02/24 14:29 Completed Continuous Pulse Oximetry ONCE Care 10/02/24 14:29 Completed Decision to Admit X1 Care 10/02/24 20:24 Active EKG (ED ONLY) *Do not use* NOW Care 10/02/24 13:30 Completed Insert IV STAT Care 10/02/24 14:29 Completed EKG (ED Only) Stat Exams 10/02/24 13:30 Draft XR chest 1V portable Stat Exams 10/02/24 14:29 Completed BNP [B-Type Natriuretic Peptide] Stat Lab 10/02/24 18:02 Completed CBC Stat Lab 10/02/24 14:47 Completed Comprehensive Metabolic Panel Stat Lab 10/02/24 14:47 Completed Creatine Kinase Stat Lab 10/02/24 14:47 Completed Magnesium Stat Lab 10/02/24 14:47 Completed Partial Thromboplastin Time Stat Lab 10/02/24 14:47 Completed Prothrombin Time with INR Stat Lab 10/02/24 14:47 Completed Troponin I Stat Lab 10/02/24 14:47 Completed Troponin I Stat Lab 10/02/24 18:02 Completed Urinalysis Stat Lab 10/02/24 17:49 Completed Urine Culture Stat Lab 10/02/24 17:49 Results Albuterol/Ipratr Rt Jacinta [Duoneb Rt Jacinta] Med 10/02/24 18:27 Discontinued 6 ml INH X1 ONE Aspirin Chew Med 10/02/24 14:29 Discontinued 324 mg PO X1 ONE Azithromycin Inj [Zithromax Inj] 500 mg Med 10/02/24 17:01 Discontinued Sodium Chloride 0.9% 250 ml [Ns] 250 ml IV X1 Levalbuterol Rt [Xopenex Rt Jacinta] Med 10/02/24 17:01 Discontinued 1.25 mg INH X1 ONE MethylPREDNISolone.* [SoluMEDROL Inj] Med 10/02/24 18:27 Discontinued 125 mg IVP X1 ONE Morphine Inj Med 10/02/24 15:11 Discontinued 2 mg IVP X1 ONE Morphine Inj Med 10/02/24 17:57 Discontinued 4 mg IVP X1 ONE Nitroglycerin Oint 2% [Nitro-paste Oint 2%] Med 10/02/24 14:29 Discontinued 1 inch TOP X1 ONE Ondansetron Inj [Zofran Inj] Med 10/02/24 14:29 Discontinued 4 mg IVP Q1HR PRN Sodium Chloride 0.9% 1000 ml [Ns] 1,000 ml Med 10/02/24 14:29 Discontinued IV 50 mls/hr Sodium Chloride Rt Jacinta 0.9% [NS Rt Jacinta 0.9%] Med 10/02/24 17:01 Active 3 ml INH PRN PRN cefTRIAXone/D5w 1gm IV premix [Rocephin/D5w 1gm IV Med 10/02/24 18:29 Discontinued premix] 1 gm in 50 ml IV X1 Oxygen Delivery NOW RT 10/02/24 14:29 Active Vital Signs Vital signs: Vital Signs Temperature 98.8 F 10/02/24 13:20 Pulse Rate 73 10/02/24 13:20 Respiratory Rate 19 10/02/24 13:20 Blood Pressure 115/58 L 10/02/24 13:20 Pulse Oximetry (%) 95 10/02/24 13:20 Oxygen Delivery Method Nasal Cannula 10/02/24 13:20 Oxygen Flow Rate 3 10/02/24 13:20 Chest Pain MDM Narrative MDM Narrative:: I, Shey Combs am scribing for and in the presence of Dr. Booth. First troponin was negative. CXR showed bronchitis. Will order repeat troponin. 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 Bad osteoarthritis of bilateral knees but not a candidate for knee replacement due to heart problems. How is presenting disease/condition affected by chronic disease/condition?: exacerbated by Evaluation data The following diagnostics were reviewed and interpreted by me:: lab results, radiology exam(s) and EKG tracing(s) (My interpretation: EKG performed at 1405 hours, sinus rhythm, rate 66, no acute changes, no STEMI) Lab and/or radiology exams considered but not ordered:: none Interpretation Summary: Procedure(s): XR chest 1V portable Accession Number(s): [id number] cc: Tan Booth MD; Percy Whitfield MD; Chidi Herrera MD~ Examination: AP chest single view Technique one AP portable semiupright chest single view Date and time: October 02, 2024, 1450 hrs. Comparison August 23, 2024 Indications: Onset chest pain today. Findings: Moderate enlargement cardiac contour Cardiac leads satisfactory position Accentuation bronchovascular markings. No pulmonary edema or lobar pneumonia Impression: Bronchitis pattern Dictated By: Chidi Herrera MD Medications / Prescriptions Medications or Prescriptions considered but not ordered:: none Medication administrations:: Medication Administration History Acetaminophen (Acetaminophen 325 Mg Tablet) 650 mg PO Q6H PRN PRN Reason: PAIN SCALE 1-3 (mild Stop: 11/01/24 21:43 Hydrocodone Bitart/Acetaminophen (Hydrocodone/Apap 5/325 Tablet) 1 tab PO Q6HR PRN PRN Reason: PAIN SCALE 4-6 (Moderate Stop: 10/07/24 23:49 Last Admin: 10/04/24 09:00 Dose: 1 tab Documented By: Admin: 10/03/24 00:15 Dose: 1 tab Documented By: LAINE Albuterol/Ipratropium (Albuterol/Ipratropium (Duoneb) Rt Jacinta 3 Ml Nebu) 3 ml INH Q6HRRT KARMEN Stop: 11/02/24 00:59 Last Admin: 10/05/24 00:51 Dose: 3 ml Documented By: Admin: 10/04/24 17:56 Dose: 3 ml Documented By: Admin: 10/04/24 12:38 Dose: 3 ml Documented By: Admin: 10/04/24 06:20 Dose: 3 ml Documented By: Admin: 10/04/24 01:54 Dose: 3 ml Documented By: Admin: 10/03/24 18:40 Dose: 3 ml Documented By: Admin: 10/03/24 12:46 Dose: 3 ml Documented By: Admin: 10/03/24 06:23 Dose: 3 ml Documented By: Admin: 10/03/24 03:20 Dose: Not Given Documented By: DAMIR Non-Admin Reason: Not In Room Amiodarone HCl (Amiodarone Hcl 200 Mg Tablet) 200 mg PO QDAY KARMEN Stop: 11/02/24 08:59 Last Admin: 10/04/24 09:01 Dose: 200 mg Documented By: Admin: 10/03/24 09:07 Dose: 200 mg Documented By: ERICKA Atorvastatin Calcium (Atorvastatin Calcium 20 Mg Tablet) 40 mg PO QDAY KARMEN Stop: 11/02/24 08:59 Last Admin: 10/04/24 09:00 Dose: 40 mg Documented By: Admin: 10/03/24 09:07 Dose: 40 mg Documented By: ERICKA Carvedilol (Carvedilol 12.5 Mg Tablet) 12.5 mg PO Q12H KARMEN Stop: 11/02/24 08:59 Last Admin: 10/04/24 20:47 Dose: 12.5 mg Documented By: Admin: 10/04/24 09:01 Dose: 12.5 mg Documented By: Admin: 10/03/24 20:23 Dose: 12.5 mg Documented By: BEVERLEY(2) Admin: 10/03/24 09:08 Dose: 12.5 mg Documented By: ERICKA Clopidogrel Bisulfate (Clopidogrel Bisulfate 75 Mg Tablet) 75 mg PO QDAY KARMEN Stop: 11/02/24 08:59 Last Admin: 10/04/24 09:01 Dose: 75 mg Documented By: Admin: 10/03/24 09:08 Dose: 75 mg Documented By: ERICKA Enoxaparin Sodium (Enoxaparin Sod Inj 40 Mg/0.4 Ml Syringe) 40 mg SC QDAY KARMEN Stop: 10/17/24 08:59 Last Admin: 10/04/24 10:55 Dose: Not Given Documented By: ERICKA Non-Admin Reason: Patient Refused Comments: MD avila aware Admin: 10/03/24 09:00 Dose: Not Given Documented By: ERICKA Non-Admin Reason: Patient Refused Furosemide (Furosemide Inj 10 Mg/Ml Vial 2 Ml) 40 mg IVP QDAY KARMEN Stop: 11/02/24 08:59 Last Admin: 10/04/24 09:02 Dose: 40 mg Documented By: Admin: 10/03/24 09:05 Dose: 40 mg Documented By: ERICKA Levofloxacin/Dextrose (Levaquin Ivpb) 750 mg in 150 mls @ 100 mls/hr IV QDAY@2100 KARMEN Stop: 10/10/24 20:59 Last Admin: 10/04/24 20:46 Dose: 100 mls/hr Documented By: Infusion: 10/03/24 21:54 Dose: Infused Documented By: Admin: 10/03/24 20:24 Dose: 100 mls/hr Documented By: BEVERLEY(2) Lisinopril (Lisinopril 2.5 Mg Tablet) 5 mg PO QDAY [facility] Stop: 11/02/24 08:59 Last Admin: 10/04/24 09:00 Dose: 5 mg Documented By: Admin: 10/03/24 09:06 Dose: 5 mg Documented By: ERICKA Morphine Sulfate (Morphine Sulf Inj 10 Mg/Ml Vial) 1 mg IVP Q6HR PRN PRN Reason: PAIN SCALE 7-10 (Severe Stop: 10/08/24 01:34 Last Admin: 10/05/24 05:27 Dose: 1 mg Documented By: Admin: 10/04/24 23:11 Dose: 1 mg Documented By: Admin: 10/04/24 17:07 Dose: 1 mg Documented By: Admin: 10/04/24 10:49 Dose: 1 mg Documented By: Admin: 10/04/24 04:42 Dose: 1 mg Documented By: BEVERLEY(2) Admin: 10/03/24 22:31 Dose: 1 mg Documented By: BEVERLEY(2) Admin: 10/03/24 16:01 Dose: 1 mg Documented By: Admin: 10/03/24 08:35 Dose: 1 mg Documented By: Admin: 10/03/24 02:27 Dose: 1 mg Documented By: GAUDENCIO Nitroglycerin (Nitroglycerin 0.4 Mg/Hr Patch.Td24) 0.4 mg TOP QDAY [facility] Stop: 11/02/24 08:59 Last Admin: 10/04/24 10:58 Dose: Not Given Documented By: ERICKA Non-Admin Reason: remove per MD Admin: 10/03/24 09:25 Dose: 0.4 mg Documented By: ERICKA Pantoprazole Sodium (Pantoprazole Inj 40 Mg Vial) 40 mg IVP BID KARMEN Stop: 11/02/24 20:59 Last Admin: 10/04/24 20:46 Dose: 40 mg Documented By: Admin: 10/04/24 09:02 Dose: 40 mg Documented By: Admin: 10/03/24 20:24 Dose: 40 mg Documented By: BEVERLEY(2) Sodium Chloride (Sodium Chloride Rt Jacinta 0.9% 3 Ml Nebu) 3 ml INH PRN PRN PRN Reason: SOLN Stop: 11/01/24 17:00 Last Admin: 10/02/24 18:45 Dose: 3 ml Documented By: Admin: 10/02/24 17:21 Dose: 3 ml Documented By: OLY Discontinued Medications Acetaminophen (Acetaminophen 325 Mg Tablet) 650 mg PO Q6H PRN PRN Reason: PAIN OR FEVER > 100.4 Stop: 11/01/24 21:43 Albuterol/Ipratropium (Albuterol/Ipratropium (Duoneb) Rt Jacinta 3 Ml Nebu) 6 ml INH X1 ONE Stop: 10/02/24 18:28 Last Admin: 10/02/24 18:45 Dose: 6 ml Documented By: DAMIR Aspirin (Aspirin 81 Mg Chew) 324 mg PO X1 ONE Stop: 10/02/24 14:30 Last Admin: 10/02/24 15:07 Dose: Not Given Documented By: FITO Non-Admin Reason: Patient Refused Comments: PT ALLERGIC TO SALICYLATES Carvedilol (Carvedilol 12.5 Mg Tablet) 12.5 mg PO Q12H KARMEN Stop: 11/01/24 22:14 Last Admin: 10/02/24 23:42 Dose: Not Given Documented By: LAINE Non-Admin Reason: Discontinued Sodium Chloride (Ns) 1,000 mls @ 50 mls/hr IV .Q20H ONE Stop: 10/03/24 10:28 Last Admin: 10/02/24 15:10 Dose: 50 mls/hr Documented By: FITO Azithromycin 500 mg/ Sodium (Chloride) 250 mls @ 250 mls/hr IV X1 ONE Stop: 10/02/24 18:00 Last Infusion: 10/02/24 18:52 Dose: Infused Documented By: Admin: 10/02/24 17:48 Dose: 250 mls/hr Documented By: GM Ceftriaxone Sodium/Dextrose (Rocephin/D5w 1gm Iv Premix) 1 gm in 50 mls @ 100 mls/hr IV X1 ONE Stop: 10/02/24 18:58 Last Infusion: 10/02/24 19:26 Dose: Infused Documented By: Admin: 10/02/24 18:55 Dose: 100 mls/hr Documented By: GM Azithromycin 500 mg/ Sodium (Chloride) 250 mls @ 250 mls/hr IV QDAY KARMEN Stop: 10/09/24 21:57 Last Admin: 10/02/24 23:12 Dose: Not Given Documented By: LAINE Non-Admin Reason: Discontinued Piperacillin Sod/Tazobactam (Sod 4.5 gm/ Sodium Chloride) 100 mls @ 200 mls/hr IV Q6HR [facility] Stop: 10/09/24 22:00 Levofloxacin/Dextrose (Levaquin Ivpb) 750 mg in 150 mls @ 100 mls/hr IV X1 ONE Stop: 10/03/24 00:44 Last Admin: 10/03/24 00:15 Dose: 100 mls/hr Documented By: LAINE Levalbuterol HCl (Levalbuterol Rt 1.25 Mg/0.5 Ml Nebu) 1.25 mg INH X1 ONE Stop: 10/02/24 17:02 Last Admin: 10/02/24 17:21 Dose: 1.25 mg Documented By: RG Methylprednisolone Sodium Succinate (Methylprednisolone Sod Succ 62.5 Mg/Ml 2ml Vial) 125 mg IVP X1 ONE Stop: 10/02/24 18:28 Last Admin: 10/02/24 18:49 Dose: 125 mg Documented By: GM Morphine Sulfate (Morphine Sulf Inj 10 Mg/Ml Vial) 2 mg IVP X1 ONE Stop: 10/02/24 15:12 Last Admin: 10/02/24 15:48 Dose: 2 mg Documented By: GM Comments: 10/10 BACK PAIN, 5/10 CHEST PAIN Morphine Sulfate (Morphine Sulf Inj 10 Mg/Ml Vial) 4 mg IVP X1 ONE Stop: 10/02/24 17:58 Last Admin: 10/02/24 18:05 Dose: 4 mg Documented By: GM Nitroglycerin (Nitroglycerin Oint 2% 1 Inch Packet) 1 inch TOP X1 ONE Stop: 10/02/24 14:30 Last Admin: 10/02/24 15:05 Dose: Not Given Documented By: FITO Non-Admin Reason: Cancelled by Provider Nitroglycerin (Nitroglycerin 0.4 Mg Subl Btl #25) 0.4 mg SL X1 ONE Stop: 10/03/24 08:41 Last Admin: 10/03/24 08:40 Dose: 1 dose Documented By: SINA Comments: 0.4 mg X1 Nitroglycerin (Nitroglycerin 0.4 Mg Subl Btl #25) Confirm Administered Dose 0.4 mg SL .STK-MED ONE Stop: 10/03/24 08:40 Last Admin: 10/03/24 08:47 Dose: Not Given Documented By: SINA Non-Admin Reason: Duplicate Medication on eMAR Ondansetron HCl (Ondansetron Inj 2 Mg/Ml Inj 2 Ml) 4 mg IVP Q1HR PRN PRN Reason: PERSISTENT NAUSEA OR VOMITING Ondansetron HCl (Ondansetron Inj 2 Mg/Ml Inj 2 Ml) 4 mg IVP Q6H PRN; Protocol PRN Reason: NAUSEA OR VOMITING Stop: 11/01/24 21:48 Pantoprazole Sodium (Pantoprazole Inj 40 Mg Vial) 40 mg IVP QDAY [facility] Stop: 11/02/24 08:59 Last Admin: 10/03/24 09:00 Dose: Not Given Documented By: ERICKA Non-Admin Reason: Patient Refused Pantoprazole Sodium (Pantoprazole Inj 40 Mg Vial) 40 mg IVP BID [facility] Stop: 11/02/24 20:59 Pantoprazole Sodium (Pantoprazole 40 Mg Tablet) 40 mg PO BID [facility]; Protocol Stop: 11/02/24 20:59 Pantoprazole Sodium (Pantoprazole Inj 40 Mg Vial) 40 mg IVP X1 ONE Stop: 10/03/24 15:19 Last Admin: 10/03/24 15:34 Dose: 40 mg Documented By: ERICKA Prednisone (Prednisone 20 Mg Tablet) 40 mg PO QDAY [facility] Stop: 10/09/24 21:57 Last Admin: 10/03/24 09:06 Dose: 40 mg Documented By: ERICKA Prednisone (Prednisone 20 Mg Tablet) 20 mg PO QDAY [facility] Stop: 11/03/24 08:59 Last Admin: 10/04/24 09:01 Dose: 20 mg Documented By: ERICKA Sodium Chloride (Sodium Chloride Rt 10% 15 Ml Nebu) 5 ml INH X1 ONE Stop: 10/02/24 21:55 Last Admin: 10/03/24 03:22 Dose: Not Given Documented By: PAR Non-Admin Reason: Discontinued see above Consultations Consultation(s) initiated? (list below): No Diagnosis Chest Pain Differential Diagnosis: stable angina, unstable angina pectoris, st elevation myocardial infarction, costochondritis, chest pain and biliary colic Most likely diagnosis given after review of the tests above:: So far... -Bronchitis -History of atrial fibrillation Admission Indicated Admission indicated?: not indicated Explain why admission is indicated or not indicated:: No final disposition plan at this time, still pending diagnostic tests. Patient signout to the institution librarian provider. Admission Request Was there a request for admission?: No Disposition Plan Disposition Plan: other (specify) (Patient signed out to Dr. Lee, pending repeat troponin and final disposition.) Discharge Plan Plan Patient Disposition: Admit Acute Care w/in Hospital Problem List Clinical Impression: Acute respiratory failure with hypoxia, CHF (congestive heart failure), Chest pain, Lower respiratory infection, UTI (urinary tract infection), Acute bronchospasm
[2024-10-02] MEDS: SODIUM CHLORIDE 0.9% 1000 ML 1,000 ML 50 ML IV (15:10)
[2024-10-02 15:24] LABS: INR 1.1 (0.9-1.3); Partial Thromboplastin Time 29.1 Seconds (22.0-36.0); Prothrombin Time 12.2 Seconds (9.0-12.2)
[2024-10-02 15:26] LABS: Alanine Aminotransferase 34 U/L (10-49); Albumin, Serum 3.9 gm/dL (3.4-4.8); Albumin/Globulin Ratio 1.3 (1.2-2.2); Alkaline Phosphatase 267 U/L (46-116); Anion Gap 7 (7-16); Aspartate Amino Transferase 27 U/L (0-34); BUN/Creatinine Ratio 19 Ratio (12-20); Bilirubin,Total 0.7 mg/dL (0.3-1.2); Blood Urea Nitrogen 23 mg/dL (9-23); Calcium 9.0 mg/dL (8.3-10.6); Calcium (Corrected) 9.1 mg/dL (8.5-10.1); Carbon Dioxide 29.6 mMol/L (20.0-31.0); Chloride 98 mMol/L (98-107); Creatine Kinase 45 U/L (34-171); Creatinine (Component) 1.2 mg/dL (0.6-1.3); Estimated Creatinine Clearance 77.9 mL/min (>60); Globulin 2.9 gm/dL (2.3-3.5); Glucose 110 mg/dL (74-106); Magnesium 2.0 mg/dL (1.6-2.6); Osmolality,Calculated 274 (275-295); Potassium 4.8 mMol/L (3.4-5.1); Sodium 135 mMol/L (136-145); Total Protein 6.8 gm/dL (5.7-8.2); Troponin I 0.027 ng/mL (0.0-0.045); eGFR > 60 See Note
[2024-10-02] MEDS: MORPHINE SULF INJ 10 MG/ML VIAL 2 MG IVP (15:48)
[2024-10-02] MEDS: LEVALBUTEROL RT 1.25 MG/0.5 ML NEBU INH (17:21)
[2024-10-02] MEDS: SODIUM CHLORIDE RT SOL 0.9% 3 ML NEBU INH ×2 (17:21→18:45)
[2024-10-02] MEDS: AZITHROMYCIN INJ 500 MG in SODIUM CHLORIDE 0.9% 250 ML 250 ML 250 MG IV (17:48)
[2024-10-02 18:05] LABS: Collection Type, Urine Clean Catch
[2024-10-02] MEDS: MORPHINE SULF INJ 10 MG/ML VIAL 4 MG IVP (18:05)
[2024-10-02 18:14] LABS: Bacteria,Urine Rare; Bilirubin,Urine Negative (Negative); Blood,Urine Trace (Negative); Clarity,Urine Turbid (Clear/Hazy); Color,Urine Lt-Yellow (Lt Yel-Yel); Glucose, Urine Negative (Negative); Hyaline Casts,Urine < 1 /hpf (0-1); Ketones,Urine Negative (Negative); Leukocyte Esterase,Urine Positive (Negative); Nitrite,Urine Negative (Negative); PH,Urine 6.5 (5.0-7.0); Protein,Urine Negative (Neg - Trace); RBC,Urine 8 /hpf (0-3); Specific Gravity,Urine 1.010 (1.001-1.035); Squamous Epithelial Cell,Urine < 1 /hpf (0-5); Urobilinogen,Urine Negative mg/dL (0.0-1.0); WBC,Urine 399 /hpf (0-5)
--- NOTE | 2024-10-02 18:19 | PD.EDADDENDU ---
Emergency Room Addendum <Jessy Alvarado - Last Filed: 10/02/24 20:27> Addendum Narrative: I took over the care from previous shift physician at 6 PM on 10/02/2024. See previous notes for complete H & P and ED course. I reviewed all diagnostic test results. Blood tests show repeat Troponin I is 0.030. Diagnoses include: Acute Bronchospam. Treatment here included Rocephin 1 G, Morphine 4 mg, SoluMedrol 125 mg, Albuterol/Ipratroprium Duoneb 6 mL. 1906: I discussed the case with our hospitalist. About the presentation and exam and diagnostics and treatments here. And need of further care in the hospital. Will accept the patient. Ravinder Lee MD <Ravinder Lee MD - Last Filed: 10/02/24 20:49> Addendum Narrative: I took over the care from previous shift physician at 6 PM on 10/02/2024. See previous notes for complete H & P and ED course. My exam is remarkable for hypoxia and severe bronchospasm. I reviewed all diagnostic test results. My interpretation of the EKG is sinus rhythm with no acute ST?T changes. My interpretation of the CXR is increased bronchial markings. Blood test remarkable for WBC 19.3 and BNP 255. UA showed positive leukocyte Estrace, 8 WBC, 399 WBC, and bacteria. Diagnoses include: Respiratory failure Lower respiratory infection UTI CHF Acute bronchospasm Chest pain Treatment here included Rocephin 1 G, Morphine 4 mg, SoluMedrol 125 mg, Albuterol/Ipratroprium Duoneb 6 mL. 1906: I discussed the case with our hospitalist. About the presentation and exam and diagnostics and treatments here. And need of further care in the hospital. Will accept the patient. Ravinder Lee MD
[2024-10-02 18:27] LABS: Troponin I 0.030 ng/mL (0.0-0.045)
[2024-10-02] MEDS: ALBUTEROL/IPRATROPIUM (Duoneb) RT SOL 3 ML NEBU 6 ML INH (18:45)
[2024-10-02] MEDS: MethylPREDNISolone SOD SUCC 62.5 MG/ML 2ML VIAL 125 MG IVP (18:49)
[2024-10-02 18:51] LABS: B-Type Natriuretic Peptide 255 pg/mL (0-100)
[2024-10-02] MEDS: cefTRIAXone/D5w 1gm IV premix 1 GM/50 ML BAG IV (18:55)
--- NOTE | 2024-10-02 21:36 | ESHP_ITS ---
Addendum History & Physical Addendum Date of report being addended: 10/02/24 Narrative: I Yousuf Munoz MD reviewed the note and agree with the resident's assessment & plan with exceptions as below. I have personally reviewed labs, imaging, home meds/prior records, examined the patient, formulated and discussed management plan with the IM team. A 74-year-old male with history of CAD s/p CABG, HFrEF with EF 20% s/p AICD, COPD, KIANA on CPAP recently discharged from SNF after rehab where he was admitted following COVID-pneumonia presenting to ED with acute onset of atypical chest pain along with shortness of breath and palpitations. He is noted to be hypoxic requiring supplemental oxygen and have significant leukocytosis, elevated BNP. Will admit for acute hypoxemic respiratory failure likely secondary to COPD exacerbation with possibility of healthcare associated pneumonia. Will start on cefepime, azithromycin, breathing treatment with albuterol, ipratropium and formoterol. Started on prednisone 40 mg daily. Continue CPAP therapy at night. Obtain inflammatory markers including procalcitonin. Continue diuresis with Lasix 40 mg IV daily, continue GDMT. Patient is not on anticoagulation for A- fib due to multiple episodes of GI bleed and had been on monotherapy with Plavix. Continue Plavix and high intensity statin therapy.
--- NOTE | 2024-10-02 22:02 | ESHP_ITS ---
<Statement entered by Yousuf Munoz MD - 10/03/24 06:50> I Yousfu Munoz MD reviewed the note and agree with the resident's assessment & plan with exceptions as below. I have personally reviewed labs, imaging, home meds/prior records, examined the patient, formulated and discussed management plan with the IM team. A 74-year-old male with history of CAD s/p CABG, HFrEF with EF 20% s/p AICD, COPD, KIANA on CPAP recently discharged from SNF after rehab where he was admitted following COVID-pneumonia presenting to ED with acute onset of atypical chest pain along with shortness of breath and palpitations. He is noted to be hypoxic requiring supplemental oxygen and have significant leukocytosis, elevated BNP. Will admit for acute hypoxemic respiratory failure likely secondary to COPD exacerbation with possibility of healthcare associated pneumonia. Will start on cefepime, azithromycin, breathing treatment with albuterol, ipratropium and formoterol. Started on prednisone 40 mg daily. Continue CPAP therapy at night. Obtain inflammatory markers including procalcitonin. Continue diuresis with Lasix 40 mg IV daily, continue GDMT. Patient is not on anticoagulation for A- fib due to multiple episodes of GI bleed and had been on monotherapy with Plavix. Continue Plavix and high intensity statin therapy. Documentation for date of: 10/02/24 HPI History of Present Illness History of present illness: Omar Bedolla is a 74-year-old male with a past medical history of CAD status post CABG, HFrEF (EF 20% on 07/2024), A-fib on Amio, hypertension, COPD not on home O2, KIANA on CPAP, depression and anxiety presented to the ED on 10/02 for chest discomfort and associated shortness of breath. States he was at [facility] for 6 weeks after being discharged in July and was actually discahrged from [facility] to home where he experienced sudden onset, sharp, substernal chest discomfort while sitting on his recliner chair with associated shortness of breath and nausea. Denies discomfort radiating to his arms, axilla, or neck. Of note, he is also been experiencing a nonproductive cough for the last week and had 1 episode of fever and chills but was noted to be during his episode of chest discomfort. Due to previously stated symptoms he decided to come to the ED. Also endorses urinary frequency that he contributes to his Lasix but also dysuria. In the ED, vital signs stable, afebrile, on 3 L nasal cannula saturating 95%. Troponins negative x 2, BNP mildly elevated at 255. EKG without ST changes or T wave abnormalities but LBBB noted. Previous EKG last month showed intraventricular conduction delay. WBC 19, UA showed turbid urine, 8 RBC, 400 WBC, rare bacteria, LE positive. CXR showed moderately enlarged cardiac contour, bronchitis pattern but no lobar pneumonia. Admitted for AHRF secondary to viral versus bacterial pneumonia versus COPD exacerbation, UTI. PMHx: CAD status post CABG, HFrEF (EF 20% on 07/2024), A-fib on Amio, hypertension, COPD not on home O2, KIANA on CPAP, depression and anxiety Medications: Coreg 12.5 mg twice daily, amiodarone 200 mg daily, lisinopril 5 mg daily, plavix 75 mg, lasix 40 mg BID, atorvastatin 40 mg daily SHx: Former smoker quit few years ago (30-pack year history), denies current alcohol use, daily marijuana use for sleep and pain PSHx: CABG x3 in 2005, debridement due to sternal infection following CABG, pacemaker/defibrillator implantation Allergies: NSAIDS, salicylates including aspirin, penicillins including amoxicillin, cephalosporins Review of Systems Review of Systems Systems Reviewed: All systems reviewed, normal except as documented Exam Vital Signs Temp Pulse Resp BP Pulse Ox O2 Del Method O2 Flow Rate 98.3 F 72 19 140/85 H 95 Nasal Cannula 2 10/02/24 21:10/02/24 21:10/02/24 21:10/02/24 21:10/02/24 21:10/02/24 21:10/02/24 20:57 Narrative Exam General: AOx3, no acute distress, able to speak full sentences HEENT: NC/AT, mucous membranes moist, bilateral sclera anicteric Cardiovascular: regular rate and rhythm, S1/S2 present, no murmurs appreciated Pulmonary: breathing comfortably on 2 L NC, wheezing appreciated in lower lung walter, coarse expiratory sounds in larger airways but no crackles appreciated Abdominal: soft, non-tender, non-distended, no rebound/guarding, normal bowel sounds present Musculoskeletal: normal ROM, no peripheral edema Skin: warm and dry, intact, no rashes Neuro: CN II-XII intact, no focal deficits Results: Labs 10/02/24 14:47 10/02/24 14:47 Labs: Short CBC 10/02/24 Range/Units 14:47 WBC 19.3 H (3.8-10.6) Thou/mm3 Hgb 11.6 L (13.5-16.0) g/dL Hct 35.2 L (41.0-53.0) % Plt Count 413 D (140-440) Thou/mm3 BMP 10/02/24 14:47 Sodium 135 L Potassium 4.8 Chloride 98 Carbon Dioxide 29.6 BUN 23 Creatinine 1.2 Glucose 110 H Calcium 9.0 Cardiac Enzymes 10/02/24 10/02/24 Range/Units 14:47 18:02 Total Creatine Kinase 45 D (34-171) U/L Troponin I 0.027 0.030 (0.0-0.045) ng/mL Liver Function 10/02/24 Range/Units 14:47 Total Bilirubin 0.7 (0.3-1.2) mg/dL AST 27 (0-34) U/L ALT 34 (10-49) U/L Alkaline Phosphatase 267 H (46-116) U/L Albumin 3.9 (3.4-4.8) gm/dL Urine 10/02/24 Range/Units 17:49 Urine Color Lt-Yellow (Lt Yel-Yel) Urine Clarity Turbid A (Clear/Hazy) Urine pH 6.5 (5.0-7.0) Ur Specific [place] 1.010 (1.001-1.035) Urine Protein Negative (Neg - Trace) Urine Glucose (UA) Negative (Negative) Quality Measures Quality Measures none Advance care planning discussed with:: patient Medications Home Medications and Allergies Home Medications ?Medication ?Instructions ?Recorded ?Confirmed ?Type Amiodarone Hcl 200 mg PO QDAY ##0 01/23/09 07/06/24 History atorvastatin 40 mg tablet (Lipitor) 40 mg PO QDAY ##0 01/23/09 History carvedilol phosphate 10 mg 10 mg PO QDAY ##0 01/23/09 07/06/24 History capsule,[id number] multiphase (Coreg CR) lisinopril 5 mg tablet 5 mg PO QDAY ##0 01/23/0925 History ascorbic acid (vitamin C) 1,000 mg 1 g PO QDAY 5 07/06/24 History tablet (C-1000) furosemide 40 mg tablet 40 mg PO QAM 07/06/24 History multivitamin (Daily Multi-Vitamin 1 tab PO QAM 5 07/06/24 History tablet) rivaroxaban 20 mg tablet (Xarelto) 20 mg PO QDAY 07/0607/06/24 History Held on 07/06/24. Instructions: Resume on 07/07/24. may resume xarelto tomorrow 07/08/2023 amiodarone 200 mg tablet 200 mg PO QDAY 08/22/2407/24 History atorvastatin 40 mg tablet 40 mg PO QDAY 08/22/2410/02 History furosemide 40 mg tablet 40 mg PO BID 08/22/24 History carvedilol 12.5 mg tablet 12.5 mg PO Q12H 10/02/2407/24 History Allergies Allergy/AdvReac Type Severity Reaction Status Date / Time Salicylates Allergy Severe RAPID Verified 10/02/24 13:26 HEART RATE Penicillins Allergy Mild Anaphylaxis Verified 10/02/24 22:32 Cephalosporins Allergy Unknown Verified 10/02/24 13:23 amoxicillin Allergy Verified 10/02/24 13:23 NSAIDS (Non-Steroidal Allergy Verified 10/02/24 13:23 Anti-Inflamma salicylates Allergy Verified 10/02/24 13:23 Visit Medications Sodium Chloride (Ns) 1,000 mls @ 50 mls/hr IV .Q20H ONE Stop: 10/03/24 10:28 Last Admin: 10/02/24 15:10 Dose: 50 mls/hr Sodium Chloride (Sodium Chloride Rt Jacinta 0.9% 3 Ml Nebu) 3 ml INH PRN PRN PRN Reason: SOLN Stop: 11/01/24 17:00 Last Admin: 10/02/24 18:45 Dose: 3 ml Discontinued Medications Albuterol/Ipratropium (Albuterol/Ipratropium (Duoneb) Rt Jacinta 3 Ml Nebu) 6 ml INH X1 ONE Stop: 10/02/24 18:28 Last Admin: 10/02/24 18:45 Dose: 6 ml Aspirin (Aspirin 81 Mg Chew) 324 mg PO X1 ONE Stop: 10/02/24 14:30 Last Admin: 10/02/24 15:07 Dose: Not Given Azithromycin 500 mg/ Sodium (Chloride) 250 mls @ 250 mls/hr IV X1 ONE Stop: 10/02/24 18:00 Last Infusion: 10/02/24 18:52 Dose: Infused Ceftriaxone Sodium/Dextrose (Rocephin/D5w 1gm Iv Premix) 1 gm in 50 mls @ 100 mls/hr IV X1 ONE Stop: 10/02/24 18:58 Last Infusion: 10/02/24 19:26 Dose: Infused Levalbuterol HCl (Levalbuterol Rt 1.25 Mg/0.5 Ml Nebu) 1.25 mg INH X1 ONE Stop: 10/02/24 17:02 Last Admin: 10/02/24 17:21 Dose: 1.25 mg Methylprednisolone Sodium Succinate (Methylprednisolone Sod Succ 62.5 Mg/Ml 2ml Vial) 125 mg IVP X1 ONE Stop: 10/02/24 18:28 Last Admin: 10/02/24 18:49 Dose: 125 mg Morphine Sulfate (Morphine Sulf Inj 10 Mg/Ml Vial) 2 mg IVP X1 ONE Stop: 10/02/24 15:12 Last Admin: 10/02/24 15:48 Dose: 2 mg Morphine Sulfate (Morphine Sulf Inj 10 Mg/Ml Vial) 4 mg IVP X1 ONE Stop: 10/02/24 17:58 Last Admin: 10/02/24 18:05 Dose: 4 mg Nitroglycerin (Nitroglycerin Oint 2% 1 Inch Packet) 1 inch TOP X1 ONE Stop: 10/02/24 14:30 Last Admin: 10/02/24 15:05 Dose: Not Given Ondansetron HCl (Ondansetron Inj 2 Mg/Ml Inj 2 Ml) 4 mg IVP Q1HR PRN PRN Reason: PERSISTENT NAUSEA OR VOMITING Assessment & Plan Plan Omar Bedolla is a 74-year-old male with a past medical history of CAD status post CABG, HFrEF (EF 20% on 07/2024), A-fib on Amio, hypertension, COPD not on home O2, KIANA on CPAP, depression and anxiety who was admitted for AHRF secondary to viral versus bacterial URI versus COPD exacerbation and urinary tract infection. #AHRF secondary to viral versus bacterial URI versus COPD exacerbation #Bronchitis seen on CXR #COPD exacerbation Initially presented with chest discomfort with associated shortness of breath but troponins negative x 2, EKG without ST or T wave abnormalities. Although BNP elevated, no lower extremity edema or crackles appreciated on exam so unlikely CHF exacerbation. Bronchitis seen on CXR with leukocytosis of 19, ESR elevated at 93, CRP, and Pro-Eric pending. Endorses 1 week of cough and subjective fever and chills after coming home from SNF, but no known sick contacts, thus fever URI versus COPD exacerbation. History of COPD but does not have home O2 or use inhalers. COVID and flu negative. ? Levofloxacin (10/03-), anaphylactic reactions to penicillins and cephalosporins ? Follow-up sputum cultures ? Scheduled DuoNebs ? Prednisone 40 mg p.o. daily ? Follow-up RSV ? Follow-up CRP and Pro-Eric #Urinary tract infection ? UA showed turbid urine, 8 RBC, 400 WBC, rare bacteria, LE positive. Endorses urinary frequency and dysuria. ? Levofloxacin as above ? Follow-up urine culture #HFrEF (EF 20% on 07/2024) status post [employer]-D Echo on 07/2024 showed EF 20%, severely decreased LV systolic function, mild to moderate , RV not well-visualized, TAPSE normal. BNP slightly elevated at 255 but not in acute exacerbation at this time. Discharged with Entresto and lisinopril stopped but states that he has not been taking Entresto and has only been taking lisinopril at SNF. ? Lasix 40 mg IV daily given EF 20%, can switch to p.o. as seen fit ? Coreg 12.5 mg p.o. twice daily ? Lisinopril 5 mg p.o. daily ? Strict I's and O's #Atrial fibrillation on amiodarone Previously on Xarelto but experienced upper GI bleed during previous admission and was discontinued on discharge. ? Amiodarone 20 mg daily #CAD status post CABG ? Plavix 75 mg p.o. daily ? Atorvastatin 40 mg p.o. daily #Hypertension ? Coreg and lisinopril as above #KIANA ? CPAP at night Hospital management: Disposition: AHRF on IV antibiotics Diet: Cardiac Lines: PIV DVT prophylaxis: Enoxaparin SC daily CODE STATUS: DNR ----- Plan discussed with attending physician Dr. Alexander Maxwell MD PGY-2 Internal Medicine
[2024-10-02 22:35] LABS: Sed Rate (ESR) 93 mm/hr (0-20)
[2024-10-03] VITALS (20 sets, daily range): BP systolic 119–157; BP diastolic 52–90; PULSE 67–98; RESP 14–24; TEMP 35.9–36.8; O2SAT 92–100; BMI 41.4
[2024-10-03 00:08] LABS: C-Reactive Protein 5.8 mg/dL (0.0-0.9); Procalcitonin 0.07 ng/ml (0.0-0.49); Troponin I 0.032 ng/mL (0.0-0.045)
[2024-10-03] MEDS: HYDROcodone/APAP 5/325 TABLET 1 TAB PO (00:15)
[2024-10-03] MEDS: LEVOFLOXACIN/D5W 750MG IVPB 750 MG/150 ML BAG 100 MG IV ×2 (00:15→20:24)
--- NOTE | 2024-10-03 00:16 | PC.RT ---
Sputum culture was collected and sent to LAB for analysis at this time.
[2024-10-03] MEDS: MORPHINE SULF INJ 10 MG/ML VIAL IVP ×4 (02:27→22:31)
[2024-10-03 03:58] LABS: Respiratory Syncytial Virus Ag Negative (Negative)
[2024-10-03 05:40] LABS: Basophils # (Auto) 0.0 Thou/mm3 (0.0-0.2); Basophils % (Auto) 0 % (0-2.5); Eosinophils # (Auto) 0.0 Thou/mm3 (0.0-0.5); Eosinophils % (Auto) 0 % (0-10); Hematocrit 34.8 % (41.0-53.0); Hemoglobin 11.7 g/dL (13.5-16.0); Immature Granulocytes Auto 0.16 Thou/mm3 (0.00-0.00); Lymphocytes # (Auto) 0.4 Thou/mm3 (1.0-4.8); Lymphocytes % (Auto) 2 % (10-50); Mean Corpuscular HGB Conc 33.6 g/dl (31.0-37.0); Mean Corpuscular Hemoglobin 31.4 pg (25.0-35.0); Mean Corpuscular Volume 93 fL (80-100); Monocytes # (Auto) 0.1 Thou/mm3 (0.0-0.8); Monocytes % (Auto) 0 % (0-12); Neutrophils # (Auto) 18.2 Thou/mm3 (1.8-7.7); Neutrophils % (Auto) 97 % (37-80); Nucleated Red Blood Cell # 0.00 Thou/mm3 (0.00-0.00); Nucleated Red Blood Cell % 0 /100 WBC (0); Platelet Count 393 Thou/mm3 (140-440); RDW Standard Deviation 46.5 fL (35.1-43.9); Red Blood Count 3.73 Miln/mm3 (4.50-5.90); White Blood Count 18.8 Thou/mm3 (3.8-10.6)
[2024-10-03 06:14] LABS: Alanine Aminotransferase 36 U/L (10-49); Albumin, Serum 3.9 gm/dL (3.4-4.8); Albumin/Globulin Ratio 1.4 (1.2-2.2); Alkaline Phosphatase 252 U/L (46-116); Anion Gap 11 (7-16); Aspartate Amino Transferase 25 U/L (0-34); BUN/Creatinine Ratio 19 Ratio (12-20); Bilirubin,Total 0.6 mg/dL (0.3-1.2); Blood Urea Nitrogen 21 mg/dL (9-23); Calcium 8.8 mg/dL (8.3-10.6); Calcium (Corrected) 8.9 mg/dL (8.5-10.1); Carbon Dioxide 27.0 mMol/L (20.0-31.0); Chloride 98 mMol/L (98-107); Creatinine (Component) 1.1 mg/dL (0.6-1.3); Estimated Creatinine Clearance 84.9 mL/min (>60); Globulin 2.8 gm/dL (2.3-3.5); Glucose 213 mg/dL (74-106); Magnesium 1.9 mg/dL (1.6-2.6); Osmolality,Calculated 280 (275-295); Phosphorous 2.7 mg/dL (2.4-5.1); Potassium 4.4 mMol/L (3.4-5.1); Sodium 136 mMol/L (136-145); Total Protein 6.7 gm/dL (5.7-8.2); eGFR > 60 See Note
[2024-10-03] MEDS: ALBUTEROL/IPRATROPIUM (Duoneb) RT SOL 3 ML NEBU INH ×3 (06:23→18:40)
[2024-10-03] MEDS: NITROGLYCERIN 0.4 MG SUBL BTL #25 SL (08:40)
--- NOTE | 2024-10-03 08:40 | EKG_ITS ---
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
[2024-10-03] MEDS: FUROSEMIDE INJ 10 MG/ML VIAL 2 ML 40 MG IVP (09:05)
[2024-10-03] MEDS: ATORVASTATIN CALCIUM 20 MG TABLET 40 MG PO (09:07)
[2024-10-03] MEDS: AMIODARONE HCL 200 MG TABLET PO (09:07)
[2024-10-03] MEDS: CLOPIDOGREL BISULFATE 75 MG TABLET PO (09:08)
[2024-10-03] MEDS: NITROGLYCERIN 0.4 MG/HR PATCH.TD24 TOP (09:25)
[2024-10-03 10:09] LABS: Troponin I 0.030 ng/mL (0.0-0.045)
--- NOTE | 2024-10-03 10:55 | PD.RESPRO ---
Documentation for date of: 10/03/24 Subjective Subjective Interval history: Patient evaluated bedside, had a rapid response earlier this morning due to chest pain. Patient complaining of 10/10 chest pain. Similar in character to chest pain on arrival, which resolved with nitroglycerin. Patient was given another sublingual nitroglycerin, which improved her chest pain to 5/10. Ordered nitro patch. Cardiology consult to on-call sleep lab technician Dr. Madrid placed, as patient's sleep lab technician Dr. Mcdonald is out of town for few days. Troponins were negative x 3 on arrival, repeat troponins after rapid response also negative. EKG similar to prior bundle-branch block changes, no acute ST elevation noted. Patient did notice worsening pain after meals, possibility of esophageal spasm cannot be ruled out, which will also improve after nitroglycerin. Ordered Protonix 40 mg twice daily. Exam Vital Signs Temp Pulse Resp BP Pulse Ox O2 Del Method O2 Flow Rate 98.2 F 90 15 135/77 H 95 Nasal Cannula 1 10/03/24 08:00 10/03/24 09:25 10/03/24 08:00 10/03/24 09:25 10/03/24 08:00 10/03/24 08:00 10/03/24 08:00 Narrative Exam General: AOx3, in mild distress due to pain, but able to speak full sentences, no tachypnea or tachycardia noted. HEENT: NC/AT, mucous membranes moist, bilateral sclera anicteric Cardiovascular: regular rate and rhythm, S1/S2 present, no murmurs appreciated Pulmonary: breathing comfortably on 2 L NC, wheezing appreciated in lower lung walter, coarse expiratory sounds in larger airways but no crackles appreciated Abdominal: soft, non-tender, non-distended, no rebound/guarding, normal bowel sounds present Musculoskeletal: normal ROM, no peripheral edema Skin: warm and dry, intact, no rashes Neuro: CN II-XII intact, no focal deficits Objective Labs 10/05/24 04:29 10/05/24 04:29 Labs: Laboratory Results - last 24 hr 10/02/24 10/02/24 10/02/24 14:47 17:49 18:02 WBC 19.3 H RBC 3.67 L Hgb 11.6 L Hct 35.2 L MCV 96 MCH 31.6 MCHC 33.0 RDW Std Deviation 47.4 H Plt Count 413 D Neut % (Auto) 86 H Lymph % (Auto) 5 L Gila % (Auto) 7 Eos % (Auto) 1 Baso % (Auto) 0 Neut # (Auto) 16.6 H Lymph # (Auto) 1.0 Gila # (Auto) 1.4 H Eos # (Auto) 0.2 Baso # (Auto) 0.1 Immature Gran # (Auto) 0.15 H Absolute Nucleated RBC 0.00 Immature Gran % 1 H Nucleated RBC % 0 ESR PT 12.2 INR 1.1 APTT 29.1 Sodium 135 L Potassium 4.8 Chloride 98 Carbon Dioxide 29.6 Anion Gap 7 BUN 23 Creatinine 1.2 Estim Creat Clear Calc 77.9 eGFR > 60 BUN/Creatinine Ratio 19 Glucose 110 H Calculated Osmolality 274 L Calcium 9.0 Corrected Calcium 9.1 Phosphorus Magnesium 2.0 Total Bilirubin 0.7 AST 27 ALT 34 Alkaline Phosphatase 267 H Total Creatine Kinase 45 D Troponin I 0.027 0.030 C-Reactive Prot, Quant B-Natriuretic Peptide 255 H Total Protein 6.8 Albumin 3.9 Globulin 2.9 Albumin/Globulin Ratio 1.3 Procalcitonin Ur Collection Type Clean Catch Urine Color Lt-Yellow Urine Clarity Turbid A Urine pH 6.5 Ur Specific [place] 1.010 Urine Protein Negative Urine Glucose (UA) Negative Urine Ketones Negative Urine Blood Trace Urine Nitrite Negative Urine Bilirubin Negative Urine Urobilinogen (Auto) Negative Ur Leukocyte Esterase Positive Urine RBC 8 H Urine WBC 399 H Ur Squamous Epith Cells < 1 Urine Bacteria Rare Hyaline Casts < 1 RSV Rapid 10/02/24 10/03/24 10/03/24 22:22 01:30 04:30 WBC 18.8 H RBC 3.73 L Hgb 11.7 L Hct 34.8 L MCV 93 MCH 31.4 MCHC 33.6 RDW Std Deviation 46.5 H Plt Count 393 Neut % (Auto) 97 H Lymph % (Auto) 2 L Gila % (Auto) 0 Eos % (Auto) 0 Baso % (Auto) 0 Neut # (Auto) 18.2 H Lymph # (Auto) 0.4 L Gila # (Auto) 0.1 Eos # (Auto) 0.0 Baso # (Auto) 0.0 Immature Gran # (Auto) 0.16 H Absolute Nucleated RBC 0.00 Immature Gran % 1 H Nucleated RBC % 0 ESR 93 H PT INR APTT Sodium 136 Potassium 4.4 Chloride 98 Carbon Dioxide 27.0 Anion Gap 11 BUN 21 Creatinine 1.1 Estim Creat Clear Calc 84.9 eGFR > 60 BUN/Creatinine Ratio 19 Glucose 213 H D Calculated Osmolality 280 Calcium 8.8 Corrected Calcium 8.9 Phosphorus 2.7 Magnesium 1.9 Total Bilirubin 0.6 AST 25 ALT 36 Alkaline Phosphatase 252 H Total Creatine Kinase Troponin I 0.032 C-Reactive Prot, Quant 5.8 H B-Natriuretic Peptide Total Protein 6.7 Albumin 3.9 Globulin 2.8 Albumin/Globulin Ratio 1.4 Procalcitonin 0.07 Ur Collection Type Urine Color Urine Clarity Urine pH Ur Specific [place] Urine Protein Urine Glucose (UA) Urine Ketones Urine Blood Urine Nitrite Urine Bilirubin Urine Urobilinogen (Auto) Ur Leukocyte Esterase Urine RBC Urine WBC Ur Squamous Epith Cells Urine Bacteria Hyaline Casts RSV Rapid Negative 10/03/24 09:00 WBC RBC Hgb Hct MCV MCH MCHC RDW Std Deviation Plt Count Neut % (Auto) Lymph % (Auto) Gila % (Auto) Eos % (Auto) Baso % (Auto) Neut # (Auto) Lymph # (Auto) Gila # (Auto) Eos # (Auto) Baso # (Auto) Immature Gran # (Auto) Absolute Nucleated RBC Immature Gran % Nucleated RBC % ESR PT INR APTT Sodium Potassium Chloride Carbon Dioxide Anion Gap BUN Creatinine Estim Creat Clear Calc eGFR BUN/Creatinine Ratio Glucose Calculated Osmolality Calcium Corrected Calcium Phosphorus Magnesium Total Bilirubin AST ALT Alkaline Phosphatase Total Creatine Kinase Troponin I 0.030 C-Reactive Prot, Quant B-Natriuretic Peptide Total Protein Albumin Globulin Albumin/Globulin Ratio Procalcitonin Ur Collection Type Urine Color Urine Clarity Urine pH Ur Specific [place] Urine Protein Urine Glucose (UA) Urine Ketones Urine Blood Urine Nitrite Urine Bilirubin Urine Urobilinogen (Auto) Ur Leukocyte Esterase Urine RBC Urine WBC Ur Squamous Epith Cells Urine Bacteria Hyaline Casts RSV Rapid Quality Measures Quality Measures none Advance care planning discussed with:: patient Assessment & Plan Assessment Current Active Medications: Generic Name Dose Route Start Last Admin Trade Name Freq PRN Reason Stop Dose Admin Acetaminophen 650 mg 10/03/24 00:03 Acetaminophen 325 Mg Tablet PO 11/01/24 21:43 Q6H PRN PAIN SCALE 1-3 (mild Hydrocodone Bitart/Acetaminophen 1 tab 10/02/24 23:50 10/03/24 00:15 Hydrocodone/Apap 5/325 Tablet PO 10/07/24 23:49 1 tab Q6HR PRN Administration PAIN SCALE 4-6 (Moderate Albuterol/Ipratropium 3 ml 10/03/24 01:00 10/03/24 06:23 Albuterol/Ipratropium (Duoneb) Rt Jacinta 3 Ml Nebu INH 11/02/24 00:59 3 ml Q6HRRT KARMEN Administration Amiodarone HCl 200 mg 10/03/24 09:00 10/03/24 09:07 Amiodarone Hcl 200 Mg Tablet PO 11/02/24 08:59 200 mg QDAY KARMEN Administration Atorvastatin Calcium 40 mg 10/03/24 09:00 10/03/24 09:07 Atorvastatin Calcium 20 Mg Tablet PO 11/02/24 08:59 40 mg QDAY KARMEN Administration Carvedilol 12.5 mg 10/03/24 09:00 10/03/24 09:08 Carvedilol 12.5 Mg Tablet PO 11/02/24 08:59 12.5 mg Q12H KARMEN Administration Clopidogrel Bisulfate 75 mg 10/03/24 09:00 10/03/24 09:08 Clopidogrel Bisulfate 75 Mg Tablet PO 11/02/24 08:59 75 mg QDAY KARMEN Administration Enoxaparin Sodium 40 mg 10/03/24 09:00 10/03/24 09:00 Enoxaparin Sod Inj 40 Mg/0.4 Ml Syringe SC 10/17/24 08:59 Not Given QDAY KARMEN Furosemide 40 mg 10/03/24 09:00 10/03/24 09:05 Furosemide Inj 10 Mg/Ml Vial 2 Ml IVP 11/02/24 08:59 40 mg QDAY KARMEN Administration Levofloxacin/Dextrose 750 mg in 150 mls @ 100 mls/hr 10/03/24 21:00 Levaquin Ivpb IV 10/10/24 20:59 QDAY@2100 KARMEN Lisinopril 5 mg 10/03/24 09:00 10/03/24 09:06 Lisinopril 2.5 Mg Tablet PO 11/02/24 08:59 5 mg QDAY KARMEN Administration Morphine Sulfate 1 mg 10/03/24 01:35 10/03/24 08:35 Morphine Sulf Inj 10 Mg/Ml Vial IVP 10/08/24 01:34 1 mg Q6HR PRN Administration PAIN SCALE 7-10 (Severe Nitroglycerin 0.4 mg 10/03/24 09:00 10/03/24 09:25 Nitroglycerin 0.4 Mg/Hr Patch.Td24 TOP 11/02/24 08:59 0.4 mg QDAY KARMEN Administration Pantoprazole Sodium 40 mg 10/03/24 21:00 Pantoprazole Inj 40 Mg Vial IVP 11/02/24 20:59 BID KARMEN Prednisone 20 mg 10/04/24 09:00 Prednisone 20 Mg Tablet PO 11/03/24 08:59 QDAY KARMEN Sodium Chloride 3 ml 10/02/24 17:01 10/02/24 18:45 Sodium Chloride Rt Jacinta 0.9% 3 Ml Nebu INH 11/01/24 17:00 3 ml PRN PRN Administration SOLN Plan Omar Bedolla is a 74-year-old male with a past medical history of CAD status post CABG, HFrEF (EF 20% on 07/2024), A-fib on Amio, hypertension, COPD not on home O2, KIANA on CPAP, depression and anxiety who was admitted for AHRF secondary to viral versus bacterial URI versus COPD exacerbation and urinary tract infection. #Atypical chest pain #GERD Patient evaluated bedside, had a rapid response earlier this morning due to chest pain. Patient complaining of 10/10 chest pain. Similar in character to chest pain on arrival, which resolved with nitroglycerin. Patient was given another sublingual nitroglycerin, which improved her chest pain to 5/10. Ordered nitro patch. Cardiology consult to on-call sleep lab technician Dr. Madrid placed, as patient's sleep lab technician Dr. Mcdonald is out of town for few days. Troponins were negative x 3 on arrival, repeat troponins after rapid response also negative. EKG similar to prior bundle-branch block changes, no acute ST elevation noted. Patient did notice worsening pain after meals, possibility of esophageal spasm cannot be ruled out, which will also improve after nitroglycerin. ? Ordered Protonix 40 mg twice daily. ? Decrease prednisone 20 mg daily #AHRF secondary to viral versus bacterial URI versus COPD exacerbation #Bronchitis seen on CXR #COPD exacerbation Initially presented with chest discomfort with associated shortness of breath but troponins negative x 2, EKG without ST or T wave abnormalities. Although BNP elevated, no lower extremity edema or crackles appreciated on exam so unlikely CHF exacerbation. Bronchitis seen on CXR with leukocytosis of 19, ESR elevated at 93, CRP, and Pro-Eric pending. Endorses 1 week of cough and subjective fever and chills after coming home from SNF, but no known sick contacts, thus fever URI versus COPD exacerbation. History of COPD but does not have home O2 or use inhalers. COVID and flu negative. ? Levofloxacin (10/03-), anaphylactic reactions to penicillins and cephalosporins ? Follow-up sputum cultures ? Scheduled DuoNebs ? Prednisone 20 mg p.o. daily ? Follow-up RSV ? Follow-up CRP and Pro-Eric #Urinary tract infection ? UA showed turbid urine, 8 RBC, 400 WBC, rare bacteria, LE positive. Endorses urinary frequency and dysuria. ? Levofloxacin as above ? Follow-up urine culture #HFrEF (EF 20% on 07/2024) status post [employer]-D Echo on 07/2024 showed EF 20%, severely decreased LV systolic function, mild to moderate , RV not well-visualized, TAPSE normal. BNP slightly elevated at 255 but not in acute exacerbation at this time. Discharged with Entresto and lisinopril stopped but states that he has not been taking Entresto and has only been taking lisinopril at SNF. ? Lasix 40 mg IV daily given EF 20%, can switch to p.o. as seen fit ? Coreg 12.5 mg p.o. twice daily ? Lisinopril 5 mg p.o. daily ? Strict I's and O's #Atrial fibrillation on amiodarone Previously on Xarelto but experienced upper GI bleed during previous admission and was discontinued on discharge. ? Amiodarone 200 mg daily #CAD status post CABG ? Plavix 75 mg p.o. daily ? Atorvastatin 40 mg p.o. daily #Hypertension ? Coreg and lisinopril as above #KIANA ? CPAP at night Hospital management: Disposition: AHRF on IV antibiotics Diet: Cardiac Lines: PIV DVT prophylaxis: Enoxaparin SC daily CODE STATUS: DNR ----- Plan discussed with attending physician Dr. Gris Duran PG3
--- NOTE | 2024-10-03 12:22 | PC.PT ---
PT approached patient at 9:30 for PT eval. Patient reported that he just discharged from SNF and worked with PT there on transferring to his chair from his electric scooter with a slide board. Patient has not ambulated in many years and feels like there is no more physical therapy that he needs at this time. PT educated patient that we could perform more exercises to improve strength but he reported he has tried PT multiple times before and it does not work for him. PT informed patient that if he changes his mind to contact the nurse and they will have new orders placed. Will cancel PT evaluation at this time.
--- NOTE | 2024-10-03 14:16 | ESCONSULT_ITS ---
<Statement entered by Mena Madrid MD - 10/03/24 18:57> I personally examined evaluated this patient who is normally Dr. Ogden patient who has longstanding history of CAD status bypass surgery 2005 ischemic cardiomyopathy ejection fraction 20% status post ICD implantation came to the hospital epigastric pain GI symptoms related to the food appears to be clinically doing better now though nitro improved symptoms appears to be noncardiac pain all enzymes are negative in fact previous admission enzymes are elevated this time is not evaluated EKG unremarkable. 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 HPI Data of Consult Requesting Physician: Yousuf Munoz MD Admitting Provider: Yousuf Munoz MD Attending Provider: Yousuf Munoz MD Primary Care Provider: Percy Whitfield MD Consult Narrative Reason for consult: chest pain History of present illness: A 74-year-old male with significant past medical history of hypertension, CAD status post CABG [2005], s/p PCI [2006], V. tach/V-fib after CABG s/p AICD, Right carotid stent placement [2010] atrial fibrillation, KIANA on CPAP, depression and anxiety presented to the hospital with chief complaints of chest discomfort since 1 day. Patient is discharged from [facility] after 6 weeks of rehabilitation on the day of admission. He uses electrical scooter to move around the house and after having his tea, he tried to sit in his recliner during which he felt discomfort in the upper abdomen and lower chest, associated with mild shortness of breath, sweating and denied palpitations, radiation of the pain, PND, orthopnea, pedal edema, nausea, vomitings, recent sick contacts. Endorsed that he also felt warm, but no documented episode of fever. Also endorsed that he had similar episodes in the past, especially after having meals. Reported that his anticoagulation was held in July 2024 in view of recurrent GI bleed. In view of heartburn and chest pain, patient came to ED for further evaluation. In the ED, vitals are stable and saturating 95% with 3 L oxygen. Labs are significant for elevated WBC, troponin is 0.027, BNP 255. Chest x-ray showed no significant opacities. Tested negative for COVID, influenza A and B. Received nitroglycerin and morphine in the ED following which chest pain resolved, per patient Past medical history: Hypertension, CAD, atrial fibrillation, COPD, Chronic back pain Past surgical history: CABG, PCI Social history: Remote history of smoking for 30 years, half pack a day, social drinker, smokes marijuana every day during night to promote his sleep and to relax, denies other illicit drug abuse Cardiology is consulted in view of chest pain cc:: cc: Yousuf Munoz MD Review of Systems Review of Systems Systems Reviewed: All systems reviewed, normal except as documented Past Medical History Past Medical History NEUROLOGIC: Positive Migraine; Negative Neurological Disorders or Seizures CARDIAC: Positive Cardiac Disorders, Myocardial Infarction, Cardiac Arrhythmia, Atrial Fibrillation, Coronary Artery Disease, Hypercholesterolemia, Congestive Heart Failure, Edema and Hypertension RESPIRATORY: Positive Sleep Apnea; Negative Chronic Obstructive Pulmonary Disease (COPD) GASTROINTESTINAL: Positive Obesity; Negative Gastrointestinal Disorders GENITOURINARY: Negative Genitourinary Disorders or Renal Disease MUSCULOSKELETAL: Positive Musculoskeletal Disorders, Arthritis, Osteoporosis and Fractures ENDOCRINE: Negative Endocrine Disorders, Diabetes Mellitus Type 1 or Diabetes Mellitus Type 2 HEMATOLOGIC: Negative Blood Disorders PSYCHO/SOCIAL: Positive Depression and Anxiety OTHER HISTORY: Positive Hospitalization and Falls; Negative Autoimmune Disease, Blood Transfusions, Blood Transfusion Reaction (NA), Anesthesia Reactions or Cancer Surgical History SURGICAL: Positive Cardiac Surgery (TRIPLE BYPASS), Open Heart Surgery (2005), Pacemaker (PACEMAKER & ICD), Angiogram and Carotid Endarterectomy; Negative Joint Replacement or Neurologic Surgery Social History SMOKING STATUS: Never smoker Exam Vital Signs Temp Pulse Resp BP Pulse Ox O2 Del Method O2 Flow Rate 97.8 F 98 24 H 157/87 H 96 Nasal Cannula 2 10/03/24 13:02 10/03/24 13:02 10/03/24 13:02 10/03/24 13:02 10/03/24 13:02 10/03/24 12:00 10/03/24 12:49 Narrative Exam General: Awake. HEENT: Normocephalic, atraumatic, mucous membranes moist. Heart: Regular rate and rhythm, no murmurs. Lungs: Clear to auscultation with no wheezing or crackles. Abdomen: Soft, nondistended, nontender, positive bowel sounds. ?No guarding or rebound tenderness. Neurologic: Alert and oriented x3, no gross neurological deficit, and patient able to move all 4 extremities. Extremities: No edema. Skin: No rash or ecchymoses. Results Labs 10/03/24 04:30 10/03/24 04:30 Labs: Short CBC 10/02/24 10/03/24 Range/Units 14:47 04:30 WBC 19.3 H 18.8 H (3.8-10.6) Thou/mm3 Hgb 11.6 L 11.7 L (13.5-16.0) g/dL Hct 35.2 L 34.8 L (41.0-53.0) % Plt Count 413 D 393 (140-440) Thou/mm3 BMP 10/02/24 10/03/24 14:47 04:30 Sodium 135 L 136 Potassium 4.8 4.4 Chloride 98 98 Carbon Dioxide 29.6 27.0 BUN 23 21 Creatinine 1.2 1.1 Glucose 110 H 213 H D Calcium 9.0 8.8 Cardiac Enzymes 10/02/24 10/02/24 10/02/24 Range/Units 14:47 18:02 22:22 Total Creatine Kinase 45 D (34-171) U/L Troponin I 0.027 0.030 0.032 (0.0-0.045) ng/mL 10/03/24 Range/Units 09:00 Total Creatine Kinase (34-171) U/L Troponin I 0.030 (0.0-0.045) ng/mL Liver Function 10/02/24 10/03/24 Range/Units 14:47 04:30 Total Bilirubin 0.7 0.6 (0.3-1.2) mg/dL AST 27 25 (0-34) U/L ALT 34 36 (10-49) U/L Alkaline Phosphatase 267 H 252 H (46-116) U/L Albumin 3.9 3.9 (3.4-4.8) gm/dL Urine 10/02/24 Range/Units 17:49 Urine Color Lt-Yellow (Lt Yel-Yel) Urine Clarity Turbid A (Clear/Hazy) Urine pH 6.5 (5.0-7.0) Ur Specific [place] 1.010 (1.001-1.035) Urine Protein Negative (Neg - Trace) Urine Glucose (UA) Negative (Negative) Quality Measures Quality Measures none Advance care planning discussed with:: patient Medications Home Medications and Allergies Home Medications ?Medication ?Instructions ?Recorded ?Confirmed ?Type Amiodarone Hcl 200 mg PO QDAY ##0 01/23/09 10/03/24 History atorvastatin 40 mg tablet (Lipitor) 40 mg PO QDAY ##0 01/23/09 10/03/24 History lisinopril 5 mg tablet 5 mg PO QDAY ##0 01/23/09 History ascorbic acid (vitamin C) 1,000 mg 1 g PO QDAY 5 10/03/24 History tablet (C-1000) furosemide 40 mg tablet 40 mg PO QAM 07/06/24 History multivitamin (Daily Multi-Vitamin 1 tab PO QAM 5 10/03/24 History tablet) amiodarone 200 mg tablet 200 mg PO QDAY 08/22/2407/24 History atorvastatin 40 mg tablet 40 mg PO QDAY 08/22/2410/02 History furosemide 40 mg tablet 40 mg PO BID 08/22/24 History carvedilol 12.5 mg tablet 12.5 mg PO Q12H 10/02/2407/24 History Allergies Allergy/AdvReac Type Severity Reaction Status Date / Time Salicylates Allergy Severe RAPID Verified 10/02/24 13:26 HEART RATE Penicillins Allergy Mild Anaphylaxis Verified 10/02/24 22:32 Cephalosporins Allergy Unknown Verified 10/02/24 13:23 amoxicillin Allergy Verified 10/02/24 13:23 NSAIDS (Non-Steroidal Allergy Verified 10/02/24 13:23 Anti-Inflamma salicylates Allergy Verified 10/02/24 13:23 Visit Medications Acetaminophen (Acetaminophen 325 Mg Tablet) 650 mg PO Q6H PRN PRN Reason: PAIN SCALE 1-3 (mild Stop: 11/01/24 21:43 Hydrocodone Bitart/Acetaminophen (Hydrocodone/Apap 5/325 Tablet) 1 tab PO Q6HR PRN PRN Reason: PAIN SCALE 4-6 (Moderate Stop: 10/07/24 23:49 Last Admin: 10/03/24 00:15 Dose: 1 tab Albuterol/Ipratropium (Albuterol/Ipratropium (Duoneb) Rt Ajcinta 3 Ml Nebu) 3 ml INH Q6HRRT KARMEN Stop: 11/02/24 00:59 Last Admin: 10/03/24 12:46 Dose: 3 ml Amiodarone HCl (Amiodarone Hcl 200 Mg Tablet) 200 mg PO QDAY [facility] Stop: 11/02/24 08:59 Last Admin: 10/03/24 09:07 Dose: 200 mg Atorvastatin Calcium (Atorvastatin Calcium 20 Mg Tablet) 40 mg PO QDAY [facility] Stop: 11/02/24 08:59 Last Admin: 10/03/24 09:07 Dose: 40 mg Carvedilol (Carvedilol 12.5 Mg Tablet) 12.5 mg PO Q12H [facility] Stop: 11/02/24 08:59 Last Admin: 10/03/24 09:08 Dose: 12.5 mg Clopidogrel Bisulfate (Clopidogrel Bisulfate 75 Mg Tablet) 75 mg PO QDAY [facility] Stop: 11/02/24 08:59 Last Admin: 10/03/24 09:08 Dose: 75 mg Enoxaparin Sodium (Enoxaparin Sod Inj 40 Mg/0.4 Ml Syringe) 40 mg SC QDAY [facility] Stop: 10/17/24 08:59 Last Admin: 10/03/24 09:00 Dose: Not Given Furosemide (Furosemide Inj 10 Mg/Ml Vial 2 Ml) 40 mg IVP QDAY [facility] Stop: 11/02/24 08:59 Last Admin: 10/03/24 09:05 Dose: 40 mg Levofloxacin/Dextrose (Levaquin Ivpb) 750 mg in 150 mls @ 100 mls/hr IV QDAY@2100 [facility] Stop: 10/10/24 20:59 Lisinopril (Lisinopril 2.5 Mg Tablet) 5 mg PO QDAY [facility] Stop: 11/02/24 08:59 Last Admin: 10/03/24 09:06 Dose: 5 mg Morphine Sulfate (Morphine Sulf Inj 10 Mg/Ml Vial) 1 mg IVP Q6HR PRN PRN Reason: PAIN SCALE 7-10 (Severe Stop: 10/08/24 01:34 Last Admin: 10/03/24 08:35 Dose: 1 mg Nitroglycerin (Nitroglycerin 0.4 Mg/Hr Patch.Td24) 0.4 mg TOP QDAY [facility] Stop: 11/02/24 08:59 Last Admin: 10/03/24 09:25 Dose: 0.4 mg Pantoprazole Sodium (Pantoprazole 40 Mg Tablet) 40 mg PO BID [facility]; Protocol Stop: 11/02/24 20:59 Prednisone (Prednisone 20 Mg Tablet) 20 mg PO QDAY [facility] Stop: 11/03/24 08:59 Sodium Chloride (Sodium Chloride Rt Jacinta 0.9% 3 Ml Nebu) 3 ml INH PRN PRN PRN Reason: SOLN Stop: 11/01/24 17:00 Last Admin: 10/02/24 18:45 Dose: 3 ml Discontinued Medications Acetaminophen (Acetaminophen 325 Mg Tablet) 650 mg PO Q6H PRN PRN Reason: PAIN OR FEVER > 100.4 Stop: 11/01/24 21:43 Albuterol/Ipratropium (Albuterol/Ipratropium (Duoneb) Rt Jacinta 3 Ml Nebu) 6 ml INH X1 ONE Stop: 10/02/24 18:28 Last Admin: 10/02/24 18:45 Dose: 6 ml Aspirin (Aspirin 81 Mg Chew) 324 mg PO X1 ONE Stop: 10/02/24 14:30 Last Admin: 10/02/24 15:07 Dose: Not Given Carvedilol (Carvedilol 12.5 Mg Tablet) 12.5 mg PO Q12H KARMEN Stop: 11/01/24 22:14 Last Admin: 10/02/24 23:42 Dose: Not Given Sodium Chloride (Ns) 1,000 mls @ 50 mls/hr IV .Q20H ONE Stop: 10/03/24 10:28 Last Admin: 10/02/24 15:10 Dose: 50 mls/hr Azithromycin 500 mg/ Sodium (Chloride) 250 mls @ 250 mls/hr IV X1 ONE Stop: 10/02/24 18:00 Last Infusion: 10/02/24 18:52 Dose: Infused Ceftriaxone Sodium/Dextrose (Rocephin/D5w 1gm Iv Premix) 1 gm in 50 mls @ 100 mls/hr IV X1 ONE Stop: 10/02/24 18:58 Last Infusion: 10/02/24 19:26 Dose: Infused Azithromycin 500 mg/ Sodium (Chloride) 250 mls @ 250 mls/hr IV QDAY KARMEN Stop: 10/09/24 21:57 Last Admin: 10/02/24 23:12 Dose: Not Given Piperacillin Sod/Tazobactam (Sod 4.5 gm/ Sodium Chloride) 100 mls @ 200 mls/hr IV Q6HR KARMEN Stop: 10/09/24 22:00 Levofloxacin/Dextrose (Levaquin Ivpb) 750 mg in 150 mls @ 100 mls/hr IV X1 ONE Stop: 10/03/24 00:44 Last Admin: 10/03/24 00:15 Dose: 100 mls/hr Levalbuterol HCl (Levalbuterol Rt 1.25 Mg/0.5 Ml Nebu) 1.25 mg INH X1 ONE Stop: 10/02/24 17:02 Last Admin: 10/02/24 17:21 Dose: 1.25 mg Methylprednisolone Sodium Succinate (Methylprednisolone Sod Succ 62.5 Mg/Ml 2ml Vial) 125 mg IVP X1 ONE Stop: 10/02/24 18:28 Last Admin: 10/02/24 18:49 Dose: 125 mg Morphine Sulfate (Morphine Sulf Inj 10 Mg/Ml Vial) 2 mg IVP X1 ONE Stop: 10/02/24 15:12 Last Admin: 10/02/24 15:48 Dose: 2 mg Morphine Sulfate (Morphine Sulf Inj 10 Mg/Ml Vial) 4 mg IVP X1 ONE Stop: 10/02/24 17:58 Last Admin: 10/02/24 18:05 Dose: 4 mg Nitroglycerin (Nitroglycerin Oint 2% 1 Inch Packet) 1 inch TOP X1 ONE Stop: 10/02/24 14:30 Last Admin: 10/02/24 15:05 Dose: Not Given Nitroglycerin (Nitroglycerin 0.4 Mg Subl Btl #25) 0.4 mg SL X1 ONE Stop: 10/03/24 08:41 Last Admin: 10/03/24 08:40 Dose: 1 dose Ondansetron HCl (Ondansetron Inj 2 Mg/Ml Inj 2 Ml) 4 mg IVP Q1HR PRN PRN Reason: PERSISTENT NAUSEA OR VOMITING Ondansetron HCl (Ondansetron Inj 2 Mg/Ml Inj 2 Ml) 4 mg IVP Q6H PRN; Protocol PRN Reason: NAUSEA OR VOMITING Stop: 11/01/24 21:48 Pantoprazole Sodium (Pantoprazole Inj 40 Mg Vial) 40 mg IVP QDAY [facility] Stop: 11/02/24 08:59 Last Admin: 10/03/24 09:00 Dose: Not Given Pantoprazole Sodium (Pantoprazole Inj 40 Mg Vial) 40 mg IVP BID [facility] Stop: 11/02/24 20:59 Prednisone (Prednisone 20 Mg Tablet) 40 mg PO QDAY [facility] Stop: 10/09/24 21:57 Last Admin: 10/03/24 09:06 Dose: 40 mg Sodium Chloride (Sodium Chloride Rt 10% 15 Ml Nebu) 5 ml INH X1 ONE Stop: 10/02/24 21:55 Last Admin: 10/03/24 03:22 Dose: Not Given Assessment & Plan Plan A 74-year-old male with significant past medical history of hypertension, CAD status post CABG [2005], s/p PCI [2006], V. tach/V-fib after CABG s/p AICD, Right carotid stent placement [2010] atrial fibrillation, KIANA on CPAP, depression and anxiety presented to the hospital with chief complaints of chest discomfort since 1 day. # Chest pain, likely noncardiac # History of HFrEF, EF 20% s/p AICD - Patient presented to the hospital with chief complaints of chest discomfort, mainly in the lower chest, midline and upper abdomen - Associated with sweating and denies radiation, palpitations, short of breath, pedal edema - Endorsed that he had similar complaints in the past, especially after having meals - Endorsed that his chest pain relieved after receiving medications in the ED, nitroglycerin and morphine - Does not ambulate by himself at baseline due to bad osteoarthritis. Uses electric scooter for moving around and recently discharged from rehab - On physical examination, patient does not appear to be in heart failure - Vitals are stable at the time of admission - Troponins trend since admission - 0.027 >> 0.03 >> 0.032 >>0.03 - BNP is 255 at the time of admission - EKG showed normal sinus rhythm with no ST and T wave changes with occasional ectopics. - ECHO on 07/2024 - LV appears to be normal in size. The Estimated EF 20 %. Global left ventricular systolic function is severely decreased. The RV not well visualized, TAPSE normal. Mild to moderate . Plan - Patient is currently asymptomatic at the time of examination - Recommend to continue pantoprazole - Consult gastroenterology if needed to rule out esophageal disorders, GERD # CAD s/p CABG, PCI # History of HFrEF, EF 20% - Patient underwent CABG in 2005, followed by PCI in 2006, carotid endarterectomy in 2010 - Endorsed that he is using Lasix 40 mg at home every day since CABG - Currently, patient does not appear to be in acute decompensation Plan - Recommend to continue clopidogrel, atorvastatin - Continue furosemide 40 Mg IV daily, carvedilol 12.5 Mg twice daily - Recommended to start GDMT, but patient doesnt want entresto due to insurance issues, so can continue lisinopril 5mg once daily # History of A-fib ---> Normal sinus Rhythm - Patient is using amiodarone 200 Mg once daily, carvedilol 12.5 Mg twice daily - Patient is on Xarelto for a long time and it was recently stopped in view of recurrent GI bleeds in July 2024 Plan - Recommended to continue amiodarone and carvedilol for now #AHRF secondary to viral versus bacterial URI versus COPD exacerbation #COPD exacerbation #Urinary tract infection #Hypertension #KIANA - Rest of the medical conditions to be treated per primary team Thank you for allowing us to participate in the care of the patient Patient plan of care was discussed with [facility] Pediatric Allergist, Dr. Julius Olmstead, PGY2
--- NOTE | 2024-10-03 16:50 | PC.SS ---
Omar Bedolla is 74 year old male admitted to [facility] for SOB. SS conducted bedside contact with the patient to complete initial assessment and to discuss discharge planning.? SW used all precautionary measures to complete initial. Role and reason for the contact was explained to Omar. Pt is alert and oriented times 4 Patient confirmed demographic information address on facesheet is accurate. Pt [place] . Pt was at [facility]; was discharged. Pt was working on getting medi-luda and O2 services set up with [facility] [place]. Patient identifies alexander Ashley, as his surrogate decision maker. Pt states prior to hospitalization he is independent on all ADLs as he is able to get around on DME with electric scooter and wheelchair. Pt does not have O2 and will need to have this ordered if necessary, preference is [facility]. Pt confirmed no history of mental health or substance abuse. HomeHealth was ordered via [facility] and pt had scheduled visit with them next week. Unsure of HH facility contact number provided by pt is [phone]. Pts PCP is Percy Whitfield, next appointment scheduled for 10/13/2024. Pharmacy of choice is [id number]. Discharge options discussed and the pt will return home. Pt was not receptive to [facility]. Facility will provide transportation upon DC. No further intervention required at this time, director social welfare would be available to address any further concerns. DC Plan: Home Contact: alexander Ashley, Address: Confirmed on face sheet PCP: Percy Whitfield
[2024-10-04] VITALS (15 sets, daily range): BP systolic 111–138; BP diastolic 51–74; PULSE 56–90; RESP 13–20; TEMP 36.1–36.9; O2SAT 92–99
[2024-10-04] MEDS: ALBUTEROL/IPRATROPIUM (Duoneb) RT SOL 3 ML NEBU INH ×4 (01:54→17:56)
[2024-10-04] MEDS: MORPHINE SULF INJ 10 MG/ML VIAL IVP ×4 (04:42→23:11)
[2024-10-04 06:12] LABS: Basophils # (Auto) 0.0 Thou/mm3 (0.0-0.2); Basophils % (Auto) 0 % (0-2.5); Eosinophils # (Auto) 0.0 Thou/mm3 (0.0-0.5); Eosinophils % (Auto) 0 % (0-10); Hematocrit 32.0 % (41.0-53.0); Hemoglobin 10.6 g/dL (13.5-16.0); Immature Granulocytes Auto 0.37 Thou/mm3 (0.00-0.00); Lymphocytes # (Auto) 0.6 Thou/mm3 (1.0-4.8); Lymphocytes % (Auto) 2 % (10-50); Mean Corpuscular HGB Conc 33.1 g/dl (31.0-37.0); Mean Corpuscular Hemoglobin 31.6 pg (25.0-35.0); Mean Corpuscular Volume 96 fL (80-100); Monocytes # (Auto) 1.1 Thou/mm3 (0.0-0.8); Monocytes % (Auto) 4 % (0-12); Neutrophils # (Auto) 27.8 Thou/mm3 (1.8-7.7); Neutrophils % (Auto) 93 % (37-80); Nucleated Red Blood Cell # 0.00 Thou/mm3 (0.00-0.00); Nucleated Red Blood Cell % 0 /100 WBC (0); Platelet Count 419 Thou/mm3 (140-440); RDW Standard Deviation 47.8 fL (35.1-43.9); Red Blood Count 3.35 Miln/mm3 (4.50-5.90); White Blood Count 29.8 Thou/mm3 (3.8-10.6)
[2024-10-04 06:54] LABS: Alanine Aminotransferase 38 U/L (10-49); Albumin, Serum 3.6 gm/dL (3.4-4.8); Albumin/Globulin Ratio 1.4 (1.2-2.2); Alkaline Phosphatase 209 U/L (46-116); Anion Gap 10 (7-16); Aspartate Amino Transferase 25 U/L (0-34); BUN/Creatinine Ratio 19 Ratio (12-20); Bilirubin,Total 0.5 mg/dL (0.3-1.2); Blood Urea Nitrogen 23 mg/dL (9-23); Calcium 8.6 mg/dL (8.3-10.6); Calcium (Corrected) 8.9 mg/dL (8.5-10.1); Carbon Dioxide 28.6 mMol/L (20.0-31.0); Chloride 99 mMol/L (98-107); Creatinine (Component) 1.2 mg/dL (0.6-1.3); Estimated Creatinine Clearance 75.4 mL/min (>60); Globulin 2.5 gm/dL (2.3-3.5); Glucose 132 mg/dL (74-106); Magnesium 2.0 mg/dL (1.6-2.6); Osmolality,Calculated 281 (275-295); Phosphorous 2.7 mg/dL (2.4-5.1); Potassium 4.6 mMol/L (3.4-5.1); Sodium 138 mMol/L (136-145); Total Protein 6.1 gm/dL (5.7-8.2); eGFR > 60 See Note
[2024-10-04] MEDS: HYDROcodone/APAP 5/325 TABLET 1 TAB PO (09:00)
[2024-10-04] MEDS: ATORVASTATIN CALCIUM 20 MG TABLET 40 MG PO (09:00)
[2024-10-04] MEDS: CLOPIDOGREL BISULFATE 75 MG TABLET PO (09:01)
[2024-10-04] MEDS: AMIODARONE HCL 200 MG TABLET PO (09:01)
[2024-10-04] MEDS: FUROSEMIDE INJ 10 MG/ML VIAL 2 ML 40 MG IVP (09:02)
--- NOTE | 2024-10-04 10:45 | PC.NURSE ---
Dr. Duran made aware of patient refusal of Enoxaparin.
[2024-10-04 11:24] LABS: Basophils # (Auto) 0.1 Thou/mm3 (0.0-0.2); Basophils % (Auto) 0 % (0-2.5); Eosinophils # (Auto) 0.0 Thou/mm3 (0.0-0.5); Eosinophils % (Auto) 0 % (0-10); Hematocrit 31.1 % (41.0-53.0); Hemoglobin 10.7 g/dL (13.5-16.0); Immature Granulocytes Auto 0.30 Thou/mm3 (0.00-0.00); Lymphocytes # (Auto) 0.5 Thou/mm3 (1.0-4.8); Lymphocytes % (Auto) 2 % (10-50); Mean Corpuscular HGB Conc 34.4 g/dl (31.0-37.0); Mean Corpuscular Hemoglobin 31.7 pg (25.0-35.0); Mean Corpuscular Volume 92 fL (80-100); Monocytes # (Auto) 1.4 Thou/mm3 (0.0-0.8); Monocytes % (Auto) 5 % (0-12); Neutrophils # (Auto) 27.9 Thou/mm3 (1.8-7.7); Neutrophils % (Auto) 93 % (37-80); Nucleated Red Blood Cell # 0.00 Thou/mm3 (0.00-0.00); Nucleated Red Blood Cell % 0 /100 WBC (0); Platelet Count 435 Thou/mm3 (140-440); RDW Standard Deviation 46.3 fL (35.1-43.9); Red Blood Count 3.38 Miln/mm3 (4.50-5.90); White Blood Count 30.0 Thou/mm3 (3.8-10.6)
--- NOTE | 2024-10-04 15:43 | ESPR_ITS ---
<Statement entered by Mena Madrid MD - 10/07/24 00:10> I personally reviewed the note of Dr. Munoz patient appears to be clinically stable no need for any cardiac workup do not think patient has any acute ischemic syndrome at this time primary team can discharge the patient to have follow-up with primary television maintenance worker Dr. Maurice Documentation for date of: 10/04/24 Subjective Subjective Interval history: Pt is seen at bedside, currently has no cardiac complaints. saturating on room air, vitals are stable and labs are reviewed. Cardiology team will sign off, Pt is going to follow up outpatient with Dr. Mcdonald to review hospital admission. Pt's denies any chest pain or pressures. Symptoms are likely due to GERD. Exam Vital Signs Temp Pulse Resp BP Pulse Ox O2 Del Method O2 Flow Rate 97.9 F 67 20 115/52 L 99 Nasal Cannula 1 10/04/24 12:00 10/04/24 12:40 10/04/24 12:40 10/04/24 12:00 10/04/24 12:40 10/04/24 12:00 10/04/24 12:40 Narrative Exam GENERAL: A&Ox3 . Awake, Not in acute distress NEURO: no focal neurological deficits HEENT: Atraumatic, Normocephalic. mucous membranes moist. Eyes open, symmetrical, & clear HEART: Normal Heart Sounds LUNGS: Clear to auscultation with no wheezing or crackles. ABDOMEN: soft, non-distended, non-tender, bowel sounds heard, no guarding or rebound tenderness SKIN: No Rash or ecchymoses EXTREMITIES: No edema, tenderness, able to move all 4 extremities, pedal pulses palpated Objective Labs 10/04/24 11:15 10/04/24 05:29 Labs: Laboratory Results - last 24 hr 10/04/24 10/04/24 05:29 11:15 WBC 29.8 H D 30.0 H RBC 3.35 L 3.38 L Hgb 10.6 L 10.7 L Hct 32.0 L 31.1 L MCV 96 92 MCH 31.6 31.7 MCHC 33.1 34.4 RDW Std Deviation 47.8 H 46.3 H Plt Count 419 435 Neut % (Auto) 93 H 93 H Lymph % (Auto) 2 L 2 L Nicholas % (Auto) 4 5 Eos % (Auto) 0 0 Baso % (Auto) 0 0 Neut # (Auto) 27.8 H 27.9 H Lymph # (Auto) 0.6 L 0.5 L Nicholas # (Auto) 1.1 H 1.4 H Eos # (Auto) 0.0 0.0 Baso # (Auto) 0.0 0.1 Immature Gran # (Auto) 0.37 H 0.30 H Absolute Nucleated RBC 0.00 0.00 Immature Gran % 1 H 1 H Nucleated RBC % 0 0 Sodium 138 Potassium 4.6 Chloride 99 Carbon Dioxide 28.6 Anion Gap 10 BUN 23 Creatinine 1.2 Estim Creat Clear Calc 75.4 eGFR > 60 BUN/Creatinine Ratio 19 Glucose 132 H D Calculated Osmolality 281 Calcium 8.6 Corrected Calcium 8.9 Phosphorus 2.7 Magnesium 2.0 Total Bilirubin 0.5 AST 25 ALT 38 Alkaline Phosphatase 209 H D Total Protein 6.1 Albumin 3.6 Globulin 2.5 Albumin/Globulin Ratio 1.4 Quality Measures Quality Measures none Advance care planning discussed with:: patient Assessment & Plan Assessment Current Active Medications: Generic Name Dose Route Start Last Admin Trade Name Freq PRN Reason Stop Dose Admin Acetaminophen 650 mg 10/03/24 00:03 Acetaminophen 325 Mg Tablet PO 11/01/24 21:43 Q6H PRN PAIN SCALE 1-3 (mild Hydrocodone Bitart/Acetaminophen 1 tab 10/02/24 23:50 10/04/24 09:00 Hydrocodone/Apap 5/325 Tablet PO 10/07/24 23:49 1 tab Q6HR PRN Administration PAIN SCALE 4-6 (Moderate Albuterol/Ipratropium 3 ml 10/03/24 01:00 10/04/24 12:38 Albuterol/Ipratropium (Duoneb) Rt Jacinta 3 Ml Nebu INH 11/02/24 00:59 3 ml Q6HRRT KARMEN Administration Amiodarone HCl 200 mg 10/03/24 09:00 10/04/24 09:01 Amiodarone Hcl 200 Mg Tablet PO 11/02/24 08:59 200 mg QDAY KARMEN Administration Atorvastatin Calcium 40 mg 10/03/24 09:00 10/04/24 09:00 Atorvastatin Calcium 20 Mg Tablet PO 11/02/24 08:59 40 mg QDAY KARMEN Administration Carvedilol 12.5 mg 10/03/24 09:00 10/04/24 09:01 Carvedilol 12.5 Mg Tablet PO 11/02/24 08:59 12.5 mg Q12H KARMEN Administration Clopidogrel Bisulfate 75 mg 10/03/24 09:00 10/04/24 09:01 Clopidogrel Bisulfate 75 Mg Tablet PO 11/02/24 08:59 75 mg QDAY KARMEN Administration Enoxaparin Sodium 40 mg 10/03/24 09:00 10/04/24 10:55 Enoxaparin Sod Inj 40 Mg/0.4 Ml Syringe SC 10/17/24 08:59 Not Given QDAY KARMEN Furosemide 40 mg 10/03/24 09:00 10/04/24 09:02 Furosemide Inj 10 Mg/Ml Vial 2 Ml IVP 11/02/24 08:59 40 mg QDAY KARMEN Administration Levofloxacin/Dextrose 750 mg in 150 mls @ 100 mls/hr 10/03/24 21:00 10/03/24 20:24 Levaquin Ivpb IV 10/10/24 20:59 100 mls/hr QDAY@2100 KARMEN Administration Lisinopril 5 mg 10/03/24 09:00 10/04/24 09:00 Lisinopril 2.5 Mg Tablet PO 11/02/24 08:59 5 mg QDAY KARMEN Administration Morphine Sulfate 1 mg 10/03/24 01:35 10/04/24 10:49 Morphine Sulf Inj 10 Mg/Ml Vial IVP 10/08/24 01:34 1 mg Q6HR PRN Administration PAIN SCALE 7-10 (Severe Nitroglycerin 0.4 mg 10/03/24 09:00 10/04/24 10:58 Nitroglycerin 0.4 Mg/Hr Patch.Td24 TOP 11/02/24 08:59 Not Given QDAY KARMEN Pantoprazole Sodium 40 mg 10/03/24 21:00 10/04/24 09:02 Pantoprazole Inj 40 Mg Vial IVP 11/02/24 20:59 40 mg BID KARMEN Administration Sodium Chloride 3 ml 10/02/24 17:01 10/02/24 18:45 Sodium Chloride Rt Jacinta 0.9% 3 Ml Nebu INH 11/01/24 17:00 3 ml PRN PRN Administration SOLN Plan A 74-year-old male with significant past medical history of hypertension, CAD status post CABG [2005], s/p PCI [2007], V. tach/V-fib after CABG s/p AICD, Right carotid stent placement [2011] atrial fibrillation, KIANA on CPAP, depression and anxiety presented to the hospital with chief complaints of chest discomfort since 1 day. # Chest pain, likely noncardiac # History of HFrEF, EF 20% s/p AICD - Patient presented to the hospital with chief complaints of chest discomfort, mainly in the lower chest, midline and upper abdomen - Associated with sweating and denies radiation, palpitations, short of breath, pedal edema - Endorsed that he had similar complaints in the past, especially after having meals - Endorsed that his chest pain relieved after receiving medications in the ED, nitroglycerin and morphine - Does not ambulate by himself at baseline due to bad osteoarthritis. Uses electric scooter for moving around and recently discharged from rehab - On physical examination, patient does not appear to be in heart failure - Vitals are stable at the time of admission - Troponins trend since admission - 0.027 >> 0.03 >> 0.032 >>0.03 - BNP is 255 at the time of admission - EKG showed normal sinus rhythm with no ST and T wave changes with occasional ectopics. - ECHO on 07/2024 - LV appears to be normal in size. The Estimated EF 20 %. Global left ventricular systolic function is severely decreased. The RV not well visualized, TAPSE normal. Mild to moderate . Plan - Patient is currently asymptomatic at the time of examination - Recommend to continue pantoprazole - Consult gastroenterology if needed to rule out esophageal disorders, GERD # CAD s/p CABG, PCI # History of HFrEF, EF 20% - Patient underwent CABG in 2005, followed by PCI in 2006, carotid endarterectomy in 2010 - Endorsed that he is using Lasix 40 mg at home every day since CABG - Currently, patient does not appear to be in acute decompensation Plan - Recommend to continue clopidogrel, atorvastatin - Continue furosemide 40 Mg IV daily, carvedilol 12.5 Mg twice daily - Recommended to start GDMT, but patient doesnt want entresto due to insurance issues, so can continue lisinopril 5mg once daily # History of A-fib ---> Normal sinus Rhythm - Patient is using amiodarone 200 Mg once daily, carvedilol 12.5 Mg twice daily - Patient is on Xarelto for a long time and it was recently stopped in view of recurrent GI bleeds in July 2024 Plan - Recommended to continue amiodarone and carvedilol for now #AHRF secondary to viral versus bacterial URI versus COPD exacerbation #COPD exacerbation #Urinary tract infection #Hypertension #KIANA - Rest of the medical conditions to be treated per primary team Assessment and plan discussed with my attending physician Dr. Julius Munoz (PGY-2)- Internal medicine resident
--- NOTE | 2024-10-04 17:24 | PD.RESPRO ---
Documentation for date of: 10/04/24 Subjective Subjective Interval history: Patient was evaluated bedside, currently saturating well at 2 L nasal cannula oxygen, reported improvement in chest pain. Did not notice increasing WBC count, WBC 29.8, urine culture positive for GNR, stays afebrile, will be treated on Levaquin, pending final microbiology results, possible reactive leukocytosis due to steroids, will repeat CBC in the afternoon and monitor for fever, discontinued steroids, will reevaluate tomorrow. Cardiology followed the patient, per cardiology patient has noncardiac etiology of chest pain, continue current management. Exam Vital Signs Temp Pulse Resp BP Pulse Ox O2 Del Method O2 Flow Rate 98.5 F 63 18 136/52 H 94 L Nasal Cannula 1 10/04/24 16:00 10/04/24 16:00 10/04/24 16:00 10/04/24 16:10/04/24 16:10/04/24 16:00 10/04/24 16:00 Narrative Exam General: AOx3, in no acute distress, on 2 L supplemental oxygen able to speak full sentences, no tachypnea or tachycardia noted. HEENT: NC/AT, mucous membranes moist, bilateral sclera anicteric Cardiovascular: regular rate and rhythm, S1/S2 present, no murmurs appreciated Pulmonary: breathing comfortably on 2 L NC, wheezing appreciated in lower lung walter, coarse expiratory sounds in larger airways but no crackles appreciated Abdominal: soft, non-tender, non-distended, no rebound/guarding, normal bowel sounds present Musculoskeletal: normal ROM, no peripheral edema Skin: warm and dry, intact, no rashes Neuro: CN II-XII intact, no focal deficits Objective Labs 10/04/24 11:15 10/04/24 05:29 Labs: Laboratory Results - last 24 hr 10/04/24 10/04/24 05:29 11:15 WBC 29.8 H D 30.0 H RBC 3.35 L 3.38 L Hgb 10.6 L 10.7 L Hct 32.0 L 31.1 L MCV 96 92 MCH 31.6 31.7 MCHC 33.1 34.4 RDW Std Deviation 47.8 H 46.3 H Plt Count 419 435 Neut % (Auto) 93 H 93 H Lymph % (Auto) 2 L 2 L [place] % (Auto) 4 5 Eos % (Auto) 0 0 Baso % (Auto) 0 0 Neut # (Auto) 27.8 H 27.9 H Lymph # (Auto) 0.6 L 0.5 L [place] # (Auto) 1.1 H 1.4 H Eos # (Auto) 0.0 0.0 Baso # (Auto) 0.0 0.1 Immature Gran # (Auto) 0.37 H 0.30 H Absolute Nucleated RBC 0.00 0.00 Immature Gran % 1 H 1 H Nucleated RBC % 0 0 Sodium 138 Potassium 4.6 Chloride 99 Carbon Dioxide 28.6 Anion Gap 10 BUN 23 Creatinine 1.2 Estim Creat Clear Calc 75.4 eGFR > 60 BUN/Creatinine Ratio 19 Glucose 132 H D Calculated Osmolality 281 Calcium 8.6 Corrected Calcium 8.9 Phosphorus 2.7 Magnesium 2.0 Total Bilirubin 0.5 AST 25 ALT 38 Alkaline Phosphatase 209 H D Total Protein 6.1 Albumin 3.6 Globulin 2.5 Albumin/Globulin Ratio 1.4 Quality Measures Quality Measures none Advance care planning discussed with:: patient Assessment & Plan Assessment Current Active Medications: Generic Name Dose Route Start Last Admin Trade Name Freq PRN Reason Stop Dose Admin Acetaminophen 650 mg 10/03/24 00:03 Acetaminophen 325 Mg Tablet PO 11/01/24 21:43 Q6H PRN PAIN SCALE 1-3 (mild Hydrocodone Bitart/Acetaminophen 1 tab 10/02/24 23:50 10/04/24 09:00 Hydrocodone/Apap 5/325 Tablet PO 10/07/24 23:49 1 tab Q6HR PRN Administration PAIN SCALE 4-6 (Moderate Albuterol/Ipratropium 3 ml 10/03/24 01:00 10/04/24 12:38 Albuterol/Ipratropium (Duoneb) Rt Jacinta 3 Ml Nebu INH 11/02/24 00:59 3 ml Q6HRRT KARMEN Administration Amiodarone HCl 200 mg 10/03/24 09:00 10/04/24 09:01 Amiodarone Hcl 200 Mg Tablet PO 11/02/24 08:59 200 mg QDAY KARMEN Administration Atorvastatin Calcium 40 mg 10/03/24 09:00 10/04/24 09:00 Atorvastatin Calcium 20 Mg Tablet PO 11/02/24 08:59 40 mg QDAY KARMEN Administration Carvedilol 12.5 mg 10/03/24 09:00 10/04/24 09:01 Carvedilol 12.5 Mg Tablet PO 11/02/24 08:59 12.5 mg Q12H KARMEN Administration Clopidogrel Bisulfate 75 mg 10/03/24 09:00 10/04/24 09:01 Clopidogrel Bisulfate 75 Mg Tablet PO 11/02/24 08:59 75 mg QDAY KARMEN Administration Enoxaparin Sodium 40 mg 10/03/24 09:00 10/04/24 10:55 Enoxaparin Sod Inj 40 Mg/0.4 Ml Syringe SC 10/17/24 08:59 Not Given QDAY KARMEN Furosemide 40 mg 10/03/24 09:00 10/04/24 09:02 Furosemide Inj 10 Mg/Ml Vial 2 Ml IVP 11/02/24 08:59 40 mg QDAY KARMEN Administration Levofloxacin/Dextrose 750 mg in 150 mls @ 100 mls/hr 10/03/24 21:00 10/03/24 20:24 Levaquin Ivpb IV 10/10/24 20:59 100 mls/hr QDAY@2100 KARMEN Administration Lisinopril 5 mg 10/03/24 09:00 10/04/24 09:00 Lisinopril 2.5 Mg Tablet PO 11/02/24 08:59 5 mg QDAY KARMEN Administration Morphine Sulfate 1 mg 10/03/24 01:35 10/04/24 17:07 Morphine Sulf Inj 10 Mg/Ml Vial IVP 10/08/24 01:34 1 mg Q6HR PRN Administration PAIN SCALE 7-10 (Severe Nitroglycerin 0.4 mg 10/03/24 09:00 10/04/24 10:58 Nitroglycerin 0.4 Mg/Hr Patch.Td24 TOP 11/02/24 08:59 Not Given QDAY KARMEN Pantoprazole Sodium 40 mg 10/03/24 21:00 10/04/24 09:02 Pantoprazole Inj 40 Mg Vial IVP 11/02/24 20:59 40 mg BID KARMEN Administration Sodium Chloride 3 ml 10/02/24 17:01 10/02/24 18:45 Sodium Chloride Rt Jacinta 0.9% 3 Ml Nebu INH 11/01/24 17:00 3 ml PRN PRN Administration SOLN Plan Omar Bedolla is a 74-year-old male with a past medical history of CAD status post CABG, HFrEF (EF 20% on 07/2024), A-fib on Amio, hypertension, COPD not on home O2, KIANA on CPAP, depression and anxiety who was admitted for AHRF secondary to viral versus bacterial URI versus COPD exacerbation and urinary tract infection. #Leukocytosis Likely reactive leukocytosis in the setting of steroids, no fever overnight, oxygen requirements continuing to downtrend, saturating well on 2 L oxygen. Clinically no evidence of worsening infection or sepsis. ? Discontinued steroids, will repeat CBC in the afternoon. #Atypical chest pain #GERD Patient evaluated bedside, had a rapid response earlier this morning due to chest pain. Patient complaining of 10/10 chest pain. Similar in character to chest pain on arrival, which resolved with nitroglycerin. Patient was given another sublingual nitroglycerin, which improved her chest pain to 5/10. Ordered nitro patch. Cardiology consult to on-call miller wood flour Dr. Madrid placed, as patient's miller wood flour Dr. Mcdonald is out of town for few days. Troponins were negative x 3 on arrival, repeat troponins after rapid response also negative. EKG similar to prior bundle-branch block changes, no acute ST elevation noted. Patient did notice worsening pain after meals, possibility of esophageal spasm cannot be ruled out, which will also improve after nitroglycerin. ? Ordered Protonix 40 mg twice daily, reported improvement with Protonix. ?Discontinue steroids #AHRF secondary to viral versus bacterial URI versus COPD exacerbation #Bronchitis seen on CXR #COPD exacerbation Initially presented with chest discomfort with associated shortness of breath but troponins negative x 2, EKG without ST or T wave abnormalities. Although BNP elevated, no lower extremity edema or crackles appreciated on exam so unlikely CHF exacerbation. Bronchitis seen on CXR with leukocytosis of 19, ESR elevated at 93, CRP, and Pro-Eric pending. Endorses 1 week of cough and subjective fever and chills after coming home from SNF, but no known sick contacts, thus fever URI versus COPD exacerbation. History of COPD but does not have home O2 or use inhalers. COVID and flu negative. ? Levofloxacin (10/03-), anaphylactic reactions to penicillins and cephalosporins ?Urine culture grew GNR ? Scheduled DuoNebs #Urinary tract infection ? UA showed turbid urine, 8 RBC, 400 WBC, rare bacteria, LE positive. Endorses urinary frequency and dysuria. ? 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 BNP slightly elevated at 255 but not in acute exacerbation at this time. Discharged with Entresto and lisinopril stopped but states that he has not been taking Entresto and has only been taking lisinopril at SNF. ? Lasix 40 mg IV daily given EF 20%, can switch to p.o. as seen fit ? Coreg 12.5 mg p.o. twice daily ? Lisinopril 5 mg p.o. daily ? Strict I's and O's #Atrial fibrillation on amiodarone Previously on Xarelto but experienced upper GI bleed during previous admission and was discontinued on discharge. ? Amiodarone 200 mg daily #CAD status post CABG ? Plavix 75 mg p.o. daily ? Atorvastatin 40 mg p.o. daily #Hypertension ? Coreg and lisinopril as above #KIANA ? CPAP at night Hospital management: Disposition: AHRF on IV antibiotics Diet: Cardiac Lines: PIV DVT prophylaxis: Enoxaparin SC daily CODE STATUS: DNR ----- Plan discussed with attending physician Dr. Gris Duran PG3
[2024-10-04] MEDS: LEVOFLOXACIN/D5W 750MG IVPB 750 MG/150 ML BAG 100 MG IV (20:46)
[2024-10-05] VITALS (15 sets, daily range): BP systolic 121–164; BP diastolic 50–71; PULSE 50–90; RESP 13–19; TEMP 36.1–36.6; O2SAT 94–98; BMI 41.3; BMI 41.2
[2024-10-05] MEDS: ALBUTEROL/IPRATROPIUM (Duoneb) RT SOL 3 ML NEBU INH ×3 (00:51→12:56)
[2024-10-05] MEDS: MORPHINE SULF INJ 10 MG/ML VIAL IVP ×2 (05:27→11:40)
[2024-10-05 06:27] LABS: Basophils # (Auto) 0.0 Thou/mm3 (0.0-0.2); Basophils % (Auto) 0 % (0-2.5); Eosinophils # (Auto) 0.0 Thou/mm3 (0.0-0.5); Eosinophils % (Auto) 0 % (0-10); Hematocrit 35.2 % (41.0-53.0); Hemoglobin 11.8 g/dL (13.5-16.0); Immature Granulocytes Auto 0.13 Thou/mm3 (0.00-0.00); Lymphocytes # (Auto) 0.9 Thou/mm3 (1.0-4.8); Lymphocytes % (Auto) 4 % (10-50); Mean Corpuscular HGB Conc 33.5 g/dl (31.0-37.0); Mean Corpuscular Hemoglobin 31.2 pg (25.0-35.0); Mean Corpuscular Volume 93 fL (80-100); Monocytes # (Auto) 1.4 Thou/mm3 (0.0-0.8); Monocytes % (Auto) 7 % (0-12); Neutrophils # (Auto) 19.1 Thou/mm3 (1.8-7.7); Neutrophils % (Auto) 89 % (37-80); Nucleated Red Blood Cell # 0.00 Thou/mm3 (0.00-0.00); Nucleated Red Blood Cell % 0 /100 WBC (0); Platelet Count 431 Thou/mm3 (140-440); RDW Standard Deviation 46.9 fL (35.1-43.9); Red Blood Count 3.78 Miln/mm3 (4.50-5.90); White Blood Count 21.6 Thou/mm3 (3.8-10.6)
[2024-10-05 07:05] LABS: Alanine Aminotransferase 52 U/L (10-49); Albumin, Serum 3.9 gm/dL (3.4-4.8); Albumin/Globulin Ratio 1.4 (1.2-2.2); Alkaline Phosphatase 216 U/L (46-116); Anion Gap 11 (7-16); Aspartate Amino Transferase 33 U/L (0-34); BUN/Creatinine Ratio 19 Ratio (12-20); Bilirubin,Total 0.5 mg/dL (0.3-1.2); Blood Urea Nitrogen 23 mg/dL (9-23); Calcium 9.1 mg/dL (8.3-10.6); Calcium (Corrected) 9.2 mg/dL (8.5-10.1); Carbon Dioxide 28.5 mMol/L (20.0-31.0); Chloride 101 mMol/L (98-107); Creatinine (Component) 1.2 mg/dL (0.6-1.3); Estimated Creatinine Clearance 75.4 mL/min (>60); Globulin 2.7 gm/dL (2.3-3.5); Glucose 98 mg/dL (74-106); Magnesium 2.2 mg/dL (1.6-2.6); Osmolality,Calculated 283 (275-295); Phosphorous 3.0 mg/dL (2.4-5.1); Potassium 4.4 mMol/L (3.4-5.1); Sodium 140 mMol/L (136-145); Total Protein 6.6 gm/dL (5.7-8.2); eGFR > 60 See Note
[2024-10-05] MEDS: HYDROcodone/APAP 5/325 TABLET 1 TAB PO (07:27)
[2024-10-05] MEDS: ATORVASTATIN CALCIUM 20 MG TABLET 40 MG PO (08:44)
[2024-10-05] MEDS: AMIODARONE HCL 200 MG TABLET PO (08:44)
[2024-10-05] MEDS: CLOPIDOGREL BISULFATE 75 MG TABLET PO (08:44)
--- NOTE | 2024-10-05 08:50 | PC.NURSE ---
DOCTOR AT BEDSIDE ASSESS PT, WAS MADE AWARE NITRO PATCH WAS REMOVED BY ANOTHER MD, RECOMMENDED PRN INSTEAD OF SCHEDULE DAILY, PT ALSO HAS BEEN REFUSING LOVENOX.
--- NOTE | 2024-10-05 09:54 | PC.NURSE ---
DISCHARGE PUT IN AT 0952, COORDINATED CARE WITH YEAST TENDER BOONE ETA TIME 1500. BOONE WILL UPDATE IF ANY CHANGES.
--- NOTE | 2024-10-05 10:20 | PC.SS ---
SS met with pt to provide him with verbal choices for d/c to SNF vs home. Pt states he was previously at [facility]. Pt explained Lead Maintenance TechnicianeNha from [facility] assisted him with applying for Medical and Home Health Care which consisted of free caregivers for 1 month. SS spoke to Neha who explained they arranged for Home Health Services not caregivers and submitted Medical application which is in process. Pt is aware caregivers are private pay and Home Health was arranged. SS explained Home Health can be arranged again but they are not 24 hour caregivers. Patient's choice is to return to [facility]. SS offered to contact his son to inform him of d/c plan and pt refused (he will notify son). SS spoke to India from [facility] and they will accept pt. SS has sent inquiry using [employer] upon [place]'s request.
--- NOTE | 2024-10-05 11:11 | PC.SS ---
Addendum entered by Nina Madden 10/05/24 13:01: [facility] assessment has been sent to [facility] through file exchange. Per bedside nurse, Yane pt is not any physic meds, anxiety or depression meds. SS has setup transportation with [facility]. Pt does not have Medical for transportation coverage and is requiring Oxygen during transport. Per bedside nurse pt is not safe to sit into wheelchair. has sent patient's facesheet, ambulance form, and LAYTON signed to [facility] using [employer]. SS spoke to Casey from [facility] to request transport for 3:30 to [facility]. Pt is aware. Bedside nurse, Yane is aware. India from [facility] is aware. Daphne SILVA is aware. Original Note: [facility] assessment is requiring Level II Mental Health Evaluation referral is required. SS attempted to contact Richy from [facility] but was only able to leave voicemail.
--- NOTE | 2024-10-05 14:09 | EKG_ITS ---
[facility] Test Date: 2024-10-05 Pat Name: DEMARCUS SINCLAIR Department: Room: S358A Gender: Male Quality Control Operator: STACY : 1950 Requested By: Deandra Nguyễn Order Number: [id number] Reading MD: Deandra Nguyễn Measurements Intervals [place] Rate: 64 P: 24 CA: 185 QRS: -21 QRSD: 165 T: 149 QT: 503 QTc: 521 Interpretive Statements SINUS RHYTHM WITH FREQUENT VENTRICULAR PREMATURE COMPLEXES WITH OCCASIONAL SUPRAVENTRICULAR PREMATURE COMPLEXES INTRAVENTRICULAR CONDUCTION DELAY INFERIOR MYOCARDIAL INFARCTION , PROBABLY OLD Compared to ECG 10/03/2024 08:43:56 Ventricular premature complex(es) now present Intraventricular conduction delay now present Myocardial infarct finding now present Left bundle-branch block no longer present /store/S0/[id number]
--- NOTE | 2024-10-05 14:51 | ESDS_ITS ---
Planned Discharge Date 10/05/24 DS: Providers Provider Date of admission: 10/02/24 21:44 Primary care physician: Percy Whitfield MD Admitting Provider: Yousuf Munoz MD Attending Provider on Admission: Rebel Landry MD Consults: 10/03/24 08:41 Consult to Cardiology Stat Comment: Consulting Provider: Mena Madrid Attending Provider on DC: Trey Haddad Discharging Provider: Trey Haddad Anticipated date of discharge: 10/05/24 DS: Diagnosis Problem List Completed Was Problem List Reviewed/Reconciled?: Yes Hospital Course Hospital Course Hospital course: Summary: Patient is a 74 year old male with a PMHx of CAD w/CABG x3, CHF, 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 COPD exacerbation and UTI. ED Course: Patient was seen for / non-radiating chest pain which was exacerbated by movement. Patient denied SOB or previous similar episodes. Patient stated that he experienced a viral infection a few days prior. Pertinent labs include: BNP 255, Trop 0.03, ESR 93, WBC 19.3, Urine WBC 400, Hgb 11.6, Hct 35.2, Alk Phos 247. CXR was consistent with bronchitis consistent with the patient's smoking history. EKG demonstrated sinus rhythm with multiple PVCs. Medications given include: Albuterol/Ipratropium 6 mL, Morphine 4 mg, Rocefin 1 mg, and SoluMedrol 125 mg. Hospital Course: Patient was an overnight admit 10/02 for acute hypoxic respiratory failure secondary to viral or bacterial pneumonia vs. COPD exacerbation and UTI. Patient had a rapid response 10/03 for chest pain which resolved with sublingual nitroglycerin. Patient noted substernal pain after meals. Patient noted improved dysuria and clear urine. Medications given include: Albuterol/Ipratropium breathing treatment, Morphine 1 mg IVP PRN, Levoquin 750 mg for URI and UTI, and Protonix 40 mg IVP BID for GERD. Patient was discontinued on Prednisone 20 mg PO QD due to possible reactive leukocytosis. Patient will continue home meds upon discharge. Pertinent lab values include: WBC 21.6 Hgb 11.8 Hct 35.2 Alk Phos 216. EKG 10/05 demonstrated sinus rhythm with QTc prolongation. Per cardiology consult, with Dr. Madrid patient has non-cardiac etiology for chest pain. Patient is stable and at baseline. Instructions: -Please continue ciprofloxacin 500 mg oral twice daily for the next 3 days -Take all medication as prescribed -Please follow up with your primary care provider within one week of discharge and/or cardiology, follow-up with EKG as QT prolongation was noted -If your symptoms worsen,please seek immediate medical attention and return to your nearest emergency room -If you do not have a primary care provider, you may follow up at the [facility] at [address] [place] [address] [address], [place] [address], #Atypical chest pain #GERD #Reactive Leukocytosis #AHRF secondary to viral versus bacterial URI versus COPD exacerbation #Bronchitis seen on CXR #COPD exacerbation #Urinary tract infection #HFrEF (EF 20% on 07/2024) status post [employer] #Atrial fibrillation on amiodarone #CAD status post CABG #Hypertension #KIANA CAse discussed with attending Dr. Landry and resident Dr. Nguyễn - The patient's plan was discussed with attending Dr. Gris Nguyễn MD PGY2 Internal Medicine Status at Discharge Cognitive/behavioral status at discharge: Patient is AO x 4. Time Spent with Patient Time attestation: Total time spent providing and/or coordinating discharge services: Time spent: Greater than 30 minutes Home Health Home Health Referral Orders: 10/05/24 10:44 Home Health Referral Routine Reason For Exam: PT Home-Bound The patient must either because of illness or injury, need the aid of suppo rtive devices such as crutches, canes, wheelchairs, and walkers; the use of special transportation; or the assistance of another person in order to leave their place of residence; OR have a condit ion such that leaving his or her home is medically contraindicated. In addition, the patient also meets the following criteria: patient is normally unable to leave the home and leaving home requires considerable taxing effort. Addendum to Home Health Certification Practitioner's Certification: I certify that the patient has been under my care in the hospital and the care of attending physician (see below). We had a pvko-xn-vibn encounter on (see date below). My clinical findings indicate that the patient is home bound per the above criteria and the Home Health Services noted in these orders are medically necessary. The primary reason for the awer-yv-gtgo encounter is related to the fact that the patient requires home health services. Date Certifying [id number] Physician Encounter: 10/02/24 Physician's Name who will Assume Oversight for Services: Percy Whitfield Physician's Phone No.who will Assume Oversight for Service: [employer] - Community Resources: No PT to Evaluate: Yes PT to evaluate and provide a treatmnet plan to increase patient's mobility and strength. Wound Care: No IV Therapy: No RN Safety Evaluation: Yes RN to evaluate and create a plan of care that will produce positive outcomes. Palliative Treatment: No Palliative treatment and evaluate the need for hospice. Home Health Aide - Personal Care: No Home Health Aide to assist with any ADL's. Exam Vital Signs Temp Pulse Resp BP Pulse Ox O2 Del Method O2 Flow Rate 96.9 F 54 L 18 123/71 98 Nasal Cannula 2 10/05/24 12:00 10/05/24 12:56 10/05/24 12:56 10/05/24 12:00 10/05/24 12:56 10/05/24 12:00 10/05/24 12:56 Narrative Exam General Appearance: Alert & Oriented X3, well-nourished male who is lying in bed in no acute distress. HEENT: Skull symmetrical and atraumatic. Conjunctivae pink and moist. Pupils equal, round, reactive to light and accommodation (PERRL). External ear without lesion or discharge. Straight, nares patient, mucosa pink, no discharge. No thyroid nodule appreciated. No cervical lymphadenopathy. Cardio: Normal Rate and Rhythm with S1 and S2 heart sounds. No murmurs or extra heart sounds auscultated. No bruits on carotid auscultation. No peripheral edema or cyanosis. Lungs: Symmetric with good expansion. Chest and back non-tender. Breath sounds vesicular without crackles, wheezing or rhonchi Abdomen: Non-tender, Non-distended, Normal Reactive Bowel Sounds Neuro: Alert, cooperative, oriented to person, place, and time. Speech clear. CN grossly intact. Upper motor strength 5/5 and Lower motor strength 5/5. Sensation intact. Discharge Plan Plan Patient Disposition: Xfer Skilled Nsg Fac (SNF) Patient condition on transfer: Stable Care Plan Goals: Instructions: -Please continue ciprofloxacin 500 mg oral twice daily for the next 3 days -Take all medication as prescribed -Please follow up with your primary care provider within one week of discharge and/or cardiology, follow-up with EKG as QT prolongation was noted -If your symptoms worsen,please seek immediate medical attention and return to your nearest emergency room -If you do not have a primary care provider, you may follow up at [facility] [address], [place] [address], Prescriptions/Referrals Prescriptions/Med Rec: New ciprofloxacin HCl 500 mg tablet 500 mg PO BID Qty: 6 0RF Continued Amiodarone Hcl 200 MG tablet 200 mg PO QDAY Qty: 0 atorvastatin [Lipitor] 40 MG tablet 40 mg PO QDAY Qty: 0 lisinopril 5 MG tablet 5 mg PO QDAY Qty: 0 furosemide 40 mg tablet 40 mg PO BID Patient Comments: TAKE 1 TABLET BY MOUTH TWICE A DAY clopidogrel 75 mg Tablet 75 mg PO QDAY 30 Days Qty: 30 1RF carvedilol 12.5 mg tablet 12.5 mg PO Q12H Patient Comments: TAKE 1 TABLET BY MOUTH TWICE A DAY multivitamin [Daily Multi-Vitamin] Tablet 1 tab PO QAM ascorbic acid (vitamin C) [C-1000] 1,000 mg tablet 1 g PO QDAY Discontinued atorvastatin 40 mg tablet 40 mg PO QDAY Patient Comments: TAKE 1 TABLET BY MOUTH EVERY DAY amiodarone 200 mg tablet 200 mg PO QDAY Patient Comments: TAKE 1 TABLET BY MOUTH EVERY DAY furosemide 40 mg tablet 40 mg PO QAM Referrals: Percy Whitfield MD [Primary Care Provider] - Patient/Caregiver Discharge Instructions Meds to Beds: No Discharge Activity: as per physical therapy Print Language: Bengali Stand Alone Forms: Anna Award Info., Patient Portal Info Letter Discharge Order Discharge Orders: Discharge (Routine); Ordered 10/05/24 Ordered By: Deandra Nguyễn Quality Discharge Quality Measures VTE prophylaxis Attestestation Attestation I have discussed and was present for the essential components of the history, physical examination, diagnosis, and treatment plan with the resident. I agree with the patient's care as documented by the resident and amended herein by me. Rebel Landry MD. Although this document has been carefully reviewed, there may still be some phonetic and other typographical errors. These errors are purely grammatical due to imperfections in the software program and should not be construed in any way to compromise the substance of the patient's medical care during this visit.
--- NOTE | 2024-10-05 15:53 | PC.NURSE ---
COORDINATED CARE WITH DR. KIM PLAN IS STILL TO DISHCARGE PT TO SNF, HE WILL NEED TO FOLLOW UP WITH PRIMARY OR CARDIOLOGY OUTPATIENT.
--- NOTE | 2024-10-05 17:11 | PC.NURSE ---
REPORT GIVEN TO NIDIA MCCLAIN AT [facility]. ETA 1730.
--- NOTE | 2024-10-05 17:16 | PC.NURSE ---
[facility]PATCH [facility] 1830. [facility] MADE AWARE.
--- NOTE | 2024-10-06 10:53 | PC.CC ---
received HH order on 10/05/24. Attempted to enter in [employer], could not find account. I called the patient to verify his HH agency, he stated he set it up but wasn't out long enough to do SOC. He is currently at [facility]. Encounter for HH not continued.
== END 2024-10-05 18:28 | disposition skilled nursing facility (03) | DRG 189 ==
LOC: SERX 20:24 → SERHOLD 22:08 → S2NX 10-03 00:43 → S3NX 10-05 04:41
PROVIDERS: Family Medicine; Student in an Organized Health Care Education/Training Program; Admitting Provider Student in an Organized Health Care Education/Training Program; Emergency Provider Emergency Medicine; PCP Family Medicine; Visit Provider Internal Medicine
DX: J96.01 Acute respiratory failure with hypoxia (principal); J15.9 Unspecified bacterial pneumonia; I50.22 Chronic systolic (congestive) heart failure; J44.1 Chronic obstructive pulmonary disease with (acute) exacerbation; N39.0 Urinary tract infection, site not specified; I25.10 Atherosclerotic heart disease of native coronary artery without angina pectoris; I11.0 Hypertensive heart disease with heart failure; G47.33 Obstructive sleep apnea (adult) (pediatric); Y95 Nosocomial condition; I48.91 Unspecified atrial fibrillation; F12.90 Cannabis use, unspecified, uncomplicated; F32.A Depression, unspecified; F41.9 Anxiety disorder, unspecified; K21.9 Gastro-esophageal reflux disease without esophagitis; Z66 Do not resuscitate; Z95.1 Presence of aortocoronary bypass graft; Z95.810 Presence of automatic (implantable) cardiac defibrillator; I49.3 Ventricular premature depolarization; Z87.891 Personal history of nicotine dependence; Z79.01 Long term (current) use of anticoagulants; I44.7 Left bundle-branch block, unspecified; M17.0 Bilateral primary osteoarthritis of knee; Z79.02 Long term (current) use of antithrombotics/antiplatelets; Z79.899 Other long term (current) drug therapy; Z86.73 Personal history of transient ischemic attack (TIA), and cerebral infarction without residual deficits; Z98.61 Coronary angioplasty status; Z88.0 Allergy status to penicillin; Z88.8 Allergy status to other drugs, medicaments and biological substances; Z88.6 Allergy status to analgesic agent
CPT/HCPCS: 36415; 71045; 80053; 81001; 82550; 83735; 83880; 84100; 84145; 84484; 85025; 85610; 85652; 85730; 86140; 87077; 87081; 87086; 87186; 87205; 87400; 87634; 87811; 93005; 94640; 94762; 96365; 96367; 96375; 96376; 99285; A9270; J0456; J0696; J1650; J1938; J1956; J2270; J2470; J2919; J7030; J7050; J7512

== ENCOUNTER → 2024-12-17 | Outpatient (CLI) | payer MEDICARE, SELFPAY ==
[2024-12-17 10:26] LABS: Basophils # (Auto) 0.1 Thou/mm3 (0.0-0.2); Basophils % (Auto) 1 % (0-2.5); Eosinophils # (Auto) 0.4 Thou/mm3 (0.0-0.5); Eosinophils % (Auto) 4 % (0-10); Hematocrit 35.3 % (41.0-53.0); Hemoglobin 11.4 g/dL (13.5-16.0); Immature Granulocytes Auto 0.05 Thou/mm3 (0.00-0.00); Lymphocytes # (Auto) 0.9 Thou/mm3 (1.0-4.8); Lymphocytes % (Auto) 9 % (10-50); Mean Corpuscular HGB Conc 32.3 g/dl (31.0-37.0); Mean Corpuscular Hemoglobin 31.4 pg (25.0-35.0); Mean Corpuscular Volume 97 fL (80-100); Monocytes # (Auto) 1.0 Thou/mm3 (0.0-0.8); Monocytes % (Auto) 10 % (0-12); Neutrophils # (Auto) 7.5 Thou/mm3 (1.8-7.7); Neutrophils % (Auto) 75 % (37-80); Nucleated Red Blood Cell # 0.00 Thou/mm3 (0.00-0.00); Nucleated Red Blood Cell % 0 /100 WBC (0); Platelet Count 337 Thou/mm3 (140-440); RDW Standard Deviation 55.1 fL (35.1-43.9); Red Blood Count 3.63 Miln/mm3 (4.50-5.90); White Blood Count 10.0 Thou/mm3 (3.8-10.6)
[2024-12-17 10:42] LABS: B-Type Natriuretic Peptide 231 pg/mL (0-100)
[2024-12-17 10:44] LABS: Alanine Aminotransferase 21 U/L (10-49); Albumin, Serum 3.8 gm/dL (3.4-4.8); Alkaline Phosphatase 157 U/L (46-116); Anion Gap 8 (7-16); Aspartate Amino Transferase 22 U/L (0-34); BUN/Creatinine Ratio 18 Ratio (12-20); Bilirubin,Direct 0.2 mg/dL (0.0-0.3); Bilirubin,Total 0.4 mg/dL (0.3-1.2); Blood Urea Nitrogen 22 mg/dL (9-23); Calcium 8.9 mg/dL (8.3-10.6); Carbon Dioxide 28.9 mMol/L (20.0-31.0); Cardiac Risk Estimate 3.7 RATIO (4.0-6.7); Chloride 105 mMol/L (98-107); Cholesterol 198 mg/dL (132-200); Creatinine (Component) 1.2 mg/dL (0.6-1.3); Free T4 (Free Thyroxine) 1.33 ng/dL (0.89-1.76); Glucose 105 mg/dL (74-106); HDL Cholesterol 54 mg/dL (40-60); LDL Cholesterol,Calculated 128 mg/dL (0-130); Osmolality,Calculated 286 (275-295); Potassium 4.5 mMol/L (3.4-5.1); Sodium 142 mMol/L (136-145); Thyroid Stimulating Hormone 3.95 uIU/mL (0.55-4.78); Total Protein 6.2 gm/dL (5.7-8.2); Triglycerides 79 mg/dL (30-150); eGFR > 60 See Note
== END | disposition home or self-care (01) ==
LOC: COPL 09:17
PROVIDERS: PCP Family Medicine; Referring Provider Internal Medicine Cardiovascular Disease; Visit Provider Internal Medicine Cardiovascular Disease
DX: I11.0 Hypertensive heart disease with heart failure (principal); I50.9 Heart failure, unspecified; E78.5 Hyperlipidemia, unspecified; I25.118 Atherosclerotic heart disease of native coronary artery with other forms of angina pectoris
CPT/HCPCS: 36415; 80048; 80061; 80076; 83880; 84439; 84443; 85025